=== PATIENT | female | born 1935 | race Caucasian/White ===

== ENCOUNTER 2017-03-30 06:13 | Day surgery (SDC) | payer MEDICARE, BC ==
[~2017-03-30] VITALS: Ht 162.6 cm; Wt 91.0 kg
[~2017-03-30 06:13] MED LIST: ALEN70 PO; ATOR40TA PO; DICLOFENAC SOD150 ML TP; FOLI1 PO; GLIP5 PO; HYDCHL25 PO; MELO7.5 PO; METF500 PO; METTREX2.5 PO; PRED1 PO; PRED5 PO; Prinivil10 MG PO
== END 2017-03-30 08:19 | disposition home or self-care (01) ==
LOC: ORSCSDS 06:13
PROVIDERS: Ophthalmology
PROC: 08RJ3JZ Replacement of Right Lens with Synthetic Substitute, Percutaneous Approach (ICD-10-PCS; principal; 2017-03-30 07:30)
DX: H25.11 Age-related nuclear cataract, right eye (principal); I10 Essential (primary) hypertension; J44.9 Chronic obstructive pulmonary disease, unspecified; E11.9 Type 2 diabetes mellitus without complications; Z79.899 Other long term (current) drug therapy
CPT/HCPCS: 82947; J2250; J3301; J7040; V2632

== ENCOUNTER 2017-05-11 07:04 | Day surgery (SDC) | payer MEDICARE, BC ==
[~2017-05-11] VITALS: Ht 162.6 cm; Wt 90.6 kg
[2017-05-11] MEDS ORDERED: METF500 PO (07:34)
== END 2017-05-11 09:43 | disposition home or self-care (01) ==
LOC: ORSCSDS 07:04
PROVIDERS: Ophthalmology
PROC: 08RK3JZ Replacement of Left Lens with Synthetic Substitute, Percutaneous Approach (ICD-10-PCS; principal; 2017-05-11 08:30)
DX: H25.12 Age-related nuclear cataract, left eye (principal); J44.9 Chronic obstructive pulmonary disease, unspecified; E11.9 Type 2 diabetes mellitus without complications; M06.9 Rheumatoid arthritis, unspecified; Z79.84 Long term (current) use of oral hypoglycemic drugs; Z79.899 Other long term (current) drug therapy
CPT/HCPCS: 82947; J2250; J3010; J3301; J7040; V2632

== ENCOUNTER 2017-07-15 08:17 | Day surgery (SDC) | payer MEDICARE, BC | END 2017-07-15 22:55 | disposition home or self-care (01) | LOC: MOI US 08:17 | PROC: 0HBT3ZX Excision of Right Breast, Percutaneous Approach, Diagnostic (ICD-10-PCS; principal; 2017-07-15) | DX: C50.911 Malignant neoplasm of unspecified site of right female breast (principal); Z17.0 Estrogen receptor positive status [ER+] | CPT/HCPCS: 19083; 77065; 88305; 88360; G0279 ==

== ENCOUNTER → 2020-02-05 | Outpatient (CLI) | payer MEDICARE, BC ==
[2020-02-05 09:51] LABS: Anion Gap 3 mmol/L (6-16); Blood Urea Nitrogen 13 mg/dL (8-24); Bun/Creatinine Ratio 25.8 (12.0-20.0); CO2, Blood 31 mmol/L (21-32); Calcium, Blood 9.5 mg/dL (8.5-10.1); Chloride, Blood 106 mmol/L (98-108); Free Thyroxine 0.96 ng/dL (0.70-1.60); Glomerular Filtration Rate >60 (60-); Glucose, Blood 127 mg/dL (70-99); Magnesium, Blood 2.1 mg/dL (1.6-2.4); Potassium, Blood 4.4 mmol/L (3.5-5.5); Sodium, Blood 140 mmol/L (136-145)
== END | disposition home or self-care (01) ==
LOC: LAB SHORT 07:40 → OLS 07:40 → LAB FUT 03-08 13:20
PROVIDERS: Internal Medicine Cardiovascular Disease
DX: R00.2 Palpitations (principal)
CPT/HCPCS: 36415; 80048; 83735; 84439; 84443

== ENCOUNTER → 2021-02-23 | Outpatient (CLI) | payer MEDICARE, BC | END | disposition home or self-care (01) | LOC: LAB 11:22 → LAB SHORT 11:22 → LAB FUT 07-30 14:10 | DX: I10 Essential (primary) hypertension (principal) | CPT/HCPCS: 82043 ==

== ENCOUNTER 2021-04-12 04:34 | Inpatient (IN) | payer MEDICARE, BC ==
[~2021-04-12] VITALS: Ht 162.6 cm; Wt 84.9 kg
[~2021-04-12 04:34] MED LIST changes: +METF500C PO
[2021-04-12 05:06] LABS: BASOPHILS ABSOLUTE AUTO 0.02 K/mm3 (0.00-0.23); BASOPHILS PERCENT AUTO 0 % (0-2); EOSINOPHILS ABSOLUTE AUTO 0.07 K/mm3 (0.00-0.68); EOSINOPHILS PERCENT AUTO 1 % (0-6); Hematocrit 44.2 % (33.0-51.0); Hemoglobin 14.5 g/dL (11.5-16.0); IMMATURE GRAN ABSOLUTE AUTO 0.03 K/mm3 (0.00-0.10); IMMATURE GRAN PERCENT AUTO 0 % (0-1); LYMPHOCYTES ABSOLUTE AUTO 1.64 K/mm3 (0.84-5.20); LYMPHOCYTES PERCENT AUTO 21 % (21-46); MONOCYTES ABSOLUTE AUTO 0.54 K/mm3 (0.16-1.47); MONOCYTES PERCENT AUTO 7 % (4-13); Mean Corpuscular HGB 29.7 pg (26.0-34.0); Mean Corpuscular HGB Conc 32.8 g/dL (31.5-36.5); Mean Corpuscular Volume 91 fL (80-100); Mean Platelet Volume 9.7 fL (9.1-12.4); NEUTROPHILS ABSOLUTE AUTO 5.52 K/mm3 (1.96-9.15); NEUTROPHILS PERCENT AUTO 71 % (41-73); Platelet Count 221 K/mm3 (150-400); RDW Coefficient Variation 12.5 % (11.7-14.2); RDW Standard Deviation 41.9 fL (35.1-46.3); Red Blood Cell Count 4.88 M/mm3 (3.80-5.20); White Blood Cell Count 7.82 K/mm3 (4.00-11.30)
[2021-04-12 05:33] LABS: Alanine Aminotransfer (ALT/SGP 35 U/L (12-78); Albumin, Blood 3.7 g/dL (3.4-5.0); Alk Phos 97 U/L (50-136); Anion Gap 9 mmol/L (6-16); Aspartate Aminotrans (AST/SGOT 68 U/L (12-37); Bilirubin, Total 0.6 mg/dL (0.1-1.0); Blood Urea Nitrogen 11 mg/dL (8-24); Bun/Creatinine Ratio 29.5 (12.0-20.0); CO2, Blood 25 mmol/L (21-32); Calcium, Blood 9.1 mg/dL (8.5-10.1); Chloride, Blood 103 mmol/L (98-108); Creatinine, Blood 0.37 mg/dL (0.40-1.00); Globulin, Blood 3.7 g/dL (2.2-4.0); Glomerular Filtration Rate >60 (60-); Glucose, Blood 216 mg/dL (70-99); Potassium, Blood 4.8 mmol/L (3.5-5.5); Sodium, Blood 137 mmol/L (136-145); Total Protein, Blood 7.4 g/dL (6.4-8.2); Troponin I 0.046 ng/mL (0.000-0.040)
[2021-04-12 05:43] LABS: Influenza A, PCR NEGATIVE (NEGATIVE); Influenza B, PCR NEGATIVE (NEGATIVE); Resp Syncytial Virus, PCR NEGATIVE (NEGATIVE)
[2021-04-12 05:44] LABS: SARS-Cov-2 (COVID-19) PCR, MMC POSITIVE (NEGATIVE)
--- NOTE | 2021-04-12 18:18 | NUR ---
1720 RECEIVED PT TO RM 327 VIA GURNEY FROM ER. PT ABLE TO TX SELF TO BED. PT ADMITTED FOR SEPSIS PNM R/T COVID. PT TO ER WITH C/O INCREASED DIFFICULTY GETTING TO THE BTHRM D/T INCREASED SOB. PT TO ER WITH BIOX IN 80'S. PT PLACED ON 3L O2, WITH IMPROVEMENT. HX HTN, DM, AND R/A. PT IS A&O, PLEASANT AND CO-OP, BUT VERY MECHOOPDA. SEPSIS BOLUS GIVEN IN ER. PT ON LR AT 100cc/HR. PT LIVES WITH HER . USES A CANE AND FWW AT BASELINE. CURRENTLY WAITING FOR DINNER TRAY. PT REPORTS NOT BEING GIVEN ANYTHING TO EAT SINCE 5 PM YESTERDAY, WHEN SHE WAS AT HOME. DENIED FURTHER NEEDS AT THIS TIME. CALL LT IN REACH.
[2021-04-12] MEDS ORDERED: ANASTROZOLE1 M7 PO (19:11)
[2021-04-12] MEDS ORDERED: SERT50 PO (19:13)
[2021-04-12] MEDS ORDERED: OMEP20ER PO (19:16)
[2021-04-12] MEDS ORDERED: METO25ER PO (19:17)
[2021-04-12] MEDS ORDERED: ASPI81CH PO (19:17)
[2021-04-13 04:36] LABS: BASOPHILS ABSOLUTE AUTO 0.01 K/mm3 (0.00-0.23); BASOPHILS PERCENT AUTO 0 % (0-2); EOSINOPHILS PERCENT AUTO 0 % (0-6); Hematocrit 40.4 % (33.0-51.0); IMMATURE GRAN ABSOLUTE AUTO 0.01 K/mm3 (0.00-0.10); IMMATURE GRAN PERCENT AUTO 0 % (0-1); LYMPHOCYTES ABSOLUTE AUTO 0.69 K/mm3 (0.84-5.20); LYMPHOCYTES PERCENT AUTO 16 % (21-46); MONOCYTES ABSOLUTE AUTO 0.31 K/mm3 (0.16-1.47); MONOCYTES PERCENT AUTO 7 % (4-13); Mean Corpuscular HGB 29.5 pg (26.0-34.0); Mean Corpuscular HGB Conc 32.2 g/dL (31.5-36.5); Mean Corpuscular Volume 92 fL (80-100); Mean Platelet Volume 9.7 fL (9.1-12.4); NEUTROPHILS ABSOLUTE AUTO 3.42 K/mm3 (1.96-9.15); NEUTROPHILS PERCENT AUTO 77 % (41-73); Platelet Count 195 K/mm3 (150-400); RDW Coefficient Variation 12.2 % (11.7-14.2); RDW Standard Deviation 41.1 fL (35.1-46.3); White Blood Cell Count 4.44 K/mm3 (4.00-11.30)
[2021-04-13 05:19] LABS: Alanine Aminotransfer (ALT/SGP 28 U/L (12-78); Albumin, Blood 2.9 g/dL (3.4-5.0); Alk Phos 81 U/L (50-136); Anion Gap 7 mmol/L (6-16); Aspartate Aminotrans (AST/SGOT 15 U/L (12-37); Bilirubin, Total 0.4 mg/dL (0.1-1.0); Blood Urea Nitrogen 13 mg/dL (8-24); Bun/Creatinine Ratio 35.2 (12.0-20.0); CO2, Blood 26 mmol/L (21-32); Calcium, Blood 8.5 mg/dL (8.5-10.1); Chloride, Blood 105 mmol/L (98-108); Creatinine, Blood 0.37 mg/dL (0.40-1.00); Globulin, Blood 2.9 g/dL (2.2-4.0); Glomerular Filtration Rate >60 (60-); Glucose, Blood 257 mg/dL (70-99); Sodium, Blood 138 mmol/L (136-145); Total Protein, Blood 5.8 g/dL (6.4-8.2)
--- NOTE | 2021-04-13 06:02 | NUR ---
SHIFT SUMMARY: PATIENT HAS SLEPT WELL THIS SHIFT. MAINTAINING 02 SAT IN THE HIGH 90'S ON 3L NS. NO REPORTS OF PAIN. ONE ASSIST TO THE BSC DUE TO LINES BEING TRIPPING HAZARDS. PATIENT REMAINS IN ISOLATION FOR COVID.
--- NOTE | 2021-04-13 18:43 | NUR ---
SHIFT SUMMARY A/O X4, VSS, TOLERATING PO, AMBULATES c ASSISTANCE, UP TO CHAIR FOR MEALS, WALKS TO BATHROOM, DID WELL c PT/OT, NO ACUTE EVENTS THIS SHIFT. CALL LIGHT IN REACH, WILL CTM AND REPORT TO MITCHELL RN.
[2021-04-14] MEDS ORDERED: MELO7.5 PO (04:22)
--- NOTE | 2021-04-14 06:54 | NUR ---
SHIFT SUMMARY: PATIENT IS ON 2L NC MAINTAINING SATS IN THE HIGH 90'S. UP TO THE BSC WITH ASSIST OF ONE WITH LINES AND TUBBING. LACTATED RINGERS ARE INFUSING @ 100. PATIENT IS USING IS AND FLUTTER BUT CONTINUES TO NEED ENCOURAGEMENT. PATIENT LOST IV ACCESS DUE TO SLEEPING ON HER HAND. NEW IV ESTABLISHED WITH USE OF US. PATIENT REMAINS IN ENHANCED ISOLATION FOR COVID.
--- NOTE | 2021-04-14 13:08 | NUR ---
1. Who did you speak with? Spoke with patient's Demetra 2. What is the patient's prior level of functions? Patient lives independently in an apartment with her . Daughter Yris Ferrer lives five minutes away. Patient able to perform ADLs with minimal assistance. She has a carpenter cradle and dolly who comes in to help housekeeping needs. There are 15 stairs going up to the apartment. Patient uses a cane when needed. Patient's is presently in rehab at [facility]. 3. What is the patient's current living situation? Patient lives with independently with spouse. 4. Is the patient and/or family able to provide transportation to and from doctor's appointments and greens picker prescriptions? Patient able to drive and has transportation. 5. Does patient still drive? Yes 6. POA/PCP/NOK: NOK: Asa and daughter Yris Ferrer ([phone]). PCP: Dr. Nevaeh GALVAN 7. ANTICIPATED DISCHARGE NEEDS/GOALS: Home -Patient able to manage medication -Preferred Pharmacy [facility] on [address] 8. List barriers to discharge: No barriers on this date; at [facility] 9. Discharge Plan: Home and follow up with [facility] PCP Dr. Herring 10. PCP Follow up appointment: Will be scheduled within seven calendar days of discharge. 11. OTHER COMMENTS: Patient is not a
[2021-04-14] MEDS ORDERED: XARELTO20 MG PO (14:18)
[2021-04-14] MEDS ORDERED: ALBU90OI INH (14:28)
[2021-04-14] MEDS ORDERED: AZIT500 PO (14:45)
--- NOTE | 2021-04-14 17:11 | NUR ---
DISCHARGE SUMMARY PATIENT DISCHARGED HOME WITH HOME HEALTH. PATIENT'S MEDICATIONS FAXED TO PREFERRED PHARMACY AND PATIENT'S DAUGHTER PICKED THEM UP BEFORE PICKING UP PATIENT. REVIEWED DISCHARGE PAPERWORK AND MEDICATION WITH PATIENT, ALL QUESTIONS ANSWERED. PATIENT HOME O2 EVAL DONE AND O2 NOT NEEDED AT HOME. PATIENT AND ALL HER BELONGINGS TAKEN DOWN VIA WHEELCHAIR TO PERSONAL VEHICLE.
--- NOTE | 2021-04-14 17:33 | NUR ---
Per Dr. Guerrero discharge appropriate on: 04/14/21. Discharged discussed with patient and initially had some opposition, but is in agreement with discharge and does not oppose. Patient is discharged to her residence with Home Health. Transportation to residence provided by family (daughter Yris). Summer from [facility] contacted and notified of discharge today. DME: Home Oxygen evaluation completed; no home Oxygen required. Patient reminded to contact her PCP if he has any questions regarding medication management or social service needs and to go to urgent care if condition worsens. Patient is COVID positive. [facility] will contact patient to schedule telehealth hospital PCP follow up with Dr. Vanessa Packer. No barriers to discharge at this time.
== END 2021-04-14 17:05 | disposition home health service (06) | DRG 871 ==
LOC: ER 04:34 → ERHOLD 08:00 → MEDS 17:03
PROVIDERS: Emergency Medicine; ADMIT Hospitalist
PROC: 8E0ZXY6 Isolation (ICD-10-PCS; principal; 2021-04-12)
DX: A41.89 Other specified sepsis (principal); U07.1 COVID-19; J12.82 Pneumonia due to coronavirus disease 2019; J96.01 Acute respiratory failure with hypoxia; J44.0 Chronic obstructive pulmonary disease with (acute) lower respiratory infection; E87.2 Acidosis; I24.8 Other forms of acute ischemic heart disease; D84.821 Immunodeficiency due to drugs; R65.20 Severe sepsis without septic shock; M06.9 Rheumatoid arthritis, unspecified; E78.5 Hyperlipidemia, unspecified; E11.9 Type 2 diabetes mellitus without complications; I11.9 Hypertensive heart disease without heart failure; H60.90 Unspecified otitis externa, unspecified ear; F32.A Depression, unspecified; E66.9 Obesity, unspecified; M85.80 Other specified disorders of bone density and structure, unspecified site; Z68.31 Body mass index [BMI] 31.0-31.9, adult; Z79.52 Long term (current) use of systemic steroids; M19.90 Unspecified osteoarthritis, unspecified site; Z96.651 Presence of right artificial knee joint; Z28.21 Immunization not carried out because of patient refusal; Z88.8 Allergy status to other drugs, medicaments and biological substances; Z79.84 Long term (current) use of oral hypoglycemic drugs; Z79.899 Other long term (current) drug therapy; Z90.49 Acquired absence of other specified parts of digestive tract; Z90.89 Acquired absence of other organs; Z98.890 Other specified postprocedural states; Z90.710 Acquired absence of both cervix and uterus
CPT/HCPCS: 0241U; 36415; 71045; 80053; 82947; 83605; 83880; 84145; 84484; 85025; 85379; 87040; 87070; 87205; 93005; 93010; 94640; 96365; 96366; 96375; 97110; 97162; 97165; 97535; 99285-25; A9270; J0456; J0696; J1650; J2920; J2930; J7050; J7120

== ENCOUNTER 2021-04-22 15:01 | Inpatient (IN) | payer MEDICARE, BC ==
[~2021-04-22] VITALS: Ht 162.6 cm; Wt 80.1 kg
[~2021-04-22 15:01] MED LIST changes: +ALBU90OI INH; +ANASTROZOLE1 M7 PO; +ASPI81CH PO; +AZIT500 PO; +METO25ER PO; +OMEP20ER PO; +SERT50 PO; +XARELTO20 MG PO
[2021-04-22 16:05] LABS: BASOPHILS ABSOLUTE AUTO 0.02 K/mm3 (0.00-0.23); BASOPHILS PERCENT AUTO 0 % (0-2); EOSINOPHILS ABSOLUTE AUTO 0.01 K/mm3 (0.00-0.68); EOSINOPHILS PERCENT AUTO 0 % (0-6); Hematocrit 38.1 % (33.0-51.0); Hemoglobin 12.7 g/dL (11.5-16.0); IMMATURE GRAN ABSOLUTE AUTO 0.02 K/mm3 (0.00-0.10); IMMATURE GRAN PERCENT AUTO 0 % (0-1); LYMPHOCYTES ABSOLUTE AUTO 0.95 K/mm3 (0.84-5.20); LYMPHOCYTES PERCENT AUTO 19 % (21-46); MONOCYTES ABSOLUTE AUTO 0.29 K/mm3 (0.16-1.47); MONOCYTES PERCENT AUTO 6 % (4-13); Mean Corpuscular HGB 29.2 pg (26.0-34.0); Mean Corpuscular HGB Conc 33.3 g/dL (31.5-36.5); Mean Corpuscular Volume 88 fL (80-100); NEUTROPHILS ABSOLUTE AUTO 3.73 K/mm3 (1.96-9.15); NEUTROPHILS PERCENT AUTO 74 % (41-73); Platelet Count 227 K/mm3 (150-400); RDW Coefficient Variation 12.4 % (11.7-14.2); RDW Standard Deviation 39.8 fL (35.1-46.3); Red Blood Cell Count 4.35 M/mm3 (3.80-5.20); White Blood Cell Count 5.02 K/mm3 (4.00-11.30)
[2021-04-22 16:30] LABS: Alanine Aminotransfer (ALT/SGP 30 U/L (12-78); Albumin, Blood 3.1 g/dL (3.4-5.0); Albumin/Globulin Ratio 0.9 (0.8-1.8); Alk Phos 90 U/L (50-136); Anion Gap 8 mmol/L (6-16); Aspartate Aminotrans (AST/SGOT 25 U/L (12-37); Bilirubin, Total 0.5 mg/dL (0.1-1.0); Blood Urea Nitrogen 10 mg/dL (8-24); Bun/Creatinine Ratio 34.2 (12.0-20.0); CO2, Blood 25 mmol/L (21-32); Calcium, Blood 8.8 mg/dL (8.5-10.1); Chloride, Blood 104 mmol/L (98-108); Creatinine, Blood 0.29 mg/dL (0.40-1.00); Globulin, Blood 3.4 g/dL (2.2-4.0); Glomerular Filtration Rate >60 (60-); Glucose, Blood 206 mg/dL (70-99); Potassium, Blood 3.2 mmol/L (3.5-5.5); Sodium, Blood 137 mmol/L (136-145); Total Protein, Blood 6.5 g/dL (6.4-8.2)
--- NOTE | 2021-04-22 23:45 | NUR ---
ARRIVAL TO ICU PT ARRIVES VIA GURNEY TO ICU 4. PT INTUBATED WITH VENT SETTINGS AC/VC 16/350/8/50%. PT RECEIVING PROPOFOL AND LEVOPHED 10MCG/MIN. WHILE MOVING PT OVER TO BED, PT BEGINS TO WAKEN AND MOVES UPPER EXTREMITIES TOWARD ETT. BILAT WRIST RESTRAINTS IN PLACE. HR 80S-120S AFIB ON MONITOR. SBP 120S.
[2021-04-23 02:04] LABS: CPK Creatine Kinase 62 U/L (26-193)
[2021-04-23 02:49] LABS: Source, Urine Foley catheter
[2021-04-23 02:51] LABS: Bilirubin, Urine Neg (Neg); Blood, Urine Neg (Neg); Glucose Qualitative, Urine 1+ (Neg); Ketones, Urine 2+ (Neg); Leukocyte Esterase, Urine Neg (Neg); Nitrite, Urine Neg (Neg); Protein, Urine 2+ (Neg); Urobilinogen, Urine 1+ (Normal); pH, Urine 6.5 (5.0-8.0)
[2021-04-23 03:04] LABS: Appearance, Urine Clear (Clear); Bacteria Rare /hpf; Color, Urine Yellow (P-Yellow); Red Blood Cells, Urine 0-2 /hpf (0-2); Squamous Epithelial Cells Rare /hpf (Few); White Blood Cells, Urine 0-2 /hpf (0-5)
[2021-04-23 03:54] LABS: PCO2 Arterial 39.2 mmHg (35-45); PO2 Arterial 71.5 mmHg (80-100); pH Blood Arterial 7.41 (7.35-7.45)
--- NOTE | 2021-04-23 06:05 | NUR ---
SHIFT SUMMARY PT REMAINS INTUBATED WITH VENT SETTINGS AC/VC 16/350/8/40%. PT RECEIVING PROPOFOL 50MCG/KG/MIN, LEVOPHED 3MCG/MIN AND NS TKO. PT CURRENTLY RECEIVING KCL. OGT CONNECTED TO LOW INT SUCTION. ROBLES PATENT AND DRAINING REY URINE. TALKED TO DAUGHTER ANGELICA ON PHONE IN EARLY AM, UPDATED ON PT'S CONDITION. DAUGHTER STS SHE HAD CONVERSATION WITH PT REGARDING VENTILATORS YESTERDAY AND THE PT STATED SHE "WOULDN'T WANT THAT". PLAN FOR PALLIATIVE CARE TO BECOME INVOLVED AND DISCUSS CASE WITH ANGELICA AND FAMILY. PLAN FOR ECHO THIS AM. WILL REPORT TO ONCOMING RN.
[2021-04-23 06:47] LABS: BASOPHILS ABSOLUTE AUTO 0.03 K/mm3 (0.00-0.23); BASOPHILS PERCENT AUTO 1 % (0-2); EOSINOPHILS ABSOLUTE AUTO 0.03 K/mm3 (0.00-0.68); EOSINOPHILS PERCENT AUTO 1 % (0-6); Hemoglobin 11.1 g/dL (11.5-16.0); Mean Corpuscular HGB 29.2 pg (26.0-34.0); Mean Corpuscular HGB Conc 32.6 g/dL (31.5-36.5); Mean Corpuscular Volume 90 fL (80-100); Mean Platelet Volume 10.2 fL (9.1-12.4); Platelet Count 243 K/mm3 (150-400); RDW Coefficient Variation 12.9 % (11.7-14.2); RDW Standard Deviation 42.2 fL (35.1-46.3); White Blood Cell Count 5.83 K/mm3 (4.00-11.30)
[2021-04-23 06:52] LABS: IMMATURE GRAN ABSOLUTE AUTO 0.02 K/mm3 (0.00-0.10); IMMATURE GRAN PERCENT AUTO 0 % (0-1); LYMPHOCYTES ABSOLUTE AUTO 1.83 K/mm3 (0.84-5.20); LYMPHOCYTES PERCENT AUTO 31 % (21-46); MONOCYTES ABSOLUTE AUTO 0.34 K/mm3 (0.16-1.47); MONOCYTES PERCENT AUTO 6 % (4-13); NEUTROPHILS ABSOLUTE AUTO 3.58 K/mm3 (1.96-9.15); NEUTROPHILS PERCENT AUTO 62 % (41-73)
--- NOTE | 2021-04-23 07:11 | NUR ---
TOOK OVER CARE OF PT AT 0700 ON 04/23/21. PT IS CURRENTLY BRADYCARDIC WITH HR IN THE 50'S. PT IS VENTILATED WITH VOLUME CONTROL SETTINGS OF 16/350/8/35%. PT CURRENTLY HAS 50 OF PROPOFOL ANF 3 OF LEVO RUNNING. PT IS STILL IN ISOLATION FROM PREVIOUS ADMIT OF COVID.
[2021-04-23 07:14] LABS: Alanine Aminotransfer (ALT/SGP 44 U/L (12-78); Albumin, Blood 2.5 g/dL (3.4-5.0); Albumin/Globulin Ratio 0.9 (0.8-1.8); Alk Phos 153 U/L (50-136); Anion Gap 8 mmol/L (6-16); Aspartate Aminotrans (AST/SGOT 53 U/L (12-37); Bilirubin, Total 0.4 mg/dL (0.1-1.0); Blood Urea Nitrogen 12 mg/dL (8-24); CO2, Blood 25 mmol/L (21-32); Calcium, Blood 7.9 mg/dL (8.5-10.1); Chloride, Blood 106 mmol/L (98-108); Creatinine, Blood 0.52 mg/dL (0.40-1.00); Globulin, Blood 2.7 g/dL (2.2-4.0); Glomerular Filtration Rate >60 (60-); Glucose, Blood 203 mg/dL (70-99); Potassium, Blood 3.5 mmol/L (3.5-5.5); Sodium, Blood 139 mmol/L (136-145); Total Protein, Blood 5.2 g/dL (6.4-8.2)
[2021-04-23 07:18] LABS: CPK Creatine Kinase 53 U/L (26-193)
--- NOTE | 2021-04-23 10:46 | NUR ---
PT PLACED ON PRESSURE SUPPORT 02/25 30% FiO2
--- NOTE | 2021-04-23 15:28 | NUR ---
PROVIDER NOTIFIED OF PROLONGED QT.
--- NOTE | 2021-04-23 18:09 | NUR ---
PT ON VENTILATOR ON PRESSURE SUPPORT 10/23 35% SINCE 1030 THIS MORNING. 35 OF PROPOFOL RUNNING. NEURO; PT ABLE TO FOLLOW ALL COMMANDS DURING SEDATION HOLIDAY, PUPILS EQUAL AND REACTIVE. ALL BRAINSTEM REFLEXES PRESENT RESP: PT HAS PERIODS OF IRREGULAR BREATHING, THEN NORMALIZES. LUNG SOUNDS IN BASES ARE ABSENT, CLEAR IN BILAT UPPER LOBES. MINIMAL SECRETIONS OF BEACH/RED COLOR. SPUTUM CULTURE SENT TODAY. SEE CTPE RESULTS. CXR SHOWED WORSENING PNA FROM PREVIOUS ADMIT. CV: PT HAS A HR RANGING BETWEEN 46-76. QT IS PROLONGED, MAG LEVEL SENT TO OUTSIDE FACILITY. SHOULD RESULT IN AM. LEVO OFF SINCE AROUND 1030. ALL PULSES PRESENT. SCD'S IN PLACE GI/: OG PLACED TO LOWS WITH BILE OUTPUT. ROBLES IN PLACE WITH 50-100ML/HR OUTPUT. 40 OF LASIX GIVEN TODAY FOR PULMONARY EDEMA.
[2021-04-24 03:51] LABS: BASOPHILS PERCENT AUTO 0 % (0-2); EOSINOPHILS PERCENT AUTO 0 % (0-6); Hematocrit 33.5 % (33.0-51.0); Hemoglobin 11.1 g/dL (11.5-16.0); Mean Corpuscular HGB 29.4 pg (26.0-34.0); Mean Corpuscular HGB Conc 33.1 g/dL (31.5-36.5); Mean Corpuscular Volume 89 fL (80-100); Mean Platelet Volume 10.2 fL (9.1-12.4); Platelet Count 214 K/mm3 (150-400); RDW Coefficient Variation 12.6 % (11.7-14.2); Red Blood Cell Count 3.78 M/mm3 (3.80-5.20); White Blood Cell Count 2.46 K/mm3 (4.00-11.30)
[2021-04-24 04:10] LABS: Anion Gap 7 mmol/L (6-16); Blood Urea Nitrogen 16 mg/dL (8-24); Bun/Creatinine Ratio 36.7 (12.0-20.0); CO2, Blood 27 mmol/L (21-32); Calcium, Blood 7.9 mg/dL (8.5-10.1); Chloride, Blood 107 mmol/L (98-108); Creatinine, Blood 0.44 mg/dL (0.40-1.00); Glomerular Filtration Rate >60 (60-); Glucose, Blood 242 mg/dL (70-99); Potassium, Blood 3.3 mmol/L (3.5-5.5); Sodium, Blood 141 mmol/L (136-145)
[2021-04-24 04:15] LABS: IMMATURE GRAN ABSOLUTE AUTO 0.02 K/mm3 (0.00-0.10); IMMATURE GRAN PERCENT AUTO 1 % (0-1); LYMPHOCYTES ABSOLUTE AUTO 0.85 K/mm3 (0.84-5.20); LYMPHOCYTES PERCENT AUTO 35 % (21-46); MONOCYTES PERCENT AUTO 4 % (4-13); NEUTROPHILS ABSOLUTE AUTO 1.49 K/mm3 (1.96-9.15); NEUTROPHILS PERCENT AUTO 61 % (41-73)
--- NOTE | 2021-04-24 06:48 | NUR ---
SHIFT SUMMARY: NO SIGNIFICANT CHANGES T/O SHIFT. PT CONTINUES TO BE ON PROPOFOL FOR SEDATION. PT ABLE TO RESPOND TO VERBAL COMMANDS ON SEDATION VACATION WITH PROPOFOL AT 15MCG/KG/MIN, AFTER 5 MINUTES PT UNABLE TO TOLERATE VENT, PROPOFOL INCREASED. PT HAS BEEN IN SINUS ARRYTHMIA, PAC'S, HR BETWEEN 60'S. PT ABHINAV'S DOWN INTO THE 40'S AT TIMES, DOES NOT MAINTAIN THERE. BP STABLE. OGT TO LIS, GREEN BILE NOTED. ROBLES PATENT DRAINING TO GRAVITY 350ML, YELLOW/CLEAR URINE NOTED.
--- NOTE | 2021-04-24 07:26 | NUR ---
PT RESTING ON VENTILATOR, SET ON PRESSURE SUPPORT THROUGHOUT THE NIGHT WITH SETTINGS OF 8/5 35% FiO2. PT HAS 40 OF PROPOFOL RUNNING, OTHERWISE STABLE AND TOLERATING TREATMENTS AT THIS TIME.
--- NOTE | 2021-04-24 10:05 | NUR ---
PT VENT SETTINGS CHANGED TO PRESSURE SUPPORT 10/5 35% FiO2 BY DR. ELIZABETH
--- NOTE | 2021-04-24 17:38 | NUR ---
SUMMARY VENT SETTINGS 10/8 35% FiO2, SEDATED WITH 50 OF PROPOFOL NEURO; PT FOLLOWED COMMANDS WITH ALL EXTREMETIES DURING SEDATION HOLIDAY, PUPILS EQUAL, BRISK, AND ROUND. LUNGS; DIMINISHED BASES, CLEAR BILAT UPPER LOBES- INTERMITTENT COARSE CRACKLES. MINIMAL TO NO SECRETIONS UPON SUCTIONING. GI/; SMEAR BM TODAY, 50-75ML/HR YELLOW URINE OUTPUT. CARDIAC; CONTINUED PROLONGED QT, IRREGLAR HR 46-70'S. PULSES PRESENT THROUGHOUT. BUE EDEMA WORSENEING TO +2.
--- NOTE | 2021-04-24 20:00 | NUR ---
ASSUMED CARE OF PT AT 1915. REPORT RECEIVED. PT PRESENTS IN BED. INTUBATED AND ON PRESSURE SUPPORT. RT HAS COME TO THE ROOM AND CHANGED PT BACK TO AC 16, Tv 350, PEEP 8, FIO2 35%. PT MAINTAINS SATURATIONS > 90 PERCENT WITH THIS. HAVE SUCTIONED PER ETT. NO SECRETIONS RETURNED. PT ON PROPOFOL AT 50 MCG'S/KG/MIN WITH RESULTING SAS 3. PT IN NO APPARENT DISTRESS. WILL REVIEW CHART AND PLAN OF CARE FOR THIS PT.
--- NOTE | 2021-04-25 | NUR ---
PT DOES RESPOND TO ORAL CARE. DOES RESIST MODERATELY. PT CONTINUES WITH ETCO2 30-40. SATURATIONS > 90 PERCENT. PROPOFOL HAS BEEN REDUCED TO 45 MCG'S/KG/MIN. PT MAINTAINS SAS 3. WILL CONTINUE TO MONITOR.
[2021-04-25 05:00] LABS: BASOPHILS PERCENT AUTO 0 % (0-2); EOSINOPHILS PERCENT AUTO 0 % (0-6); Hematocrit 34.3 % (33.0-51.0); Hemoglobin 11.1 g/dL (11.5-16.0); IMMATURE GRAN ABSOLUTE AUTO 0.03 K/mm3 (0.00-0.10); IMMATURE GRAN PERCENT AUTO 1 % (0-1); LYMPHOCYTES ABSOLUTE AUTO 0.68 K/mm3 (0.84-5.20); LYMPHOCYTES PERCENT AUTO 21 % (21-46); MONOCYTES ABSOLUTE AUTO 0.21 K/mm3 (0.16-1.47); MONOCYTES PERCENT AUTO 7 % (4-13); Mean Corpuscular HGB 29.2 pg (26.0-34.0); Mean Corpuscular HGB Conc 32.4 g/dL (31.5-36.5); Mean Corpuscular Volume 90 fL (80-100); Mean Platelet Volume 10.2 fL (9.1-12.4); NEUTROPHILS ABSOLUTE AUTO 2.31 K/mm3 (1.96-9.15); NEUTROPHILS PERCENT AUTO 72 % (41-73); Platelet Count 250 K/mm3 (150-400); RDW Coefficient Variation 12.6 % (11.7-14.2); RDW Standard Deviation 41.5 fL (35.1-46.3); White Blood Cell Count 3.23 K/mm3 (4.00-11.30)
--- NOTE | 2021-04-25 05:16 | NUR ---
PT IN PROCESS OF SEDATION VACATION. 15 MINUTES SINCE START, PT HAS NOT RESPONDED. WILL CONTINUE VACATION AND ASSESS PT'S ABILITY TO FOLLOW COMMANDS. OGT CONTINUES TO LOW WALL SUCTION. BILE COLORED LIQUID RETURNED. DURING BEDBATH, PT'S MEPILEX DRESSING TO COCYX AND HER SACRAL AREA PEELED BACK TO INSPECT SKIN INTEGRITY. NO OPEN AREAS AND SKIN HEALTHY. NO REDNESS OBSERVED. DID REPLACE MEPILIX DRESSING TO PROVIDE FOR PROTECTION OF SKIN INTEGRITY.
[2021-04-25 05:21] LABS: Alanine Aminotransfer (ALT/SGP 30 U/L (12-78); Albumin, Blood 2.3 g/dL (3.4-5.0); Albumin/Globulin Ratio 0.7 (0.8-1.8); Alk Phos 113 U/L (50-136); Anion Gap 8 mmol/L (6-16); Aspartate Aminotrans (AST/SGOT 16 U/L (12-37); Bilirubin, Total 0.3 mg/dL (0.1-1.0); Blood Urea Nitrogen 29 mg/dL (8-24); Bun/Creatinine Ratio 54.3 (12.0-20.0); CO2, Blood 26 mmol/L (21-32); Calcium, Blood 8.2 mg/dL (8.5-10.1); Chloride, Blood 107 mmol/L (98-108); Creatinine, Blood 0.53 mg/dL (0.40-1.00); Globulin, Blood 3.1 g/dL (2.2-4.0); Glomerular Filtration Rate >60 (60-); Glucose, Blood 279 mg/dL (70-99); Potassium, Blood 3.5 mmol/L (3.5-5.5); Sodium, Blood 141 mmol/L (136-145); Total Protein, Blood 5.4 g/dL (6.4-8.2)
--- NOTE | 2021-04-25 06:18 | NUR ---
PT BACK TO 45 MCG'S PROPOFOL/KG/MIN. WITH SEDATION VACATION, PT DOES NOT FOLLOW COMMANDS. DOES OPEN HER EYES AND BUT WILL NOT AUTOMATIC RIVETING MACHINE OPERATOR OR WIGGLE TOES. DOES HAVE A SCOWL ON HER FACE AND MAY CHOOSE TO NOT FOLLOW COMMANDS. URINE OUTPUT ONLY 300 ML FOR THE NIGHT. WILL CONTINUE TO MONITOR PT, AND WILL REPORT OFF TO ONCOMING RN.
--- NOTE | 2021-04-25 07:49 | NUR ---
TOOK OVER CARE OF PT AT 0705 04/25/21, PT RESTING ON VENTILATOR WITH ASSIST CONTROL SETTINGS OF 16/350/8 35% FiO2 AND 40 OF PROPFOL RUNNING ON THE PUMP. PT BRADYCARDIC WITH HR 47-50, OTHERWISE STABLE VITALS AT THIS TIME.
--- NOTE | 2021-04-25 10:40 | NUR ---
PT PLACED ON PRESSURE SUPPORT /8 35%, PROPOFOL AT 30
--- NOTE | 2021-04-25 17:21 | NUR ---
VITAL HIGH PROTIEN TUBEW FEED STARTED AT 1700 AT 25ML/HR WITH 30ML Q4 FLUSHES PROGRAMMED IN PUMP. GOAL OF 40, INCREASE BY 10-20ML Q8
--- NOTE | 2021-04-25 17:23 | NUR ---
SUMMARY VENT PS 10/8 35% FiO2, 25 PROPOFOL NEURO- NO SEDATION HOLIDAY TODAY DT EXPECTED EXTUBATION AND PT'S AGITATION THAT HAS BEEN REQUIRING ATIVAN PUSHES AFTERWARDS. INSTEAD SLOWLY DECREASED PROPOFOL THROUGHOUT SHIFT. PT OPENS EYES TO VOICE AND MOVES ALL EXTREMETIES PURPOSEFULLY. PUPILS REACTIVE, ROUND, AND EQUAL. PT FURROWS BROWS WHEN ASKED TO FOLLOW A COMMAND. LUNGS- CLEAR BILAT UPPER LOABES, DIMINISHED BASED. MINIMAL/SCANT SECRETIONS. CARDIAC- QT INTERVAL STILL GREATER THAN .5, NO MAG REPLACEMENT ORDERED TODAY, PROVIDERS AWARE. PT HAS BEEN ABHINAV 40-50'S MOST OF THE SHIFT. PULSES PRESENT THROUGHOUT. GI/- PT HAD A TOTAL OF 950 OF YELLOW URINE OUT THIS SHIFT. OG HAD 250 OF BILE OUTPUT BEFORE PLACED ON TUBE FEED AT 1700. RUNNING AT 25ML/HR, GOAL OF 40. PT BG'S HAVE BEEN MID 200'S, PROVIDER AWARE, STILL ON LOW DOSE INSULIN SCALE. SKIN- APPEARS PT MAY BE DEVEOLPING A YEAST INFECTION. GROIN IS MOIST AND RED. POWDER HAS BEEN APPLIED. MICOTIN ORDER OUT OF ORDER PER PHARMACY.
--- NOTE | 2021-04-25 20:00 | NUR ---
ASSUMED CARE OF PT AT 1915. REPORT RECEIVED. PT PRESENTS IN BED INTUBATED. RESPIRATORY HAD COVERTED PT TO AC/VC 16, Tv 350, PEEP 8, FIO2 35%. PT ON PROPOFOL AT 35 MCG'S/KG/MIN FOR SEDATION. PT MAINTAINS SAS 3-4. NO S/S DISTRESS TO NOTE. PT MAINTAINS > 90 PERCENT SATURATION WITH CURRENT VENT SETTINGS. WILL REVIEW CHART AND PLAN OF CARE FOR THIS PT.
--- NOTE | 2021-04-26 | NUR ---
PT HAS SMALL BOWEL MOVEMENT. FULL BEDBATH DONE AT THAT TIME, AND LINEN CHANGE. PT AWAKENS SOME AND BECOMES SOMEWHAT ANXIOUS. MEPILEX DRESSING TO COCCYX/SACRAL AREA PEELED BACK TO INSPECT SKIN. NO REDNESS OR BREAKDOWN TO NOTE. REPLACED DRESSING. WILL CONTINUE TO MONITOR PT.
--- NOTE | 2021-04-26 02:59 | NUR ---
RESPIRATORY THERAPY TO ROOM TO CHANGE PT BACK TO PRESSURE SUPPORT WITH SOME ANTICIPATION OF BEING EXTUBATED ON DAYSHIFT. PT CONTINUES ON TUBE FEED WITH LESS THAN 5 ML RESIDUALS.
[2021-04-26 03:32] LABS: BASOPHILS PERCENT AUTO 0 % (0-2); EOSINOPHILS PERCENT AUTO 0 % (0-6); Hematocrit 35.2 % (33.0-51.0); Hemoglobin 11.1 g/dL (11.5-16.0); IMMATURE GRAN ABSOLUTE AUTO 0.02 K/mm3 (0.00-0.10); IMMATURE GRAN PERCENT AUTO 0 % (0-1); LYMPHOCYTES ABSOLUTE AUTO 0.53 K/mm3 (0.84-5.20); LYMPHOCYTES PERCENT AUTO 11 % (21-46); MONOCYTES PERCENT AUTO 6 % (4-13); Mean Corpuscular HGB 28.4 pg (26.0-34.0); Mean Corpuscular HGB Conc 31.5 g/dL (31.5-36.5); Mean Corpuscular Volume 90 fL (80-100); Mean Platelet Volume 10.1 fL (9.1-12.4); NEUTROPHILS ABSOLUTE AUTO 4.06 K/mm3 (1.96-9.15); NEUTROPHILS PERCENT AUTO 83 % (41-73); Platelet Count 279 K/mm3 (150-400); RDW Coefficient Variation 12.4 % (11.7-14.2); RDW Standard Deviation 40.6 fL (35.1-46.3); Red Blood Cell Count 3.91 M/mm3 (3.80-5.20); White Blood Cell Count 4.91 K/mm3 (4.00-11.30)
[2021-04-26 03:45] LABS: Albumin, Blood 2.3 g/dL (3.4-5.0); Anion Gap 6 mmol/L (6-16); Blood Urea Nitrogen 33 mg/dL (8-24); Bun/Creatinine Ratio 74.7 (12.0-20.0); CO2, Blood 29 mmol/L (21-32); Calcium, Blood 8.2 mg/dL (8.5-10.1); Chloride, Blood 107 mmol/L (98-108); Creatinine, Blood 0.44 mg/dL (0.40-1.00); Glomerular Filtration Rate >60 (60-); Glucose, Blood 327 mg/dL (70-99); Phosphorus, Blood 2.2 mg/dL (2.5-4.9); Potassium, Blood 3.6 mmol/L (3.5-5.5); Sodium, Blood 142 mmol/L (136-145)
--- NOTE | 2021-04-26 04:24 | NUR ---
RESPIRATORY THERAPY HAS CHANGED PT TO PRESSURE SUPPORT AND HAD TO RETURN HER TO AC SETTINGS SECONDARY TO PT HAVING APNEIC EPISODE WHICH HAD TRIGGERED VENT BACK TO AC SETTINGS. PT WAS ON 30 MCG'S/KG/MIN PROPOFOL. AFTER THIS, PT WAS PLACED TO SEDATION VACATION WHEREAS SHE BECOMES VERY ANXIOUS. DID REQUIRE HAVING A STOOL CLEANUP DURING THIS TIME, WHEREASE SHE AGGRESSIVELY ATTEMPTS TO GET AHOLD OF HER ETT. PT ALSO ATTEMPTS TO KICK STAFF, AND SLAP STAFF. MUCH EFFORT GIVEN TO REASSURE PT, AND HAVE IT WHERE SHE COULD UNDERSTAND THE CLEANING, AND THAT SHE WAS A PATIENT IN ICU. THIS DID NOT HELP MUCH. PT PRESENTLY BACK TO 30 MCG'S/KG/MIN PROPOFOL. AGAIN IS TOLERATING VENT WELL. DOES RESIST ORAL CARE, AND TURNS BUT WILL RETURN TO RESTING WHEN NOT DISTURBED. WILL CONTINUE TO MONITOR PT.
--- NOTE | 2021-04-26 08:15 | NUR ---
INITIAL ASSESSMENT PATIENT INTUBATED AND SEDATED. PATIENT RESPONDS TO NOXIOUS STIMULI. PATIENT WITHDRAWS ALL EXTREMITIES FROM PAIN. PATIENT ANXIOUS AND IRRITABLE OFF OF SEDATION. PATIENT AFEBRILE. NO SIGNS OF PAIN NOTED. PATIENT ON VENT SETTINGS OF AC 16, TV 350, PEEP 8 AND 35% FIO2. LUNGS CLEAR AND DIMINISHED THROUGHOUT. BREATHS SHALLOW. NO SPUTUM NOTED WITH ETT SUCTIONING. PATIENT IN SB, HR IN THE 40S. SBP 120S TO 130S. EDEMA NOTED TO EXTREMITIES, MOSTLY HANDS. ABDOMEN MILDLY DISTENDED, SOFT, WITH HYPOACTIVE BOWEL SOUNDS NOTED. OG IN PLACE. VHP INFUSING AT GOAL RATE OF 40 MLS/ HOUR WITH 30 ML WATER FLUSH Q4H. LAST BM TODAY. ROBLES IN PLACE DRAINING YELLOW COLORED URINE. COCCYX REDDENED, BLANCHEABLE; MEPILEX IN PLACE. SCATTERED BRUISES NOTED. GROIN FOLDS REDDENED. SKIN PALE, COOL, FRAGILE. PROPOFOL INFUSING AT 25 MCG/KG/ MINUTE. BED LOW, CALL LIGHT IN REACH. WILL CONTINUE TO MONITOR PATIENT FREQUENTLY THROUGHOUT SHIFT.
--- NOTE | 2021-04-26 08:45 | NUR ---
TUBE FEED TURNED OFF BY DR. ELIZABETH.
--- NOTE | 2021-04-26 12:00 | NUR ---
DR. ELIZABETH INFORMED THAT PATIENT OFF TF SINCE EXTUBATED BUT DOES NOT HAVE MAINTENANCE FLUIDS OR CLINIMIX INFUSING. INFORMED THAT PHOSPHORUS 2.2 AND POTASSIUM 3.6. INFORMED THAT HR DOWN TO 30S ON FOLDER OPERATOR. NO ORDERS RECEIVED. DR. ELIZABETH STATED HE WOULD LOOK AT PATIENT'S CHART AND PLACE ORDERS.
--- NOTE | 2021-04-26 12:00 | NUR ---
PATIENT EXTUBATED AT 1015. PATIENT SATTING 90% AND GREATER ON 6 L NC. PATIENT ONLY ORIENTED TO SELF. PATIENT VERY IRRITABLE, AGITATED AND ANXIOUS. PATIENT IS NOT FOLLOWING COMMANDS AT THIS TIME. SPEECH GARBLED AND RASPY. PATIENT HAS TEMP OF 99.1 DEGREES FAHRENHEIT. HR IN THE 80S. SBP IN THE 160S. OG REMOVED WHEN PATIENT EXTUBATED. SON AND DAUGHTER CALLED AND INFORMED THAT PATIENT EXTUBATED. NO OTHER ACUTE CHANGES TO NOTE ON AT THIS TIME. WILL CONTINUE TO MONITOR.
--- NOTE | 2021-04-26 16:30 | NUR ---
PATIENT AFEBRILE. PATIENT VERY [place]. DAUGHTER BROUGHT HEARING AIDES IN. PATIENT MOSTLY ORIENTED TO SELF, FAMILY, FOLLOWING DIRECTIONS AND THAT SHE IS IN [place]. PATIENT DOES STILL BECOME CONFUSED OFF AND ON. PATIENT COOPERATIVE. HR IN THE 70S. SBP IN THE 150S. PVCS AND PACS NOTED. PATIENT ON 6 L HF NC. WILL CONTINUE TO MONITOR.
--- NOTE | 2021-04-26 19:11 | NUR ---
SHIFT SUMMARY PATIENT INTUBATED AND SEDATED THIS AM. PATIENT AGITATED AND ANXIOUS WHEN INTUBATED. PATIENT EXTUBATED AT 1015. PATIENT DELIRIOUS, AGITATED, UPSET, CONFUSED AFTER EXTUBATION. PATIENT TRYING TO CRAWL OUT OF BED AND PULL AT LINES AND IVS SO WAS PLACED IN VEST AND SOFT WRIST RESTRAINTS. PATIENT DAUGHTER CALLED AND LET VISIT. EITHER VISIT WITH DAUGHTER OR PATIENT'S MIND CLEARING IMPROVED COOPERATION AND RELAXED PATIENT. PATIENT ABLE TO MOVE ALL EXTREMITIES AND NOW HELP WITH REPOSITIONING. PATIENT HAD TMAX OF 99.1 DEGREES FAHRENHEIT THIS SHIFT. PATIENT ON 6 L HF NC. PATIENT COUGHING UP BROWN SPUTUM. PATIENT IN SB TO SR WITH PACS AND PVCS. HR 40S TO 90S. SBP 120S TO 160S. OG AND TF DC'D WHEN EXTUBATED. NO BM THIS SHIFT. PATIENT NPO AT THIS TIME. ROBLES DRAINED 2450 MLS OF YELLOW COLORED URINE THIS SHIFT. NO CHANGES TO SKIN NOTED. NS INFUSING TKO. PATIENT ON SCHEDULED ZYPREXA AND ALSO HAS PRN ATIVAN AND HALDOL IF NEEDED. PATIENT RECEIVING PRN FENTANYL FOR COMPLAINTS OF BACK PAIN. PATIENT REQUESTING FREQUENT REPOSITIONS. MICONAZORB ORDERED FOR REDDENED SKIN FOLDS. ASPERCREME ORDERED FOR BACK PAIN. BLOOD SUGARS RANGED FROM 200S TO 300S. BED LOW, CALL LIGHT IN REACH. REPORT HAS BEEN GIVEN TO ASSUMING MANAGER CLINICAL PHARMACY NURSE.
--- NOTE | 2021-04-26 20:00 | NUR ---
ASSUMED CARE OF PT AT 1915. REPORT RECEIVED. PT PRESENTS IN BED. O2 ON AT 6L/M PER HIGH FLOW NASAL CANNULA. PT EXTREMELY [place]. IS ABLE TO HEAR AND UNDERSTAND THIS RN. PT VERBALLY RESPONSIVE AND IS ABLE TO MAKE HER NEEDS KNOWN. HAVE DECIDED TO REMOVE TRACE VEST, AND WRIST RESTRAINTS AND MONITOR PT FOR NEED TO REPLACE IF NEEDED. PT IS ON REMOTE CAMERA FOR SAFETY. WILL REVIEW CHART AND PLAN OF CARE FOR THIS PT.
--- NOTE | 2021-04-26 22:09 | NUR ---
HAVE TRIALED PT WITH SINGLE ICE CHIP TO SEE HOW PT IS ABLE TO MANAGE. PT HAS DONE WELL AT THIS TIME. GOOD ORAL CARE HAS BEEN DONE WITH MOISTURIZER AND CHAPSTICK FOR HER LIPS. HAS BEEN MEDICATED TWICE WITH 25 MCG FENTANYL FOR COMPLAINT OF BACK PAIN. PT MOTIONS WITH HER HANDS/FINGERS 10/10 PAIN. RESTRAINTS HAVE BEEN OFF SINCE 1999 AND PT HAS NOT MADE ANY ATTEMPTS TO GET OUT OF BED OR PULL AT LINES.
--- NOTE | 2021-04-27 02:29 | NUR ---
HAVE ALLOWED PT A FEW SIPS AND CHIPS. PT DEMONSTRATES BEING ABLE TO TAKE THESE WITHOUT COUGH OR ISSUES. WILL BE CONSERVATIVE UNTIL SWALLOW EVAL CAN BE DONE. PT REQUESTS TO BE SAT QUITE FORWARD TO ASSIST HER WITH COUGH. PLACE BED IN CHAIR POSITION AND TILTED BED FORWARD. PT ABLE TO GENERATE BETTER MORE AFFECTIVE COUGH. SHE IS ABLE TO USE YAUNKEUR TO SELF CLEAR SECRETIONS. ASPIRCREAM APPLIED TO PT'S BACK. DID PROVIDE BACK MASSAGE WHICH PT STATES HAS HELPED. PT CONTINUES WITH A SOFT RASPY VOICE. IS ABLE TO MAKE NEEDS KNOWN. WILL CONTINUE TO MONITOR PT.
[2021-04-27 04:44] LABS: BASOPHILS ABSOLUTE AUTO 0.01 K/mm3 (0.00-0.23); BASOPHILS PERCENT AUTO 0 % (0-2); EOSINOPHILS ABSOLUTE AUTO 0.01 K/mm3 (0.00-0.68); EOSINOPHILS PERCENT AUTO 0 % (0-6); Hematocrit 36.8 % (33.0-51.0); Hemoglobin 11.9 g/dL (11.5-16.0); IMMATURE GRAN ABSOLUTE AUTO 0.05 K/mm3 (0.00-0.10); IMMATURE GRAN PERCENT AUTO 1 % (0-1); LYMPHOCYTES ABSOLUTE AUTO 1.23 K/mm3 (0.84-5.20); LYMPHOCYTES PERCENT AUTO 13 % (21-46); MONOCYTES ABSOLUTE AUTO 0.82 K/mm3 (0.16-1.47); MONOCYTES PERCENT AUTO 9 % (4-13); Mean Corpuscular HGB 29.2 pg (26.0-34.0); Mean Corpuscular HGB Conc 32.3 g/dL (31.5-36.5); Mean Corpuscular Volume 90 fL (80-100); NEUTROPHILS ABSOLUTE AUTO 7.38 K/mm3 (1.96-9.15); NEUTROPHILS PERCENT AUTO 78 % (41-73); Platelet Count 315 K/mm3 (150-400); RDW Coefficient Variation 12.2 % (11.7-14.2); Red Blood Cell Count 4.08 M/mm3 (3.80-5.20)
[2021-04-27 05:00] LABS: Albumin, Blood 2.6 g/dL (3.4-5.0); Anion Gap 4 mmol/L (6-16); Blood Urea Nitrogen 27 mg/dL (8-24); Bun/Creatinine Ratio 53.5 (12.0-20.0); CO2, Blood 35 mmol/L (21-32); Calcium, Blood 8.5 mg/dL (8.5-10.1); Chloride, Blood 107 mmol/L (98-108); Creatinine, Blood 0.51 mg/dL (0.40-1.00); Glomerular Filtration Rate >60 (60-); Glucose, Blood 163 mg/dL (70-99); Sodium, Blood 146 mmol/L (136-145)
--- NOTE | 2021-04-27 06:49 | NUR ---
PT TOLERATES TURNS IN BED. HAS DONE WELL WITH ICE CHIPS. IS ABLE TO MAKE HER NEEDS KNOWN. NO BM THIS NIGHT. 300 ML URINE OUT FOR THE NIGHT. 4 L/M PER NASAL CANNULA KEEPS PT > 90 PERCENT. PT HAS RESPONDED WELL TO ASPIRCREAM AND TO BACK RUB. WILL CONTINUE TO MONITOR PT, AND WILL REPORT OFF TO ONCOMING RN.
--- NOTE | 2021-04-27 08:09 | NUR ---
ASSUMING PT CARE: PT EASILY AWAKENS WHEN STAFF ENTERS ROOM. VERY SOFT, HUSHED VOICE. SLOW TO RESPOND, @ TIMES DOES NOT RESPOND, WILL ONLY MAKE EYE CONTACT. UNABLE TO DETERMINE WHETHER THIS IS D/T PT's SAMISH OR CONFUSION OR PT IS NONPARTICIPATORY. APPEARS AGITATED @ TIMES, WAVING STAFF AWAY WHEN ASKED ASSESSMENT QUESTIONS. LS CLEAR, PT ABLE TO COUGH & DEEP BREATHE & UTILIZE YANKAUER FOR SECRETIONS.PT DENIES ANY NEEDS AT THIS TIME & IS ABLE TO USE CALL LIGHT APPROPRIATELY. WILL CONTINUE TO MONITOR & REPORT APPROPRIATE.
--- NOTE | 2021-04-27 08:45 | NUR ---
UPDATE: DR LANDIN ROUNDING. DR LANDIN @ BEDSIDE FOR AM ROUNDS. PT UNABLE TO DECIDE ON WHETHER SHE WANTS TO BE FULL CODE OR DNR. SHE EXPRESSED WISHES FOR DNR YESTERDAY & SHORTLY THEREAFTER CHANGED HER MIND. IN SPEAKING W/ DR LANDIN, PT STS SHE DOES NOT WANT TO BE INTUBATED AGAIN. @ THIS TIME PT IS SOMEWHAT CONFUSED, SHE BELIEVES THE MONTH IS "TUESDAY" & BELIEVES SHE IS @ [facility]. PT WILL REMAIN FULL CODE FOR NOW UNTIL SHE IS NO LONGER CONFUSED & STATUS CAN BE DISCUSSED W/ FAMILY.
--- NOTE | 2021-04-27 09:21 | NUR ---
UPDATE: PT MUCH MORE AWAKE, ABLE TO CALL OUT NEEDS & REQUEST REPOSITIONING & PAIN MEDS. AGITATED, BUT ABLE TO BE CONSOLED AFTER REPOSITIONED & MADE COMFORTABLE IN THE BED.
--- NOTE | 2021-04-27 09:38 | NUR ---
UPDATE: PROVIDER ROUNDS & FAMILY UPDATE DR BURT @ BEDSIDE FOR AM ROUNDS. PT ABLE TO SPEAK IN 3-4 WORD SENTENCES & RELAY HER COMPLAINTS OF NOT SLEEPING WELL & CHRONIC BACK PAIN. PLAN FOR SPEECH EVAL TODAY BEFORE ADVANCING TO LIQUIDS & PO INTAKE. PT TOLERATING ICE CHIPS WELL. PT's SON, BEATA, UPDATED ON PT PROGRESSION. OPPORTUNITY PROVIDED FOR QUESTIONS, ALL QUESTIONS ANSWERED.
--- NOTE | 2021-04-27 11:58 | NUR ---
UPDATE: PT COMPLETED SWALLOW EVAL, ORDERS PLACED FOR PUREE DIET W/ TRAY NOW. PT CHANGED FROM 3L/min HF NC to 3L/min NC & IS TOLERATING WELL, SPO2 >95%. PT CONTINUES TO HAVE MOIST PRODUCTIVE COUGH W/ THICK [place]ACH SPUTUM. SPEAKING IN 2-3 WORD SENTENCES. MUCH MORE APPROPRIATE IN FOLLOWING COMMANDS, NO LONGER AGITATED. TEARFUL @ TIMES, EXPRESSES HER SADNESS IN BEING HOSPITALIZED & SHE IS ANXIOUS TO BE HOME. EASILY CONSOLED. DAUGHTER UPDATED VIA TELEPHONE.
--- NOTE | 2021-04-27 16:35 | NUR ---
UPDATED HOSPITALIST DR. LANDIN ON PT PROGRESSION. VERBAL ORDERS GIVEN TO CHANGE PT STATUS TO MEDICAL W/ TELE. COOK COLD MEAT AWARE
--- NOTE | 2021-04-27 18:52 | NUR ---
SHIFT SUMMARY: PT RESTING IN BED W/ EYES CLOSED. MENTATION & MOOD PROGRESSED POSITIVELY T/O THE DAY. PT APPEARS MUCH MORE CALM & HAPPY, OFTEN EXPRESSING HOW THANKFUL SHE IS FOR THE CARE SHE RECEIVED. DAUGHTER DROPPED OFF NEW HEARING AID BATTERIES & PT IS MUCH MORE INTERACTIVE & APPEARS LESS CONFUSED. NO SOB OR DYSPNEA NOTED. SPO2 98% ON 3L/min VIA NC. PT ABLE TO HELP W/ TURNS W/OUT DIFF. STATUS CHANGED TO MED W/ TELE. FULL BED BATH THIS SHIFT. PLAN TO TRANSFER PT OUT ONCE AVAILABLE.
--- NOTE | 2021-04-27 21:01 | NUR ---
ASSUMED CARE PATIENT IS ALERT AND ORIENTED X4. BARROW AND SLOW TO RESPOND AT TIMES. FOLLOWS COMMANDS. 02 SATS >93% ON 2L VIA NC. THICK [place]/WHITE SECRETIONS, PATIENT USING ORAL SUCTION TO CLEAR SECRETIONS, STRONG COUGH. HR SB-SR 50s-60s. BP STABLE. 1 PERSON ASSIST WITH REPOSITIONING. MEDICATED PER EMAR FOR CHRONIC BACK PAIN. PATIENT CURRENTLY SLEEPING. CHECKED UNDER MEPILEX DRESSING FOR WOUNDS, REDNESS WITH BLANCHING. CALL LIGHT IN REACH, SEE SHIFT ASSESSMENT FOR MORE DETAIL.
--- NOTE | 2021-04-28 06:06 | NUR ---
SHIFT SUMMARY PATIENT ALERT AND ORIENTED X3-4, CONFUSED WHEN WOKEN UP. PATIENT BECAME MORE LETHARGIC THROUGH THE NIGHT BUT WOULD WAKE TO VERBAL STIMULI. 02 SATS 93% ON 4L VIA NC WHILE SLEEPING. BP STABLE. HR SB 40s-50s WITH PVCs. ROBLES DRAINING TO GRAVITY. Q2 HOUR REPOSITIONING, PATIENT ABLE TO TURN SELF, PATIENT WOULD REMOVE PILLOWS TO LAY FLAT AT TIMES. MEDICATED ONCE AT BEGINNING OF SHIFT FOR CHRONIC BACK PAIN. CALL LIGHT IN REACH.
[2021-04-28 06:24] LABS: Albumin, Blood 2.5 g/dL (3.4-5.0); Anion Gap 6 mmol/L (6-16); Blood Urea Nitrogen 20 mg/dL (8-24); Bun/Creatinine Ratio 34.7 (12.0-20.0); CO2, Blood 36 mmol/L (21-32); Calcium, Blood 8.7 mg/dL (8.5-10.1); Chloride, Blood 102 mmol/L (98-108); Creatinine, Blood 0.58 mg/dL (0.40-1.00); Glomerular Filtration Rate >60 (60-); Glucose, Blood 157 mg/dL (70-99); Phosphorus, Blood 2.9 mg/dL (2.5-4.9); Potassium, Blood 2.9 mmol/L (3.5-5.5); Sodium, Blood 144 mmol/L (136-145)
[2021-04-28 13:44] LABS: Albumin, Blood 2.7 g/dL (3.4-5.0); Anion Gap 6 mmol/L (6-16); Blood Urea Nitrogen 22 mg/dL (8-24); Bun/Creatinine Ratio 36.6 (12.0-20.0); CO2, Blood 31 mmol/L (21-32); Calcium, Blood 9.1 mg/dL (8.5-10.1); Chloride, Blood 100 mmol/L (98-108); Glomerular Filtration Rate >60 (60-); Glucose, Blood 378 mg/dL (70-99); Phosphorus, Blood 3.1 mg/dL (2.5-4.9); Potassium, Blood 4.7 mmol/L (3.5-5.5); Sodium, Blood 137 mmol/L (136-145)
--- NOTE | 2021-04-28 18:03 | NUR ---
SUMMARY PT IS A/O X4 TODAY. SHE IS VERY [place] MAKING IT DIFFICULT TO COMMUNICATE AT TIMES. DOES WELL WITH WRITING ON PAPER. UP TO CHAIR WITH FWW AND 1 PERSON MINIMAL ASSIST. PT HAS BEEN TOLERATING DIET WELL. PT HAS PRODUCTIVE COUGH WITH BEACH SPUTUM. PT CAN USE YOKOUR TO SUCTION HER OWN SPUTUM. CBG HAS BEEN HIGH TODAY. NEW INSULIN ORDERS STARTED. NO ACUTE CHANGES TODAY. PT IS MEDICAL STATUS AWAITING BED ON MEDICAL FLOOR.
--- NOTE | 2021-04-28 20:43 | NUR ---
ASSUMED CARE PATIENT IS ALERT AND ORIENTED X4, COOPERATIVE WITH CARE. 02 SATS 98% ON 4L VIA NC. STRONG COUGH WITH MODERATE SPUTUM PRODUCTION. PATIENT USING ORAL SUCTION TO HELP CLEAR SECRETIONS. HR SR CURRENTLY IN THE 80s WITH PVCs, WAS A.FIB EARLIER. BP STABLE. DENIES CP/PRESSURE. ROBLES DRANING TO GRAVITY, CURRENTLY TRYING TO BLADDER TRAIN. CATHETER CARE DONE. REDNESS ON COCCYX, REMAINS BLANCHABLE, MEPILEX DRESSING CHANGED. GROIN AREA CLEANED AND POWDER APPLIED TO REDNESS PER EMAR. ORAL CARE DONE.MEDICATED PER EMAR FOR CHRONIC BACK PAIN. PATIENT ABLE TO REPOSITION SELF, VERBAL CUES AND REMINDERS GIVEN. CALL LIGHT IN REACH.
[2021-04-29 04:20] LABS: BASOPHILS ABSOLUTE AUTO 0.01 K/mm3 (0.00-0.23); BASOPHILS PERCENT AUTO 0 % (0-2); EOSINOPHILS ABSOLUTE AUTO 0.17 K/mm3 (0.00-0.68); EOSINOPHILS PERCENT AUTO 2 % (0-6); Hematocrit 39.2 % (33.0-51.0); Hemoglobin 12.6 g/dL (11.5-16.0); IMMATURE GRAN ABSOLUTE AUTO 0.06 K/mm3 (0.00-0.10); IMMATURE GRAN PERCENT AUTO 1 % (0-1); LYMPHOCYTES PERCENT AUTO 13 % (21-46); MONOCYTES ABSOLUTE AUTO 0.64 K/mm3 (0.16-1.47); MONOCYTES PERCENT AUTO 7 % (4-13); Mean Corpuscular HGB 29.2 pg (26.0-34.0); Mean Corpuscular HGB Conc 32.1 g/dL (31.5-36.5); Mean Corpuscular Volume 91 fL (80-100); Mean Platelet Volume 9.8 fL (9.1-12.4); NEUTROPHILS ABSOLUTE AUTO 7.24 K/mm3 (1.96-9.15); NEUTROPHILS PERCENT AUTO 78 % (41-73); Platelet Count 352 K/mm3 (150-400); RDW Coefficient Variation 12.1 % (11.7-14.2); RDW Standard Deviation 40.3 fL (35.1-46.3); Red Blood Cell Count 4.32 M/mm3 (3.80-5.20); White Blood Cell Count 9.32 K/mm3 (4.00-11.30)
[2021-04-29 04:39] LABS: Albumin, Blood 2.5 g/dL (3.4-5.0); Anion Gap 5 mmol/L (6-16); Blood Urea Nitrogen 16 mg/dL (8-24); Bun/Creatinine Ratio 28.1 (12.0-20.0); CO2, Blood 33 mmol/L (21-32); Calcium, Blood 8.9 mg/dL (8.5-10.1); Chloride, Blood 101 mmol/L (98-108); Creatinine, Blood 0.57 mg/dL (0.40-1.00); Glomerular Filtration Rate >60 (60-); Glucose, Blood 229 mg/dL (70-99); Phosphorus, Blood 3.2 mg/dL (2.5-4.9); Potassium, Blood 3.6 mmol/L (3.5-5.5); Sodium, Blood 139 mmol/L (136-145)
--- NOTE | 2021-04-29 06:20 | NUR ---
SHIFT SUMMARY PATIENT SLEPT MOST THE NIGHT. A&OX4. 02 SATS 94% ON 4L NC. HR SR/A.FIB. @70s. BP STABLE. MEDICATED ONCE FOR CHRONIC BACK PAIN THIS SHIFT. SOME BLADDER TRAINING DONE, PATIENT ABLE TO STATE WHEN HER BLADDER WAS FEELING FULL. PATIENT INDEPENDENT WITH REPOSITIONING. POWERGLIDE DRESSING CHANGED. CALL LIGHT IN REACH.
--- NOTE | 2021-04-29 07:50 | NUR ---
ASSUMPTION OF CARE RECEIVED REPORT FROM REGINE JEFF, ASSUMED CARE OF PATIENT. PATIENT LAYING ON RIGHT SIDE, EYES CLOSED, EASILY AWOKE. VITALS STABLE. WILL REVIEW ORDERS AND TREAT PRESCRIBED.
--- NOTE | 2021-04-29 13:30 | NUR ---
IV REMOVAL A 20G IV LOCATED IN RIGHT UPPER ARM WAS NOTED ORIGINALLY UPON INITIAL ASSESSMENT. ATTEMPTED TO FLUSH IV FOR AM MEDICATIONS BUT IT WAS PAINFUL FOR PATIENT. NO BLOOD RETURN NOTED. REMOVED IV AT THIS TIME WITH CATHETER INTACT.
--- NOTE | 2021-04-29 17:56 | NUR ---
SHIFT SUMMARY PATIENT ALERT AND ORIENTED THROUGH SHIFT. STABLE VITAL SIGNS. REMOVED 02 AT START OF SHIFT AND PLACED ON RA. MAINTAINED SATS THROUGH DAY. FLUTTER VALVE GIVEN AND EDUCATED REGARDING USE. LASIX DOSE INCREASED. ATTEMPTED TO BLADDER TRAIN, ROBLES CLAMPED FOR AN HOUR EACH TIME. PATIENT DID NOT FEEL THE URGE TO VOID, ROBLES WOULD DRAIN 100-200ML WHEN UNCLAMPED. MOM GIVEN, AND BOWEL MOVEMENT NOTED. PATIENT WORKED WITH PHYSICAL THERAPY, UP TO CHAIR WITH EVERY MEAL. ST ADVANCED TO REGULAR ADA DIET FOR DINNER TRAY, PATIENT TOLERATED WELL. CBG ABOVE 300, TREATED PER S/S AND LONG ACTING DOSE INCREASED. WILL MONITOR AND REPORT TO ONCOMING RN.
[2021-04-30 05:26] LABS: BASOPHILS ABSOLUTE AUTO 0.01 K/mm3 (0.00-0.23); BASOPHILS PERCENT AUTO 0 % (0-2); EOSINOPHILS ABSOLUTE AUTO 0.14 K/mm3 (0.00-0.68); EOSINOPHILS PERCENT AUTO 2 % (0-6); Hematocrit 40.9 % (33.0-51.0); Hemoglobin 13.4 g/dL (11.5-16.0); IMMATURE GRAN ABSOLUTE AUTO 0.04 K/mm3 (0.00-0.10); IMMATURE GRAN PERCENT AUTO 1 % (0-1); LYMPHOCYTES ABSOLUTE AUTO 1.33 K/mm3 (0.84-5.20); LYMPHOCYTES PERCENT AUTO 16 % (21-46); MONOCYTES ABSOLUTE AUTO 0.61 K/mm3 (0.16-1.47); MONOCYTES PERCENT AUTO 7 % (4-13); Mean Corpuscular HGB 29.2 pg (26.0-34.0); Mean Corpuscular HGB Conc 32.8 g/dL (31.5-36.5); Mean Corpuscular Volume 89 fL (80-100); Mean Platelet Volume 9.9 fL (9.1-12.4); NEUTROPHILS PERCENT AUTO 75 % (41-73); Platelet Count 369 K/mm3 (150-400); RDW Coefficient Variation 12.1 % (11.7-14.2); RDW Standard Deviation 39.2 fL (35.1-46.3); Red Blood Cell Count 4.59 M/mm3 (3.80-5.20); White Blood Cell Count 8.43 K/mm3 (4.00-11.30)
--- NOTE | 2021-04-30 05:52 | NUR ---
TRANSFER TO 358 PT TRANSFERED TO 358 AT 0544 VIA ICU BED AND TRANSFERED WITH BELONGINGS. PT IS ALERT/ORIENTED X3-4, IS VERY HARD OF HEARING WHICH CAN INFLUENCE ORIENTATION ANSWERS. VSS. PT AMBULATES WITH WALKER, GAIT BELT, AND ONE PERSON ASSIST. ROBLES IN PLACE AND DRAINING TO GRAVITY. SEE SHIFT ASSESSMENT FOR FULL ASSESSMENT. REPORT GIVEN TO MEDICAL FLOOR NURSE.
[2021-04-30 06:11] LABS: Albumin, Blood 2.6 g/dL (3.4-5.0); Anion Gap 7 mmol/L (6-16); Blood Urea Nitrogen 13 mg/dL (8-24); Bun/Creatinine Ratio 25.5 (12.0-20.0); CO2, Blood 31 mmol/L (21-32); Calcium, Blood 9.2 mg/dL (8.5-10.1); Chloride, Blood 101 mmol/L (98-108); Creatinine, Blood 0.51 mg/dL (0.40-1.00); Glomerular Filtration Rate >60 (60-); Glucose, Blood 167 mg/dL (70-99); Phosphorus, Blood 3.1 mg/dL (2.5-4.9); Sodium, Blood 139 mmol/L (136-145)
[2021-04-30] MEDS ORDERED: LOSA25 PO (11:09)
[2021-04-30] MEDS ORDERED: POTCHL20ER PO (11:11)
[2021-04-30] MEDS ORDERED: FURO40 PO (11:11)
[2021-04-30] MEDS ORDERED: CIPR750 PO (11:12)
[2021-04-30] MEDS ORDERED: PRED5 PO (11:12)
--- NOTE | 2021-04-30 13:54 | NUR ---
SHIFT SUMMARY PATIENT IS ALERT AND ORIENTED X3. PATIENT IS HARD OF HEARING. PATIENT IS A ONE PERSON ASSIST TO BEDSIDE COMMODE. PATIENT HAS HAD NO ACUTE EVENTS THIS SHIFT. VITAL SIGNS REVIEWED. PATIENT IS BEING WHEELED OUT BY RIDGE FIGUEROA ACCOMPANIED BY DAUGHTER TO PERSONAL VEHICLE.
--- NOTE | 2021-04-30 15:52 | NUR ---
Per Dr. Nettles discharge appropriate. Patient does not oppose discharge. Patient discharged home to residence. Daughter Yris Ferrer notified of discharge and will provide transportation to residence. Paulette Crump contacted on resumption of Home Health services. Date of discharge: 04/30/2021 Date of admission: 04/22/2021 Provisional diagnosis at time of admission: Acute respiratory failure with hypoxia Final Diagnosis at time of discharge: Acute respiratory failure with hypoxia Location: [address] [place] [address] Transportation provided by: Daughter Yris [phone] DME Ordered: None needed (Home Oxygen evaluation: room air) Follow-ups needed: [facility] will contact patient to schedule hospital follow-up visit. Reinforced need to attend follow-up with option of telehealth appointment. Confirmed numbers: Patient [phone] Yris [phone] Provider/PCP: Dr. Theron Herring When: WITHIN 1 WEEK Specialty: RENAL FUNCTION PANEL AND MAGNESIUM When: 2 DAYS PRIOR TO HOSPITAL F/U WITH DR. HERRING Comment: Explained to patient to contact PCP if any questions regarding medication management, social service needs, and if condition worsens go to Urgent Care/ER. No barriers to discharge. Patient has a strong support network.
== END 2021-04-30 14:47 | disposition home health service (06) | DRG 871 ==
LOC: ER 15:01 → ICUW 22:55 → ICUE 22:55 → MEDS 04-30 06:07
PROVIDERS: Family Medicine; Hospitalist; Internal Medicine Critical Care Medicine; Physician Assistant; ADMIT Internal Medicine
PROC: 5A1945Z Respiratory Ventilation, 24-96 Consecutive Hours (ICD-10-PCS; principal; 2021-04-22)
PROC: 8E0ZXY6 Isolation (ICD-10-PCS; 2021-04-22)
PROC: 3E033XZ Introduction of Vasopressor into Peripheral Vein, Percutaneous Approach (ICD-10-PCS; 2021-04-22)
PROC: 0BH18EZ Insertion of Endotracheal Airway into Trachea, Via Natural or Artificial Opening Endoscopic (ICD-10-PCS; 2021-04-22)
PROC: 3E03329 Introduction of Other Anti-infective into Peripheral Vein, Percutaneous Approach (ICD-10-PCS; 2021-04-23)
PROC: XW033E5 Introduction of Remdesivir Anti-infective into Peripheral Vein, Percutaneous Approach, New Technology Group 5 (ICD-10-PCS; 2021-04-24)
PROC: 3E0333Z Introduction of Anti-inflammatory into Peripheral Vein, Percutaneous Approach (ICD-10-PCS; 2021-04-24)
PROC: XW0DXM6 Introduction of Baricitinib into Mouth and Pharynx, External Approach, New Technology Group 6 (ICD-10-PCS; 2021-04-26)
DX: A41.89 Other specified sepsis (principal); U07.1 COVID-19; J96.01 Acute respiratory failure with hypoxia; J15.1 Pneumonia due to Pseudomonas; R65.21 Severe sepsis with septic shock; J12.82 Pneumonia due to coronavirus disease 2019; I24.8 Other forms of acute ischemic heart disease; D84.9 Immunodeficiency, unspecified; J44.0 Chronic obstructive pulmonary disease with (acute) lower respiratory infection; J40 Bronchitis, not specified as acute or chronic; E11.9 Type 2 diabetes mellitus without complications; I10 Essential (primary) hypertension; E78.5 Hyperlipidemia, unspecified; F32.A Depression, unspecified; Z79.82 Long term (current) use of aspirin; Z79.899 Other long term (current) drug therapy; Z90.49 Acquired absence of other specified parts of digestive tract; Z98.890 Other specified postprocedural states; Z88.8 Allergy status to other drugs, medicaments and biological substances; Z85.3 Personal history of malignant neoplasm of breast; Z90.10 Acquired absence of unspecified breast and nipple; Z98.49 Cataract extraction status, unspecified eye; M06.9 Rheumatoid arthritis, unspecified; E87.6 Hypokalemia; E83.39 Other disorders of phosphorus metabolism
CPT/HCPCS: 31500; 36415; 36600; 51702; 71045; 71046; 71260; 80048; 80053; 80069; 81001; 82550; 82803; 82947; 83036; 83735; 83880; 84145; 84484; 85025; 86140; 87040; 87070; 87077; 87186; 87205; 92526; 92610; 93005; 93010; 93306; 94002; 94003; 94668; 96365-59; 96375-59; 97110; 97162; 97166; 97530; 97535; 99291-25; A9270; C1751; C9399; J0248; J0330; J1100; J1630; J1650; J1815; J1940; J2060; J2543; J2704; J3010; J3370; J3475; J3480; J3486; J7030; J7050; J7060; Q9967

== ENCOUNTER 2021-06-06 16:14 | Inpatient (IN) | payer MEDICARE, BC ==
[~2021-06-06] VITALS: Ht 162.6 cm; Wt 81.1 kg
[~2021-06-06 16:14] MED LIST changes: +CIPR750 PO; +FURO40 PO; +LOSA25 PO; +POTCHL20ER PO
[2021-06-06 16:39] LABS: BASOPHILS ABSOLUTE AUTO 0.03 K/mm3 (0.00-0.23); BASOPHILS PERCENT AUTO 0 % (0-2); EOSINOPHILS ABSOLUTE AUTO 0.11 K/mm3 (0.00-0.68); EOSINOPHILS PERCENT AUTO 1 % (0-6); Hematocrit 36.3 % (33.0-51.0); IMMATURE GRAN ABSOLUTE AUTO 0.09 K/mm3 (0.00-0.10); IMMATURE GRAN PERCENT AUTO 1 % (0-1); LYMPHOCYTES ABSOLUTE AUTO 2.54 K/mm3 (0.84-5.20); LYMPHOCYTES PERCENT AUTO 20 % (21-46); MONOCYTES ABSOLUTE AUTO 0.84 K/mm3 (0.16-1.47); MONOCYTES PERCENT AUTO 7 % (4-13); Mean Corpuscular HGB 28.7 pg (26.0-34.0); Mean Corpuscular HGB Conc 33.1 g/dL (31.5-36.5); Mean Corpuscular Volume 87 fL (80-100); Mean Platelet Volume 9.2 fL (9.1-12.4); NEUTROPHILS PERCENT AUTO 72 % (41-73); Platelet Count 380 K/mm3 (150-400); RDW Coefficient Variation 13.5 % (11.7-14.2); RDW Standard Deviation 42.9 fL (35.1-46.3); Red Blood Cell Count 4.18 M/mm3 (3.80-5.20); White Blood Cell Count 12.91 K/mm3 (4.00-11.30)
[2021-06-06 16:56] LABS: Alanine Aminotransfer (ALT/SGP 23 U/L (12-78); Albumin, Blood 3.4 g/dL (3.4-5.0); Albumin/Globulin Ratio 0.9 (0.8-1.8); Alk Phos 151 U/L (50-136); Anion Gap 9 mmol/L (6-16); Aspartate Aminotrans (AST/SGOT 20 U/L (12-37); Bilirubin, Total 0.4 mg/dL (0.1-1.0); Blood Urea Nitrogen 16 mg/dL (8-24); Bun/Creatinine Ratio 39.7 (12.0-20.0); CO2, Blood 24 mmol/L (21-32); Calcium, Blood 9.6 mg/dL (8.5-10.1); Chloride, Blood 102 mmol/L (98-108); Globulin, Blood 3.9 g/dL (2.2-4.0); Glomerular Filtration Rate >60 (60-); Glucose, Blood 210 mg/dL (70-99); Potassium, Blood 3.8 mmol/L (3.5-5.5); Sodium, Blood 135 mmol/L (136-145); Total Protein, Blood 7.3 g/dL (6.4-8.2)
[2021-06-06 17:17] LABS: Influenza A, PCR NEGATIVE (NEGATIVE); Influenza B, PCR NEGATIVE (NEGATIVE); Resp Syncytial Virus, PCR NEGATIVE (NEGATIVE)
[2021-06-06 17:20] LABS: SARS-Cov-2 (COVID-19) PCR, MMC POSITIVE (NEGATIVE)
--- NOTE | 2021-06-06 21:12 | NUR ---
PT HERE VIA GURNEY FROM ER. PT IS ALERT AND ORIENTED X3. DAUGHTER AT BEDSIDE. PT REQUESTING USE OF BSC - PT AMBULATED FROM ER GURNEY TO BSC - CLEAR YELLOW URINE OUT. PT AMBULATES TO BED. PT HAS BILATERIAL HEARING AIDS IN, GLASSES ON. PT DENIES ANY PAIN, EXCEPT A HEADACHE - WILL MEDICATE WITH TYLENOL PER ORDERS. PT DENIES ANY CHEST PAIN, NAUSEA, OR N/T. PT IS ON 2L OXYGEN VIA NC - VSS. PT HAS CLEAR LS UPPER LOBES, BILATERAL RHONCHI TO LUNG BASES. PT IN ENHANCED ISOLATION FOR COVID. PT REPORTS RECEIVING 2 MODERNA VACCINES - SEE ADMIT INFO. PT HAS A 20G TO LHAND CURRENT INFUSING NS AT 100 HOUR. IV TO R AC SL'D - FLUSHED. TROPONIN ELEVATED IN ER - PT DENIES ANY DISCOMFORT, NO CHEST PAIN, SHOULDER PAIN, NAUSEA, OR JAW PAIN. CALL LIGHT WITHIN REACH. BED IN LOW POSITION. FLUIDS AT BEDSIDE.
[2021-06-06] MEDS ORDERED: Ventolin5 MG/1 ML INH (21:33)
--- NOTE | 2021-06-06 21:58 | NUR ---
PT CAME WITH NORMAL SALINE INFUSING AT 100 CC HOUR. CALLED [facility], PHARMACIST - CONFIRMED BOLUS TO RUN AT 500CC HOUR UNTIL 1800 CC INFUSED. CHANGED IV BOLUS NORMAL SALINE TO BOLUS DOSE.
--- NOTE | 2021-06-07 03:40 | NUR ---
CALLED [facility] PHARMACIST WITH UPDATE PER ORDER, NORMAL SALINE 75 HOUR X1 LITER - WILL UPDATE ORDER SHORTLY. WILL REPORT THIS OFF TO AM SHIFT ALSO.
[2021-06-07 05:12] LABS: BASOPHILS ABSOLUTE AUTO 0.02 K/mm3 (0.00-0.23); BASOPHILS PERCENT AUTO 0 % (0-2); EOSINOPHILS ABSOLUTE AUTO 0.06 K/mm3 (0.00-0.68); EOSINOPHILS PERCENT AUTO 1 % (0-6); Hematocrit 30.5 % (33.0-51.0); Hemoglobin 9.7 g/dL (11.5-16.0); IMMATURE GRAN ABSOLUTE AUTO 0.03 K/mm3 (0.00-0.10); IMMATURE GRAN PERCENT AUTO 1 % (0-1); LYMPHOCYTES PERCENT AUTO 16 % (21-46); MONOCYTES ABSOLUTE AUTO 0.76 K/mm3 (0.16-1.47); MONOCYTES PERCENT AUTO 12 % (4-13); Mean Corpuscular HGB Conc 31.8 g/dL (31.5-36.5); Mean Corpuscular Volume 88 fL (80-100); Mean Platelet Volume 9.2 fL (9.1-12.4); NEUTROPHILS ABSOLUTE AUTO 4.31 K/mm3 (1.96-9.15); NEUTROPHILS PERCENT AUTO 70 % (41-73); Platelet Count 273 K/mm3 (150-400); RDW Coefficient Variation 13.7 % (11.7-14.2); RDW Standard Deviation 43.9 fL (35.1-46.3); Red Blood Cell Count 3.47 M/mm3 (3.80-5.20); White Blood Cell Count 6.18 K/mm3 (4.00-11.30)
[2021-06-07 05:40] LABS: Anion Gap 6 mmol/L (6-16); Blood Urea Nitrogen 8 mg/dL (8-24); Bun/Creatinine Ratio 25.7 (12.0-20.0); CO2, Blood 25 mmol/L (21-32); Calcium, Blood 8.4 mg/dL (8.5-10.1); Chloride, Blood 108 mmol/L (98-108); Creatinine, Blood 0.31 mg/dL (0.40-1.00); Glomerular Filtration Rate >60 (60-); Glucose, Blood 156 mg/dL (70-99); Potassium, Blood 3.5 mmol/L (3.5-5.5); Sodium, Blood 139 mmol/L (136-145)
--- NOTE | 2021-06-07 07:14 | NUR ---
SHIFT SUMMARY - NO ACUTE CHANGES THROUGHOUT THIS SHIFT. TROPONIN RESULTS CRITICAL - CN NOTIFIED DR. PAEZ - PT DENIED CHEST PAIN THROUGHOUT THE NIGHT. PT'S ONLY COMPLAINT WAS HEADACHE PAIN, WHICH SHE REPORTS HAS BEEN ONGOING FOR APPX 2 WEEKS. PT SLEPT THROUGHOUT MOST OF THE NIGHT. PT ON 2L OXYGEN VIA NC - SATS WNL. REPORT GIVEN TO AM SHIFT. CALL LIGHT WITHIN REACH. BED IN LOW POSITION. FLUIDS AT BEDSIDE. PT UP TO BSC THIS AM WITH RIDGE.
[2021-06-07 14:08] LABS: Adenovirus Not Detected (NOT DETECT); Bordetella pertussis Not Detected (NOT DETECT); Chlamydophila pneumoniae Not Detected (NOT DETECT); Coronavirus 229E Not Detected (NOT DETECT); Coronavirus HKU1 Not Detected (NOT DETECT); Coronavirus NL63 Not Detected (NOT DETECT); Coronavirus OC43 Not Detected (NOT DETECT); Human Metapneumovirus Not Detected (NOT DETECT); Human Rhinovirus/Enterovirus Not Detected (NOT DETECT); Influenza A/2009-H1 Not Detected (NOT DETECT); Influenza A/H1 Not Detected (NOT DETECT); Influenza A/H3 Not Detected (NOT DETECT); Influenza B Not Detected (NOT DETECT); Mycoplasma pneumoniae Not Detected (NOT DETECT); Parainfluenza Virus 1 Not Detected (NOT DETECT); Parainfluenza Virus 2 Not Detected (NOT DETECT); Parainfluenza Virus 3 Not Detected (NOT DETECT); Parainfluenza Virus 4 Not Detected (NOT DETECT); Respiratory Syncytial Virus Not Detected (NOT DETECT); SARS-Cov-2 (COVID-19), BioFire Detected (NOT DETECT)
--- NOTE | 2021-06-07 18:26 | NUR ---
SHIFT SUMMARY: NO ACUTE EVENTS. STATED SHE FEELS BETTER TODAY. STILL ON O2 @ 2 L/MIN NC BUT SATS ARE > 95% SO CAN PROBABLY BE TITRATED DOWN. C/O HEADACHE, TYLENOL GIVEN AND WAS EFFECTIVE. EDUCATED ABOUT PROVIDING SPUTUM SPECIMEN, BUT HAS BEEN UNABLE TO PRODUCE. GETTING UP TO BSC WITH SBA. HAD VISIT FROM HER DAUGHTER. DENIED N/V, TOLERATING PO INTAKE.
--- NOTE | 2021-06-08 02:26 | NUR ---
NIB INSPECTOR SUMMARY PATIENT HAD A FAIR SHIFT, SHE IS ALERT AND ORIENTED. SHE WAS VERY ANXIOUS AND SOB, ON CHECKING HER OXGEN LEVEL IT WAS 93-94%. THE DRAFTER LANDSCAPE INCREASED THE OXYGEN LEVEL TO 3-4L, AND CALLED THE RESPIRATORY THERAPIST. THE ONCALL PHYSICIAN WAS INFORMED FOR PT TO GET AN ANXIETY MEDICATION. THE WAS PRESCIBED AND WAS ADMINISTERED TO THE PATIENT. SHE ALSO GOT BREATHING TREATMENT THIS HELPED CALM HER DOWN. HER VITALS WERE CHECKED AND RECORDED. WILLCONTINUE TO MONITOR HER.
[2021-06-08 05:30] LABS: BASOPHILS ABSOLUTE AUTO 0.03 K/mm3 (0.00-0.23); BASOPHILS PERCENT AUTO 0 % (0-2); EOSINOPHILS ABSOLUTE AUTO 0.04 K/mm3 (0.00-0.68); EOSINOPHILS PERCENT AUTO 0 % (0-6); Hematocrit 31.2 % (33.0-51.0); Hemoglobin 9.9 g/dL (11.5-16.0); IMMATURE GRAN ABSOLUTE AUTO 0.04 K/mm3 (0.00-0.10); IMMATURE GRAN PERCENT AUTO 0 % (0-1); LYMPHOCYTES ABSOLUTE AUTO 1.09 K/mm3 (0.84-5.20); LYMPHOCYTES PERCENT AUTO 12 % (21-46); MONOCYTES ABSOLUTE AUTO 0.68 K/mm3 (0.16-1.47); MONOCYTES PERCENT AUTO 8 % (4-13); Mean Corpuscular HGB 28.3 pg (26.0-34.0); Mean Corpuscular HGB Conc 31.7 g/dL (31.5-36.5); Mean Corpuscular Volume 89 fL (80-100); Mean Platelet Volume 9.4 fL (9.1-12.4); NEUTROPHILS ABSOLUTE AUTO 7.22 K/mm3 (1.96-9.15); NEUTROPHILS PERCENT AUTO 79 % (41-73); Platelet Count 296 K/mm3 (150-400); RDW Coefficient Variation 13.7 % (11.7-14.2); RDW Standard Deviation 44.4 fL (35.1-46.3)
[2021-06-08 06:01] LABS: Alanine Aminotransfer (ALT/SGP 30 U/L (12-78); Albumin, Blood 2.7 g/dL (3.4-5.0); Albumin/Globulin Ratio 0.8 (0.8-1.8); Alk Phos 184 U/L (50-136); Anion Gap 7 mmol/L (6-16); Aspartate Aminotrans (AST/SGOT 29 U/L (12-37); Bilirubin, Total 0.3 mg/dL (0.1-1.0); Blood Urea Nitrogen 8 mg/dL (8-24); Bun/Creatinine Ratio 24.2 (12.0-20.0); CO2, Blood 26 mmol/L (21-32); Calcium, Blood 9.1 mg/dL (8.5-10.1); Chloride, Blood 106 mmol/L (98-108); Creatinine, Blood 0.33 mg/dL (0.40-1.00); Globulin, Blood 3.2 g/dL (2.2-4.0); Glomerular Filtration Rate >60 (60-); Glucose, Blood 178 mg/dL (70-99); Magnesium, Blood 1.7 mg/dL (1.6-2.4); Phosphorus, Blood 3.4 mg/dL (2.5-4.9); Potassium, Blood 3.5 mmol/L (3.5-5.5); Sodium, Blood 139 mmol/L (136-145); Total Protein, Blood 5.9 g/dL (6.4-8.2)
--- NOTE | 2021-06-08 17:10 | NUR ---
PT AOX4 AND COOPERATIVE OF CARE. PT IS ON 2L NC AND WAS LABORING A BIT IN THE AM BREATHING. ADDED MEDICATION TO EMAR FOR DIURESING. PT HAS VOIDED WELL AND IS BREATHING WITH LESS WORK. PT HAS CALLED APPROPRIATELY. PT TREATED FOR ROMERO PER EMAR. NO DISTRESS NOTED AT THIS TIME WILL CONTINUE TO MONITOR.
--- NOTE | 2021-06-08 21:50 | NUR ---
VOICED HEADACHE, RECEIVED TYLENOL REQUESTED. O2 PER NC. RECEIVED TREATMENT EARLIER FROM THE RT. IV ANTIBIOTICS INFUSING - SEE MAR FOR DETAILS. CALL LIGHT IN REACH
--- NOTE | 2021-06-09 03:49 | NUR ---
MIDDLE SCHOOL TEACHER SUMMARY ALERT AND ORIENTED, HARD OF HEARING AT HS - "TOOK OUT HEARING AIDS" PER HER STATEMENT. IV ANTIBIOTICS ADMININSTERED AND TYLENOL FOR HEADACHE AT HS. MED EFFECTIVE, HAS BEEN RESTING QUIETLY WITH FEW INTERRUPTIONS SINCE. O2 AT 1-2 L/MIN, EFFECTIVE. BREATH SOUNDS CONGESTED PER AUSCULTATION. CALL LIGHT IN REACH
[2021-06-09 06:29] LABS: BASOPHILS ABSOLUTE AUTO 0.03 K/mm3 (0.00-0.23); BASOPHILS PERCENT AUTO 0 % (0-2); EOSINOPHILS ABSOLUTE AUTO 0.09 K/mm3 (0.00-0.68); EOSINOPHILS PERCENT AUTO 1 % (0-6); Hematocrit 29.2 % (33.0-51.0); Hemoglobin 9.6 g/dL (11.5-16.0); IMMATURE GRAN ABSOLUTE AUTO 0.03 K/mm3 (0.00-0.10); IMMATURE GRAN PERCENT AUTO 0 % (0-1); LYMPHOCYTES ABSOLUTE AUTO 0.91 K/mm3 (0.84-5.20); LYMPHOCYTES PERCENT AUTO 10 % (21-46); MONOCYTES ABSOLUTE AUTO 0.94 K/mm3 (0.16-1.47); MONOCYTES PERCENT AUTO 10 % (4-13); Mean Corpuscular HGB 28.7 pg (26.0-34.0); Mean Corpuscular HGB Conc 32.9 g/dL (31.5-36.5); Mean Corpuscular Volume 87 fL (80-100); NEUTROPHILS ABSOLUTE AUTO 7.14 K/mm3 (1.96-9.15); NEUTROPHILS PERCENT AUTO 78 % (41-73); Platelet Count 318 K/mm3 (150-400); RDW Coefficient Variation 13.6 % (11.7-14.2); RDW Standard Deviation 43.3 fL (35.1-46.3); Red Blood Cell Count 3.35 M/mm3 (3.80-5.20); White Blood Cell Count 9.14 K/mm3 (4.00-11.30)
[2021-06-09 06:43] LABS: Alanine Aminotransfer (ALT/SGP 24 U/L (12-78); Albumin, Blood 2.6 g/dL (3.4-5.0); Albumin/Globulin Ratio 0.8 (0.8-1.8); Alk Phos 159 U/L (50-136); Anion Gap 8 mmol/L (6-16); Aspartate Aminotrans (AST/SGOT 9 U/L (12-37); Bilirubin, Total 0.4 mg/dL (0.1-1.0); Blood Urea Nitrogen 6 mg/dL (8-24); Bun/Creatinine Ratio 12.9 (12.0-20.0); CO2, Blood 31 mmol/L (21-32); Calcium, Blood 8.9 mg/dL (8.5-10.1); Chloride, Blood 99 mmol/L (98-108); Creatinine, Blood 0.46 mg/dL (0.40-1.00); Globulin, Blood 3.4 g/dL (2.2-4.0); Glomerular Filtration Rate >60 (60-); Glucose, Blood 160 mg/dL (70-99); Magnesium, Blood 1.6 mg/dL (1.6-2.4); Potassium, Blood 3.5 mmol/L (3.5-5.5); Sodium, Blood 138 mmol/L (136-145)
[2021-06-09 10:22] LABS: Vancomycin, Trough 4.3 ug/mL (5.0-10.0)
--- NOTE | 2021-06-09 17:35 | NUR ---
PT IS A/OX4, PLEASANT AND COOPERATIVE. UP WITH MINIMAL ASSIST TO THE BSC. PT WAS TITRATED OFF O2 TODAY AND APPEARS TO BE BREATHING EASILY AT REST ON RA. THE PT WAS MEDICATED FOR PAIN IN HER LEFT SIDE WITH TYLENOL TODAY. PTS DAUGHTER IS AT THE BEDSIDE T/O MOST OF THE DAY. PT REMINDED TO GIVE A SAMPLE FOR SPUTUM CX IF ABLE. THE PT REPORTS THAT SHE HAS NOT HAD A PRODUCTIVE COUGH YET TODAY. CALL LIGHT IN REACH. WILL CONTINUE TO MONITOR AND ASSESS FOR CHANGES
[2021-06-10] MEDS ORDERED: LOSARTAN POTASS25 M2 PO (00:42)
[2021-06-10] MEDS ORDERED: Potassium Chlo20 ME1 PO (00:42)
[2021-06-10] MEDS ORDERED: FUROSEMIDE40 MG PO (00:43)
[2021-06-10] MEDS ORDERED: MGO PO (00:44)
[2021-06-10] MEDS ORDERED: DICL75ER PO (00:44)
--- NOTE | 2021-06-10 04:42 | NUR ---
UNDERWRITING CLERKS SUPERVISOR SUMMARY AWAKE AT INTERVALS THROUGH NOCT, VOICED DISCOMFORT FOR WHICH SHE REQUESTED AND RECEIVED TYLENOL. ALSO WAS AWAKENED FOR IV ANTIBIOTICS. OTHERWISE, HAS BEEN RESTING QUIETLY WITHOUT NOTED ACUTE DISTRESS. HAS BEEN ON ROOM AIR THROUGH NOCT. CALL LIGHT IN REACH
[2021-06-10 06:15] LABS: BASOPHILS ABSOLUTE AUTO 0.02 K/mm3 (0.00-0.23); BASOPHILS PERCENT AUTO 0 % (0-2); EOSINOPHILS ABSOLUTE AUTO 0.04 K/mm3 (0.00-0.68); EOSINOPHILS PERCENT AUTO 0 % (0-6); Hematocrit 30.5 % (33.0-51.0); IMMATURE GRAN ABSOLUTE AUTO 0.04 K/mm3 (0.00-0.10); IMMATURE GRAN PERCENT AUTO 0 % (0-1); LYMPHOCYTES ABSOLUTE AUTO 0.84 K/mm3 (0.84-5.20); LYMPHOCYTES PERCENT AUTO 8 % (21-46); MONOCYTES ABSOLUTE AUTO 0.77 K/mm3 (0.16-1.47); MONOCYTES PERCENT AUTO 8 % (4-13); Mean Corpuscular HGB 28.4 pg (26.0-34.0); Mean Corpuscular HGB Conc 32.8 g/dL (31.5-36.5); Mean Corpuscular Volume 87 fL (80-100); NEUTROPHILS ABSOLUTE AUTO 8.37 K/mm3 (1.96-9.15); NEUTROPHILS PERCENT AUTO 83 % (41-73); Platelet Count 340 K/mm3 (150-400); RDW Coefficient Variation 13.6 % (11.7-14.2); RDW Standard Deviation 42.4 fL (35.1-46.3); Red Blood Cell Count 3.52 M/mm3 (3.80-5.20); White Blood Cell Count 10.08 K/mm3 (4.00-11.30)
[2021-06-10 06:38] LABS: Albumin, Blood 2.7 g/dL (3.4-5.0); Anion Gap 9 mmol/L (6-16); Blood Urea Nitrogen 10 mg/dL (8-24); Bun/Creatinine Ratio 21.4 (12.0-20.0); CO2, Blood 30 mmol/L (21-32); Calcium, Blood 8.9 mg/dL (8.5-10.1); Chloride, Blood 96 mmol/L (98-108); Creatinine, Blood 0.47 mg/dL (0.40-1.00); Glomerular Filtration Rate >60 (60-); Glucose, Blood 216 mg/dL (70-99); Magnesium, Blood 1.5 mg/dL (1.6-2.4); Phosphorus, Blood 3.7 mg/dL (2.5-4.9); Potassium, Blood 3.2 mmol/L (3.5-5.5); Sodium, Blood 135 mmol/L (136-145)
--- NOTE | 2021-06-10 17:26 | NUR ---
IS A&OX4. STATES SHE FEELS BETTER BUT STILL FEELS LIKE "THE STUFFING HAS BEEN RIPPED OUT OF HER". HER PREDNISONE DOSE WAS INCREASED TODAY WHICH INCREASED HER BG. SHE HAS BASAL/BOLUS INSULIN COVERAGE AND IS TAKING HER GLIPIZIDE PRESCRIBED. HER L ARM PIV STOPPED FLUSHING AFTER TAKING A SHOWER & WAS REMOVED TODAY. HER PG IV DRSNG WAS CHANGED TODAY AND NEW PORTS PLACED. FLUSHES WELL. VSS, IS AFEBRILE. IS INTERMITTANTLY RESTING & SITTING UP IN HER CH AT THE BEDSIDE. HER DTR VISITED TODAY. APPETITE IS GOOD.
--- NOTE | 2021-06-10 20:36 | NUR ---
PHYSICIAN COMMUNICATION CONTACTED DR HAIR TO NOTIFY HIM THAT THE PATIENT'S BLOOD SURGAR WAS 361. INFORMED HIM THAT SHE RECEIVED 5 UNITS HUMALOG PER HIGH SLIDING SCALE AND HER LONG ACTING INSULIN WAS INCREASED FROM 5 TO 15 UNITS WHICH SHE WOULD BE STARTING IN THE [facility]. NO NEW ORDERS GIVEN.
[2021-06-11 05:57] LABS: BASOPHILS ABSOLUTE AUTO 0.02 K/mm3 (0.00-0.23); BASOPHILS PERCENT AUTO 0 % (0-2); EOSINOPHILS ABSOLUTE AUTO 0.07 K/mm3 (0.00-0.68); EOSINOPHILS PERCENT AUTO 1 % (0-6); Hemoglobin 10.1 g/dL (11.5-16.0); IMMATURE GRAN ABSOLUTE AUTO 0.07 K/mm3 (0.00-0.10); IMMATURE GRAN PERCENT AUTO 1 % (0-1); LYMPHOCYTES ABSOLUTE AUTO 0.73 K/mm3 (0.84-5.20); LYMPHOCYTES PERCENT AUTO 7 % (21-46); MONOCYTES ABSOLUTE AUTO 0.75 K/mm3 (0.16-1.47); MONOCYTES PERCENT AUTO 7 % (4-13); Mean Corpuscular HGB 28.6 pg (26.0-34.0); Mean Corpuscular HGB Conc 32.6 g/dL (31.5-36.5); Mean Corpuscular Volume 88 fL (80-100); Mean Platelet Volume 9.4 fL (9.1-12.4); NEUTROPHILS ABSOLUTE AUTO 9.26 K/mm3 (1.96-9.15); NEUTROPHILS PERCENT AUTO 85 % (41-73); Platelet Count 361 K/mm3 (150-400); RDW Coefficient Variation 13.9 % (11.7-14.2); RDW Standard Deviation 44.2 fL (35.1-46.3); Red Blood Cell Count 3.53 M/mm3 (3.80-5.20)
[2021-06-11 06:27] LABS: Albumin, Blood 2.5 g/dL (3.4-5.0); Anion Gap 3 mmol/L (6-16); Blood Urea Nitrogen 14 mg/dL (8-24); Bun/Creatinine Ratio 30.8 (12.0-20.0); CO2, Blood 34 mmol/L (21-32); Calcium, Blood 8.8 mg/dL (8.5-10.1); Chloride, Blood 94 mmol/L (98-108); Creatinine, Blood 0.45 mg/dL (0.40-1.00); Glomerular Filtration Rate >60 (60-); Glucose, Blood 189 mg/dL (70-99); Magnesium, Blood 1.9 mg/dL (1.6-2.4); Phosphorus, Blood 3.4 mg/dL (2.5-4.9); Sodium, Blood 131 mmol/L (136-145)
[2021-06-11 06:42] LABS: Potassium, Blood 5.4 mmol/L (3.5-5.5)
--- NOTE | 2021-06-11 07:08 | NUR ---
SHIFT SUMMARY PATIENT ALERT AND ORIENTED. MEDICATED PER EMAR FOR PAIN. BREATHING TREATMENTS BY RT. NO ACUTE ISSUES NOTED OVERNIGHT. CALL LIGHT WITHIN REACH. REPORT GIVEN TO ONCOMING RN.
[2021-06-11 11:15] LABS: Albumin, Blood 2.6 g/dL (3.4-5.0); Anion Gap 6 mmol/L (6-16); Blood Urea Nitrogen 16 mg/dL (8-24); Bun/Creatinine Ratio 29.7 (12.0-20.0); CO2, Blood 31 mmol/L (21-32); Calcium, Blood 8.9 mg/dL (8.5-10.1); Chloride, Blood 92 mmol/L (98-108); Creatinine, Blood 0.54 mg/dL (0.40-1.00); Glomerular Filtration Rate >60 (60-); Glucose, Blood 329 mg/dL (70-99); Phosphorus, Blood 2.8 mg/dL (2.5-4.9); Potassium, Blood 3.5 mmol/L (3.5-5.5); Sodium, Blood 129 mmol/L (136-145)
[2021-06-11 13:41] LABS: Albumin, Blood 2.9 g/dL (3.4-5.0); Anion Gap 3 mmol/L (6-16); Blood Urea Nitrogen 16 mg/dL (8-24); Bun/Creatinine Ratio 24.2 (12.0-20.0); CO2, Blood 29 mmol/L (21-32); Calcium, Blood 8.9 mg/dL (8.5-10.1); Chloride, Blood 95 mmol/L (98-108); Creatinine, Blood 0.66 mg/dL (0.40-1.00); Glomerular Filtration Rate >60 (60-); Glucose, Blood 256 mg/dL (70-99); Phosphorus, Blood 2.5 mg/dL (2.5-4.9); Sodium, Blood 127 mmol/L (136-145)
[2021-06-11 16:10] LABS: Source, Urine Clean Catch
[2021-06-11 16:46] LABS: Appearance, Urine Clear (Clear); Bilirubin, Urine Neg (Neg); Blood, Urine Neg (Neg); Color, Urine Yellow (P-Yellow); Glucose Qualitative, Urine Neg (Neg); Ketones, Urine Neg (Neg); Leukocyte Esterase, Urine 1+ (Neg); Nitrite, Urine Neg (Neg); Protein, Urine Neg (Neg); Specific Gravity, Urine 1.015 (1.003-1.022); Urobilinogen, Urine NORM (Normal)
[2021-06-11 16:53] LABS: Bacteria Few /hpf; Red Blood Cells, Urine 0-2 /hpf (0-2); Squamous Epithelial Cells Few /hpf (Few)
--- NOTE | 2021-06-11 18:18 | NUR ---
SHIFT SUMMARY A&OX4. GETS UP TO RESTROOM USING WALKER AND SBA. SENT UA THIS AFTERNOON. C/O PAIN AND FEVER. MEDICATED PER MAY X2. RECEIVED BT PER RT. ON 1000ML FLUID RESTRICTION. LOW SODIUM THIS AFTERNOON. LAST NA 130. PROVIDED INSULIN COVERAGE PER MAY. GOOD APPETITE. WILL CONTINUE TO MONITOR.
--- NOTE | 2021-06-12 04:36 | NUR ---
SHIFT SUMMARY 85 YR F ADMITTED ON 06/06/21 FOR PNEUMONIA. FULL CODE. NO ACUTE CHANGES THIS SHIFT. PT USES CALL LIGHT APPROPRIATELY FOR STAND BY ASSIST TO BATHROOM. SHE IS A&O X 4 BUT IS HARD OF HEARING IF SHE DOES NOT HAVE HER HEARING AIDES IN. SHE TAKES THEM OUT TO SLEEP. NO ACUTE CHANGES THIS SHIFT. PT C/O HEADACHE AND GIVEN TYLENOL PER EMAR.
[2021-06-12 05:10] LABS: BASOPHILS ABSOLUTE AUTO 0.01 K/mm3 (0.00-0.23); BASOPHILS PERCENT AUTO 0 % (0-2); EOSINOPHILS ABSOLUTE AUTO 0.06 K/mm3 (0.00-0.68); EOSINOPHILS PERCENT AUTO 1 % (0-6); Hematocrit 30.6 % (33.0-51.0); IMMATURE GRAN ABSOLUTE AUTO 0.04 K/mm3 (0.00-0.10); IMMATURE GRAN PERCENT AUTO 1 % (0-1); LYMPHOCYTES ABSOLUTE AUTO 0.82 K/mm3 (0.84-5.20); LYMPHOCYTES PERCENT AUTO 10 % (21-46); MONOCYTES ABSOLUTE AUTO 0.65 K/mm3 (0.16-1.47); MONOCYTES PERCENT AUTO 8 % (4-13); Mean Corpuscular HGB 28.6 pg (26.0-34.0); Mean Corpuscular HGB Conc 32.7 g/dL (31.5-36.5); Mean Corpuscular Volume 87 fL (80-100); Mean Platelet Volume 9.2 fL (9.1-12.4); NEUTROPHILS ABSOLUTE AUTO 6.42 K/mm3 (1.96-9.15); NEUTROPHILS PERCENT AUTO 80 % (41-73); Platelet Count 329 K/mm3 (150-400); RDW Coefficient Variation 13.4 % (11.7-14.2); RDW Standard Deviation 42.8 fL (35.1-46.3)
[2021-06-12 05:24] LABS: Albumin, Blood 2.5 g/dL (3.4-5.0); Anion Gap 8 mmol/L (6-16); Blood Urea Nitrogen 16 mg/dL (8-24); CO2, Blood 30 mmol/L (21-32); Calcium, Blood 8.7 mg/dL (8.5-10.1); Chloride, Blood 98 mmol/L (98-108); Creatinine, Blood 0.53 mg/dL (0.40-1.00); Glomerular Filtration Rate >60 (60-); Glucose, Blood 135 mg/dL (70-99); Magnesium, Blood 1.9 mg/dL (1.6-2.4); Potassium, Blood 3.4 mmol/L (3.5-5.5); Sodium, Blood 136 mmol/L (136-145)
--- NOTE | 2021-06-12 19:24 | NUR ---
SHIFT SUMMARY A&OX4. WEANED OFF O2 THIS AFTERNOON AND TOLERATING WELL. GETS UP TO RESTROOM WITH WALKER AND SBA. C/O HEADACHE THIS AM. MEDICATED PER MAY. PLANS FOR POSSIBLE DISCHARGE TOMORROW. VSS. REPORT GIVEN TO ONCOMING RN.
--- NOTE | 2021-06-13 05:22 | NUR ---
SHIFT SUMMARY 85 YR F ADMITTED ON 06/06/21 FOR PNEUMONIA. FULL CODE. PT IS HOPING TO BE DISCHARGED TODAY SHE IS FEELING MUCH BETTER AND MOST OF HER ORIGINAL SX ARE GONE. SHE AMBULATES INDEPENDANTLY IN ROOM AND IS A&O X 4. NO SIGNIFICANT CHANGES THIS SHIFT.
[2021-06-13] MEDS ORDERED: AMOCLA875 PO (10:35)
[2021-06-13] MEDS ORDERED: VISBIOME 112.51 EACH PO (10:37)
[2021-06-13] MEDS ORDERED: LEVO750 PO (10:37)
[2021-06-13] MEDS ORDERED: BASAGLAR K100 UNIT/1 SC (10:37)
--- NOTE | 2021-06-13 16:06 | NUR ---
PATIENT DISCHARGED HOME TODAY WITH DAUGHTER. PATIENT IS NOTED TO HAVE RAPID RESPIRATIONS WHEN TALKING ABOUT GOING HOME, HOWEVER WHEN SHE IS DISTRACTED HER RESPIRATIONS ARE MORE IN THE NORMAL RANGE AND APPEAR MUCH LESS STRIDOROUS. DAUGHTER IS GOING TO STAY WITH HER AT HOME AND WILL BRING HER TO APPOINTMENT ON TUESDAY AT [facility].
--- NOTE | 2021-06-15 08:25 | NUR ---
Per Dr. Granados, patient appropriate to discharge home with home health on Tuesday, June 13. [facility] CM had previously scheduled a hospital follow up with Dr. Vanessa Packer for June 16 at 10:40am. Patient to discharge home with her daughter, daughter provides transportation and help with ADLs. All agreeable to discharge plan, deny barriers to discharge.
== END 2021-06-13 11:48 | disposition home health service (06) | DRG 871 ==
LOC: ER 16:14 → MEDS 20:30
PROVIDERS: Emergency Medicine; Family Medicine; Hospitalist; Pharmacist; ADMIT Hospitalist
DX: A41.52 Sepsis due to Pseudomonas (principal); J96.01 Acute respiratory failure with hypoxia; I21.A1 Myocardial infarction type 2; J15.1 Pneumonia due to Pseudomonas; U07.1 COVID-19; J44.0 Chronic obstructive pulmonary disease with (acute) lower respiratory infection; I42.9 Cardiomyopathy, unspecified; D84.821 Immunodeficiency due to drugs; I50.20 Unspecified systolic (congestive) heart failure; E87.1 Hypo-osmolality and hyponatremia; E87.6 Hypokalemia; E83.42 Hypomagnesemia; M06.9 Rheumatoid arthritis, unspecified; K21.9 Gastro-esophageal reflux disease without esophagitis; F32.A Depression, unspecified; E11.9 Type 2 diabetes mellitus without complications; I27.20 Pulmonary hypertension, unspecified; D64.9 Anemia, unspecified; I11.0 Hypertensive heart disease with heart failure; M85.80 Other specified disorders of bone density and structure, unspecified site; E78.5 Hyperlipidemia, unspecified; Z86.16 Personal history of COVID-19; Z88.8 Allergy status to other drugs, medicaments and biological substances; Z79.82 Long term (current) use of aspirin; Z79.84 Long term (current) use of oral hypoglycemic drugs; Z79.899 Other long term (current) drug therapy; Z79.52 Long term (current) use of systemic steroids; Z90.89 Acquired absence of other organs; Z90.49 Acquired absence of other specified parts of digestive tract; Z98.890 Other specified postprocedural states
CPT/HCPCS: 0202U; 0241U; 36415; 71045; 71046; 71260; 80048; 80053; 80069; 80202; 81001; 82947; 83605; 83735; 83880; 84100; 84145; 84295; 84484; 85025; 87040; 87077; 87086; 87186; 87449; 93005; 93010; 94640; 94760; 96374; 99285-25; A9270; C1751; J1650; J1815; J1956; J2060; J2543; J3370; J3475; J3480; J7030; J7050; J7512; Q9967

== ENCOUNTER → 2021-07-03 | Outpatient (CLI) | payer MEDICARE, BC ==
[~2021-07-03] MED LIST changes: +AMOCLA875 PO; +BASAGLAR K100 UNIT/1 SC; +DICL75ER PO; +FUROSEMIDE40 MG PO; +LEVO750 PO; +LOSARTAN POTASS25 M2 PO; +MGO PO; +Potassium Chlo20 ME1 PO; +VISBIOME 112.51 EACH PO; +Ventolin5 MG/1 ML INH
[2021-07-03 18:26] LABS: BASOPHILS ABSOLUTE AUTO 0.01 K/mm3 (0.00-0.23); BASOPHILS PERCENT AUTO 0 % (0-2); EOSINOPHILS ABSOLUTE AUTO 0.01 K/mm3 (0.00-0.68); EOSINOPHILS PERCENT AUTO 0 % (0-6); Hematocrit 31.6 % (33.0-51.0); Hemoglobin 9.9 g/dL (11.5-16.0); IMMATURE GRAN ABSOLUTE AUTO 0.04 K/mm3 (0.00-0.10); IMMATURE GRAN PERCENT AUTO 0 % (0-1); LYMPHOCYTES ABSOLUTE AUTO 0.69 K/mm3 (0.84-5.20); LYMPHOCYTES PERCENT AUTO 6 % (21-46); MONOCYTES PERCENT AUTO 4 % (4-13); Mean Corpuscular HGB 26.5 pg (26.0-34.0); Mean Corpuscular HGB Conc 31.3 g/dL (31.5-36.5); Mean Corpuscular Volume 85 fL (80-100); Mean Platelet Volume 9.6 fL (9.1-12.4); NEUTROPHILS ABSOLUTE AUTO 9.63 K/mm3 (1.96-9.15); NEUTROPHILS PERCENT AUTO 89 % (41-73); Platelet Count 329 K/mm3 (150-400); RDW Standard Deviation 43.5 fL (35.1-46.3); Red Blood Cell Count 3.74 M/mm3 (3.80-5.20); White Blood Cell Count 10.78 K/mm3 (4.00-11.30)
[2021-07-03 19:28] LABS: Alanine Aminotransfer (ALT/SGP 15 U/L (12-78); Albumin, Blood 2.8 g/dL (3.4-5.0); Albumin/Globulin Ratio 0.8 (0.8-1.8); Alk Phos 88 U/L (50-136); Anion Gap 9 mmol/L (6-16); Aspartate Aminotrans (AST/SGOT 9 U/L (12-37); Bilirubin, Total 0.5 mg/dL (0.1-1.0); Blood Urea Nitrogen 10 mg/dL (8-24); Bun/Creatinine Ratio 24.6 (12.0-20.0); CO2, Blood 25 mmol/L (21-32); Calcium, Blood 8.8 mg/dL (8.5-10.1); Chloride, Blood 101 mmol/L (98-108); Creatinine, Blood 0.41 mg/dL (0.40-1.00); Globulin, Blood 3.5 g/dL (2.2-4.0); Glomerular Filtration Rate >60 (60-); Glucose, Blood 283 mg/dL (70-99); Magnesium, Blood 1.4 mg/dL (1.6-2.4); Potassium, Blood 3.9 mmol/L (3.5-5.5); Sodium, Blood 135 mmol/L (136-145); Thyroid Stimulating Hormone 0.526 uIU/mL (0.360-4.800); Total Protein, Blood 6.3 g/dL (6.4-8.2)
== END | disposition home or self-care (01) ==
LOC: LAB SHORT 17:13
PROVIDERS: Hospitalist
DX: E78.5 Hyperlipidemia, unspecified (principal); M05.89 Other rheumatoid arthritis with rheumatoid factor of multiple sites
CPT/HCPCS: 80053; 83735; 84443; 85025; 85651; 86140

== ENCOUNTER 2021-07-04 09:39 | Inpatient (IN) | payer MEDICARE, BC ==
[~2021-07-04] VITALS: Ht 162.6 cm; Wt 75.7 kg
[2021-07-04 11:21] LABS: BASOPHILS ABSOLUTE AUTO 0.02 K/mm3 (0.00-0.23); BASOPHILS PERCENT AUTO 0 % (0-2); EOSINOPHILS ABSOLUTE AUTO 0.01 K/mm3 (0.00-0.68); EOSINOPHILS PERCENT AUTO 0 % (0-6); Hematocrit 32.3 % (33.0-51.0); Hemoglobin 10.5 g/dL (11.5-16.0); IMMATURE GRAN ABSOLUTE AUTO 0.05 K/mm3 (0.00-0.10); IMMATURE GRAN PERCENT AUTO 0 % (0-1); LYMPHOCYTES ABSOLUTE AUTO 0.69 K/mm3 (0.84-5.20); LYMPHOCYTES PERCENT AUTO 6 % (21-46); MONOCYTES ABSOLUTE AUTO 0.61 K/mm3 (0.16-1.47); MONOCYTES PERCENT AUTO 5 % (4-13); Mean Corpuscular HGB 27.5 pg (26.0-34.0); Mean Corpuscular HGB Conc 32.5 g/dL (31.5-36.5); Mean Corpuscular Volume 85 fL (80-100); Mean Platelet Volume 9.3 fL (9.1-12.4); NEUTROPHILS PERCENT AUTO 88 % (41-73); Platelet Count 324 K/mm3 (150-400); RDW Coefficient Variation 14.2 % (11.7-14.2); RDW Standard Deviation 43.5 fL (35.1-46.3); Red Blood Cell Count 3.82 M/mm3 (3.80-5.20); White Blood Cell Count 11.98 K/mm3 (4.00-11.30)
[2021-07-04 11:40] LABS: Alanine Aminotransfer (ALT/SGP 15 U/L (12-78); Albumin, Blood 2.9 g/dL (3.4-5.0); Albumin/Globulin Ratio 0.8 (0.8-1.8); Alk Phos 84 U/L (50-136); Anion Gap 8 mmol/L (6-16); Aspartate Aminotrans (AST/SGOT 11 U/L (12-37); Bilirubin, Total 0.6 mg/dL (0.1-1.0); Blood Urea Nitrogen 9 mg/dL (8-24); Bun/Creatinine Ratio 21.9 (12.0-20.0); CO2, Blood 26 mmol/L (21-32); Calcium, Blood 8.8 mg/dL (8.5-10.1); Chloride, Blood 102 mmol/L (98-108); Creatinine, Blood 0.41 mg/dL (0.40-1.00); Globulin, Blood 3.5 g/dL (2.2-4.0); Glomerular Filtration Rate >60 (60-); Glucose, Blood 159 mg/dL (70-99); Potassium, Blood 3.7 mmol/L (3.5-5.5); Sodium, Blood 136 mmol/L (136-145); Total Protein, Blood 6.4 g/dL (6.4-8.2)
[2021-07-04 11:55] LABS: Source, Urine Straight Cath
[2021-07-04 11:59] LABS: Bilirubin, Urine Neg (Neg); Blood, Urine Neg (Neg); Glucose Qualitative, Urine Neg (Neg); Ketones, Urine 1+ (Neg); Leukocyte Esterase, Urine Neg (Neg); Nitrite, Urine Neg (Neg); Protein, Urine Neg (Neg); Urobilinogen, Urine 3+ (Normal)
[2021-07-04 12:10] LABS: Appearance, Urine Clear (Clear); Color, Urine Yellow (P-Yellow)
--- NOTE | 2021-07-04 16:50 | NUR ---
Pt arrived to 310 via gurney from ED, her daughter is in attendence, she is able to stand and tx to bed with assist, she is breathing hard, a/ox3, [place], pleasant and cooperative with care, follows commands well, denies pain, lungs are clear dim in upper muller, course in bases, resp even and unlabored, no cough noted, hr is bounding, and irregular, 1-2+ edema noted to b/l le, pp faint, cap refill <3sec, v.s. stable, except temp is 103.5 with one thermometer and 105.5 with another, Dr. Asher notified, will get core temp and administer tylenol, tele in place running afib per monitor, pt can void without diff, btx4 abd flat soft nontender, skin is frail but c/w/d, maew, weak, charlee, will place new iv for ct angio, oriented to room layout and call system, call light in reach.
--- NOTE | 2021-07-04 17:27 | NUR ---
pt was given tylenol for temp. core temp was 102.9, recheck at this time is 102.0. waiting on iv start after a number of attempts to get ct done. pt much more relaxed and breathing is much better, currently on r/a. call light in reach.
[2021-07-04 17:49] LABS: Anti-Xa UFH, PHA Monitoring <0.10 IU/mL; International Normalized Ratio 1.18; Prothrombin Time Results 12.3 Sec (9.7-11.5)
--- NOTE | 2021-07-04 19:17 | NUR ---
pt is doing better, more relaxed, needed another iv for ct angio, after a number of attempts pcu nurse placed a power glied to armida, just returned to room from ct, and report given to oncoming nurse, no further changes. call light in reach.
--- NOTE | 2021-07-05 00:34 | NUR ---
Patient reports headache. 9/10 pain level. tylenol 650mg given PO. Pt up in bedside commode. 1 sba. tolerates it well. Pt denies dizziness, feels steady on her feet. rechecked temp temporal at 98.8.
[2021-07-05 02:09] LABS: BASOPHILS ABSOLUTE AUTO 0.03 K/mm3 (0.00-0.23); BASOPHILS PERCENT AUTO 0 % (0-2); EOSINOPHILS ABSOLUTE AUTO 0.14 K/mm3 (0.00-0.68); EOSINOPHILS PERCENT AUTO 2 % (0-6); Hemoglobin 9.6 g/dL (11.5-16.0); IMMATURE GRAN ABSOLUTE AUTO 0.06 K/mm3 (0.00-0.10); IMMATURE GRAN PERCENT AUTO 1 % (0-1); LYMPHOCYTES ABSOLUTE AUTO 1.04 K/mm3 (0.84-5.20); LYMPHOCYTES PERCENT AUTO 11 % (21-46); MONOCYTES ABSOLUTE AUTO 0.79 K/mm3 (0.16-1.47); MONOCYTES PERCENT AUTO 8 % (4-13); Mean Corpuscular HGB 27.1 pg (26.0-34.0); Mean Corpuscular Volume 85 fL (80-100); Mean Platelet Volume 9.1 fL (9.1-12.4); NEUTROPHILS ABSOLUTE AUTO 7.39 K/mm3 (1.96-9.15); NEUTROPHILS PERCENT AUTO 78 % (41-73); Platelet Count 339 K/mm3 (150-400); RDW Coefficient Variation 14.3 % (11.7-14.2); RDW Standard Deviation 44.5 fL (35.1-46.3); Red Blood Cell Count 3.54 M/mm3 (3.80-5.20); White Blood Cell Count 9.45 K/mm3 (4.00-11.30)
[2021-07-05 02:19] LABS: Anion Gap 6 mmol/L (6-16); Blood Urea Nitrogen 8 mg/dL (8-24); CO2, Blood 29 mmol/L (21-32); Calcium, Blood 8.7 mg/dL (8.5-10.1); Chloride, Blood 102 mmol/L (98-108); Creatinine, Blood 0.44 mg/dL (0.40-1.00); Glomerular Filtration Rate >60 (60-); Glucose, Blood 90 mg/dL (70-99); Magnesium, Blood 1.6 mg/dL (1.6-2.4); Potassium, Blood 3.5 mmol/L (3.5-5.5); Sodium, Blood 137 mmol/L (136-145)
--- NOTE | 2021-07-05 04:45 | NUR ---
SHIFT SUMMARY AOX3-4, FORGETFUL AT TIMES. PLEASANT AND COOPERATIVE WITH CARE. TEMP IMPROVED T/O SHIFT. VSS. LASIX AND LOSARTAN STARTED AT THE BEGINNING OF SHIFT WITH HEPARIN DRIP AND CONTINUED BOLUS FLUIDS. PT HAS BEEN VOIDING FREQUENLTY LAST NIGHT. DENIES DIZZINESS, N/T. TOLERATING PO INTAKE, DENIES N/V. O2 SATS WITHIN NORMAL LIMITS, BUT PT APPEARS OUT OF BREATH AT TIMES, LABORED BREATHING. PT REPORTS CHEST PAIN FOR ALMOST A WEEK AND SOB. PT IS A 1 SBA TO BATHROOM BUT HAS BEEN USING BSC LAST NIGHT DUE TO FREQUENT URINATION RELATED TO LASIX TX. PT SLEPT GOOD AFTER MIDNIGHT. POWERGLIDE ON YANIV INFUSING HEP DRIP WITH PX MANAGEMENT. URINE CX SENT TO LAB. LABS WERE DRAWN. CALL LIGHT WITHIN REACH. WILL CONTINUE TO MONITOR AND WILL PROVIDE REPORT TO ONCOMING NURSE.
--- NOTE | 2021-07-05 09:00 | NUR ---
pt laying in bed awake a/ox3, [place], pleasant and cooperative with care, follows commands well, denies pain, reports she is breathing better, reports she slept most of the night, lungs are clear in upper field, a bit dim/course in bases, resp even and unlabored, no cough noted, hrirr, tele in place running afib per monitor, see strip, trace edema noted to b/l le, ppp+2, cap refill <3sec, vs stable, afebrile, power glide to armida, site is clear and infusing heperin gtt as ordered, piv to left hand is very tender will remove, unable to flush, btx4, abd flat soft nontender, voids without diff, skin frail c/d/i, charlee jerez, call light in reach.
--- NOTE | 2021-07-05 18:05 | NUR ---
pt is doing better, reports she will be dismissed tomorrow, is concerned about a outpt pulminary function test scheduled for 7:00 am tomorow. hasn't been able to cancel it or reschedule due to weekend. heperin was stopped and she is now on a fluid restriction of 2l/d. no further changes this shift, call light in reach.
--- NOTE | 2021-07-05 22:46 | NUR ---
2245: AYANNA FROM TELE CALLED STATING THAT PT WAS ON VTACH 7 BEATS FOR FEW SECONDS. PT IS SLEEPING COMFORTABLE IN BED AT THIS TIME. NOTIFIED CHARGE NURSE MARY ELLEN. WILL CONTINUE TO MONITOR PT.
[2021-07-06 03:54] LABS: BASOPHILS ABSOLUTE AUTO 0.03 K/mm3 (0.00-0.23); BASOPHILS PERCENT AUTO 0 % (0-2); EOSINOPHILS ABSOLUTE AUTO 0.24 K/mm3 (0.00-0.68); EOSINOPHILS PERCENT AUTO 2 % (0-6); Hematocrit 29.4 % (33.0-51.0); Hemoglobin 9.4 g/dL (11.5-16.0); IMMATURE GRAN ABSOLUTE AUTO 0.09 K/mm3 (0.00-0.10); IMMATURE GRAN PERCENT AUTO 1 % (0-1); LYMPHOCYTES ABSOLUTE AUTO 1.04 K/mm3 (0.84-5.20); LYMPHOCYTES PERCENT AUTO 10 % (21-46); MONOCYTES ABSOLUTE AUTO 0.63 K/mm3 (0.16-1.47); MONOCYTES PERCENT AUTO 6 % (4-13); Mean Corpuscular HGB 26.8 pg (26.0-34.0); Mean Corpuscular Volume 84 fL (80-100); Mean Platelet Volume 9.4 fL (9.1-12.4); NEUTROPHILS ABSOLUTE AUTO 8.28 K/mm3 (1.96-9.15); NEUTROPHILS PERCENT AUTO 80 % (41-73); Platelet Count 355 K/mm3 (150-400); RDW Coefficient Variation 14.4 % (11.7-14.2); RDW Standard Deviation 43.7 fL (35.1-46.3); Red Blood Cell Count 3.51 M/mm3 (3.80-5.20); White Blood Cell Count 10.31 K/mm3 (4.00-11.30)
[2021-07-06 04:09] LABS: Anion Gap 7 mmol/L (6-16); Blood Urea Nitrogen 13 mg/dL (8-24); Bun/Creatinine Ratio 29.9 (12.0-20.0); CO2, Blood 27 mmol/L (21-32); Calcium, Blood 8.7 mg/dL (8.5-10.1); Chloride, Blood 100 mmol/L (98-108); Creatinine, Blood 0.44 mg/dL (0.40-1.00); Glomerular Filtration Rate >60 (60-); Glucose, Blood 141 mg/dL (70-99); Sodium, Blood 134 mmol/L (136-145)
--- NOTE | 2021-07-06 07:51 | NUR ---
SHIFT SUMMARY AOX4. AMBULATES SBA AT [facility] DUE TO LASIX BUT PT HAS BEEN STABLE. VSS. ABX GIVEN OVERNIGHT. PT REPORTS MIGRAINE, PAIN MANAGED WITH TYLENOL. TOLERATING PO INTAKE, DENIES N/V. PT REPORTS SHE COULD NOT SLEEP WELL LAST NIGHT AND FEELS OUT OF BREATH. 02 SATS FROM 91-96, DESATS INTERMITTENTLY ON 90-93% WHEN TALKING. CALL LIGHT WITHIN REACH. REPORT GIVEN TO AM NURSE.
--- NOTE | 2021-07-06 18:09 | NUR ---
END OF SHIFT SUMMARY: PATIENT DENIED SHORTNESS OF BREATH FOR MOST OF THE SHIFT. REQUESTED BREATHING TREATMENT MID-AFTERNOON. TREATMENT RESOLVED BREATHING DISCOMFORT FOR THE PATIENT. PATIENT OTHERWISE STABLE ON RA WITH SATURATIONS AT 94%. NO SHORTNESS OF BREATH NOTED WHEN THE PATIENT WAS UP TO THE CHAIR OR BEDSIDE COMMODE. LUNG SOUNDS CLEAR AND DIMINISHED DURING SHIFT. PATIENT HAS OCCASIONAL PRODUCTIVE COUGH. MEDICATED WITH PO DIURETICS THIS AM. PATIENT VOIDED MINIMAL AMOUNT WITH A BOWEL MOVEMENT. NOTIFIED DR. CONTRERAS AND MEDICATED PATIENT PER NEW ORDERS. PATIENT RESPONDED WELL TO NEW ORDER FOR BUMEX, PRODUCING 1600 MLS OF CLEAR, YELLOW URINE WITHIN THE FIRST 3 HOURS OF RECEIVING THE MEDICATION. PATIENT'S DAUGHTER AT BEDSIDE. DAUGHTER KNOWLEDGEABLE OF PATIENTS PLAN OF CARE AND SUPPORTIVE OF THE PATIENT.
[2021-07-07 04:57] LABS: BASOPHILS ABSOLUTE AUTO 0.03 K/mm3 (0.00-0.23); BASOPHILS PERCENT AUTO 0 % (0-2); EOSINOPHILS ABSOLUTE AUTO 0.17 K/mm3 (0.00-0.68); EOSINOPHILS PERCENT AUTO 2 % (0-6); Hematocrit 31.6 % (33.0-51.0); IMMATURE GRAN ABSOLUTE AUTO 0.06 K/mm3 (0.00-0.10); IMMATURE GRAN PERCENT AUTO 1 % (0-1); LYMPHOCYTES ABSOLUTE AUTO 1.39 K/mm3 (0.84-5.20); LYMPHOCYTES PERCENT AUTO 15 % (21-46); MONOCYTES ABSOLUTE AUTO 0.79 K/mm3 (0.16-1.47); MONOCYTES PERCENT AUTO 9 % (4-13); Mean Corpuscular HGB 27.1 pg (26.0-34.0); Mean Corpuscular HGB Conc 31.6 g/dL (31.5-36.5); Mean Corpuscular Volume 86 fL (80-100); Mean Platelet Volume 9.4 fL (9.1-12.4); NEUTROPHILS ABSOLUTE AUTO 6.61 K/mm3 (1.96-9.15); NEUTROPHILS PERCENT AUTO 73 % (41-73); Platelet Count 328 K/mm3 (150-400); RDW Coefficient Variation 14.2 % (11.7-14.2); RDW Standard Deviation 44.1 fL (35.1-46.3); Red Blood Cell Count 3.69 M/mm3 (3.80-5.20); White Blood Cell Count 9.05 K/mm3 (4.00-11.30)
[2021-07-07 05:38] LABS: Anion Gap 8 mmol/L (6-16); Blood Urea Nitrogen 13 mg/dL (8-24); CO2, Blood 25 mmol/L (21-32); Calcium, Blood 9.2 mg/dL (8.5-10.1); Chloride, Blood 100 mmol/L (98-108); Creatinine, Blood 0.43 mg/dL (0.40-1.00); Glomerular Filtration Rate >60 (60-); Glucose, Blood 159 mg/dL (70-99); Sodium, Blood 133 mmol/L (136-145)
--- NOTE | 2021-07-07 06:09 | NUR ---
SHIFT SUMMARY PT A/O X 4, NO C/O PAIN, MAURICIO PO, VOIDING LARGE AMOUNT OF CLEAR, YELLOW URINE. MED PER MAR X 1 FOR C/O HEADACHE, UP WITH SBA/WALKER, VSS, AFEBRILE, ABX'S PER MAR. PT COMPLIANT WITH 2000 ML FLUID RESTRICTION. BREATHING TX PER MAR PER RT X 1 FOR C/O SOB. LUNGS CLEAR, DIMINISHED, ON ROOM AIR. PT RESTED WELL, ANTICIPATE D/C WHEN MEDICALLY STABLE.
[2021-07-07] MEDS ORDERED: BUME2 PO (13:21)
--- NOTE | 2021-07-07 14:54 | NUR ---
DISCHARGE PATIENTS POWER GLIDE WAS REMOVED. SHE WAS PROVIDED WITH DISCHARGE INSTRUCTIONS. SCRIPTS FAXED TO [facility]. PATIENTS DAUGHTER IS WITH HER, AND PROVIDING A RIDE HOME. SHE WAS WHEELED OUT BY TO [facility].
== END 2021-07-07 14:11 | disposition home or self-care (01) | DRG 871 ==
LOC: ER 09:39 → MEDS 09:40 → ER 09:40 → MEDS 09:40
PROVIDERS: Emergency Medicine; Family Medicine; ADMIT Internal Medicine
DX: A41.9 Sepsis, unspecified organism (principal); J96.01 Acute respiratory failure with hypoxia; J18.9 Pneumonia, unspecified organism; I50.33 Acute on chronic diastolic (congestive) heart failure; J12.82 Pneumonia due to coronavirus disease 2019; J44.0 Chronic obstructive pulmonary disease with (acute) lower respiratory infection; E11.9 Type 2 diabetes mellitus without complications; Z79.899 Other long term (current) drug therapy; Z98.890 Other specified postprocedural states; Z88.1 Allergy status to other antibiotic agents; Z88.5 Allergy status to narcotic agent; Z88.8 Allergy status to other drugs, medicaments and biological substances; M06.9 Rheumatoid arthritis, unspecified; E78.5 Hyperlipidemia, unspecified; I11.0 Hypertensive heart disease with heart failure; Z90.49 Acquired absence of other specified parts of digestive tract; Z96.651 Presence of right artificial knee joint; Z90.10 Acquired absence of unspecified breast and nipple; Z90.710 Acquired absence of both cervix and uterus; F41.8 Other specified anxiety disorders; F32.A Depression, unspecified; Z79.4 Long term (current) use of insulin
CPT/HCPCS: 36415; 71045; 71260; 80048; 80053; 81003; 82947; 83605; 83735; 83880; 84145; 84443; 84484; 85025; 85520; 85610; 85651; 85730; 86140; 87040; 87077; 87086; 87186; 93005; 93010; 93306; 94640; 94664; 94760; 96374; 96375; 96376; 97161; 97165; 97530; 97535; 99285-25; A9270; C1751; G0378; J0692; J1644; J1815; J1940; J7030; J7512; Q9967

== ENCOUNTER → 2021-12-28 | Outpatient (CLI) | payer MEDICARE, BC ==
[~2021-12-28] MED LIST changes: +BUME2 PO
[2021-12-28 13:43] LABS: Adenovirus F 40/41 Not Detected (NOT DETECT); Astrovirus Not Detected (NOT DETECT); Campylobacter Sp Not Detected (NOT DETECT); Cryptosporidium Not Detected (NOT DETECT); Cyclospora Cayetanensis Not Detected (NOT DETECT); E. Coli O157 Not Detected (NOT DETECT); Entamoeba Histolytica Not Detected (NOT DETECT); Enteroaggregative E. coli-EAEC Not Detected (NOT DETECT); Enteropathogenic E. coli-EPEC Not Detected (NOT DETECT); Enterotoxigenic E. coli-ETEC Not Detected (NOT DETECT); Giardia Lamblia Not Detected (NOT DETECT); Norovirus GI/GII Not Detected (NOT DETECT); Plesiomonas Shigelloides Not Detected (NOT DETECT); Rotavirus A Not Detected (NOT DETECT); Salmonella Sp Not Detected (NOT DETECT); Sapovirus Not Detected (NOT DETECT); Shiga Toxin-prod E. coli-STEC Not Detected (NOT DETECT); Shigella/Enteroin E. coli-EIEC Not Detected (NOT DETECT); Vibrio Cholerae Not Detected (NOT DETECT); Vibrio Sp Not Detected (NOT DETECT); Yersinia Enterocolitica Not Detected (NOT DETECT)
== END | disposition home or self-care (01) ==
LOC: LAB 08:15 → LAB SHORT 08:15
PROVIDERS: Hospitalist
DX: R19.7 Diarrhea, unspecified (principal)
CPT/HCPCS: 87507

== ENCOUNTER 2023-05-05 13:59 | Emergency (ER) | payer MEDICARE, BC ==
[~2023-05-05] VITALS: Ht 162.6 cm; Wt 88.5 kg
[2023-05-05 14:45] LABS: BASOPHILS ABSOLUTE AUTO 0.04 K/mm3 (0.00-0.23); BASOPHILS PERCENT AUTO 1 % (0-2); EOSINOPHILS PERCENT AUTO 1 % (0-6); Hematocrit 38.9 % (33.0-51.0); Hemoglobin 13.3 g/dL (11.5-16.0); IMMATURE GRAN ABSOLUTE AUTO 0.02 K/mm3 (0.00-0.10); IMMATURE GRAN PERCENT AUTO 0 % (0-1); LYMPHOCYTES ABSOLUTE AUTO 1.19 K/mm3 (0.84-5.20); LYMPHOCYTES PERCENT AUTO 15 % (21-46); MONOCYTES ABSOLUTE AUTO 0.57 K/mm3 (0.16-1.47); MONOCYTES PERCENT AUTO 7 % (4-13); Mean Corpuscular HGB 30.6 pg (26.0-34.0); Mean Corpuscular HGB Conc 34.2 g/dL (31.5-36.5); Mean Corpuscular Volume 89 fL (80-100); Mean Platelet Volume 8.8 fL (9.1-12.4); NEUTROPHILS ABSOLUTE AUTO 6.11 K/mm3 (1.96-9.15); NEUTROPHILS PERCENT AUTO 76 % (41-73); Platelet Count 271 K/mm3 (150-400); RDW Coefficient Variation 13.2 % (11.7-14.2); Red Blood Cell Count 4.35 M/mm3 (3.80-5.20); White Blood Cell Count 8.03 K/mm3 (4.00-11.30)
[2023-05-05 15:00] LABS: Albumin, Blood 3.8 g/dL (3.4-5.0); Albumin/Globulin Ratio 1.2 (0.8-1.8); Bilirubin, Total 0.4 mg/dL (0.1-1.0); Bun/Creatinine Ratio 35.7 (12.0-20.0); Calcium, Blood 9.3 mg/dL (8.5-10.1); Creatinine, Blood 0.64 mg/dL (0.40-1.00); Globulin, Blood 3.3 g/dL (2.2-4.0); Potassium, Blood 3.8 mmol/L (3.5-5.5); Total Protein, Blood 7.1 g/dL (6.4-8.2)
[2023-05-05] MEDS ORDERED: Metoprolol Tartrate 50 MG Tab PO ONE (16:25)
[2023-05-05] MEDS ORDERED: METO100ER PO (17:31)
[2023-05-05] MEDS ORDERED: ELIQUIS5 MG PO (17:42)
[2023-05-05 18:13] VITALS: BP 121/86
== END 2023-05-05 18:14 | disposition home or self-care (01) ==
LOC: ER 13:59
PROVIDERS: Emergency Medicine
DX: I48.91 Unspecified atrial fibrillation (principal); I10 Essential (primary) hypertension; M06.9 Rheumatoid arthritis, unspecified; E11.9 Type 2 diabetes mellitus without complications; K21.9 Gastro-esophageal reflux disease without esophagitis; E78.5 Hyperlipidemia, unspecified; Z79.82 Long term (current) use of aspirin; Z79.52 Long term (current) use of systemic steroids; Z79.4 Long term (current) use of insulin; Z79.84 Long term (current) use of oral hypoglycemic drugs; Z79.899 Other long term (current) drug therapy; Z88.8 Allergy status to other drugs, medicaments and biological substances
CPT/HCPCS: 71045; 80053; 83735; 84484; 85025; 93005; 93010; 99285-25; A9270

== ENCOUNTER 2023-05-11 14:55 | Emergency (ER) | payer MEDICARE, BC ==
[~2023-05-11] VITALS: Ht 162.6 cm; Wt 86.2 kg
[~2023-05-11 14:55] MED LIST changes: +ELIQUIS5 MG PO; +METO100ER PO
[2023-05-11 18:44] LABS: Magnesium, Blood 2.1 mg/dL (1.6-2.4)
[2023-05-11 18:46] LABS: Thyroid Stimulating Hormone 1.77 uIU/mL (0.360-4.800)
[2023-05-11] MEDS ORDERED: Metoprolol Succinate 50 MG TABCR PO ONE (18:50)
[2023-05-11] MEDS ORDERED: Bumetanide 0.25 MG/ML 10ML Vial IV ONE (18:50)
[2023-05-11] MEDS ORDERED: Metoprolol Tartrate 1 MG/ML 5 ML VIAL IV PRN (18:50)
[2023-05-11 20:15] VITALS: BP 129/91
[2023-05-11] MEDS ORDERED: METO50ER PO (20:40)
== END 2023-05-11 21:00 | disposition home or self-care (01) ==
LOC: ER 14:55
PROVIDERS: Student in an Organized Health Care Education/Training Program
DX: I48.91 Unspecified atrial fibrillation (principal); R79.89 Other specified abnormal findings of blood chemistry; R06.02 Shortness of breath; I10 Essential (primary) hypertension; E78.5 Hyperlipidemia, unspecified; E11.9 Type 2 diabetes mellitus without complications; M06.9 Rheumatoid arthritis, unspecified; K21.9 Gastro-esophageal reflux disease without esophagitis; Z79.4 Long term (current) use of insulin; Z79.01 Long term (current) use of anticoagulants; Z79.82 Long term (current) use of aspirin; Z79.52 Long term (current) use of systemic steroids; Z79.899 Other long term (current) drug therapy; Z88.8 Allergy status to other drugs, medicaments and biological substances; Z79.84 Long term (current) use of oral hypoglycemic drugs
CPT/HCPCS: 36415; 71046; 80053; 83735; 83880; 84443; 84484; 93005; 93010; 96374; 96375; 99285-25; A9270

== ENCOUNTER 2023-06-21 23:36 | Inpatient (IN) | payer MEDICARE, BC ==
[~2023-06-21] VITALS: Ht 162.6 cm; Wt 82.3 kg
[~2023-06-21 23:36] MED LIST changes: +METO50ER PO
[2023-06-22 00:20] LABS: BASOPHILS ABSOLUTE AUTO 0.06 K/mm3 (0.00-0.23); BASOPHILS PERCENT AUTO 1 % (0-2); EOSINOPHILS ABSOLUTE AUTO 0.05 K/mm3 (0.00-0.68); EOSINOPHILS PERCENT AUTO 1 % (0-6); Hematocrit 38.3 % (33.0-51.0); Hemoglobin 12.7 g/dL (11.5-16.0); IMMATURE GRAN ABSOLUTE AUTO 0.03 K/mm3 (0.00-0.10); IMMATURE GRAN PERCENT AUTO 0 % (0-1); LYMPHOCYTES ABSOLUTE AUTO 1.04 K/mm3 (0.84-5.20); LYMPHOCYTES PERCENT AUTO 11 % (21-46); MONOCYTES ABSOLUTE AUTO 0.38 K/mm3 (0.16-1.47); MONOCYTES PERCENT AUTO 4 % (4-13); Mean Corpuscular HGB Conc 33.2 g/dL (31.5-36.5); Mean Corpuscular Volume 91 fL (80-100); Mean Platelet Volume 9.5 fL (9.1-12.4); NEUTROPHILS PERCENT AUTO 84 % (41-73); Platelet Count 246 K/mm3 (150-400); RDW Coefficient Variation 13.8 % (11.7-14.2); Red Blood Cell Count 4.23 M/mm3 (3.80-5.20); White Blood Cell Count 9.46 K/mm3 (4.00-11.30)
[2023-06-22 00:44] LABS: Albumin, Blood 3.8 g/dL (3.4-5.0); Albumin/Globulin Ratio 1.3 (0.8-1.8); Bilirubin, Total 0.3 mg/dL (0.1-1.0); Bun/Creatinine Ratio 38.7 (12.0-20.0); Calcium, Blood 9.5 mg/dL (8.5-10.1); Creatinine, Blood 0.91 mg/dL (0.40-1.00); Globulin, Blood 2.9 g/dL (2.2-4.0); Potassium, Blood 4.4 mmol/L (3.5-5.5); Total Protein, Blood 6.7 g/dL (6.4-8.2)
[2023-06-22] MEDS ORDERED: SPIR25 PO (00:47)
[2023-06-22] MEDS ORDERED: METTREX2.5 PO (00:48)
[2023-06-22] MEDS ORDERED: METO50ER PO (00:51)
[2023-06-22] MEDS ORDERED: ALEN70 PO (00:58)
[2023-06-22] MEDS ORDERED: ANASTROZOLE1 M7 PO (00:59)
[2023-06-22] MEDS ORDERED: GLIP5 PO (01:55)
[2023-06-22] MEDS ORDERED: MELO7.5 PO (01:56)
[2023-06-22 01:59] VITALS: BP 134/87
[2023-06-22] MEDS ORDERED: FOLI1 PO (01:59)
[2023-06-22] MEDS ORDERED: HYDROCODONE-AC1 EA19 PO (02:01)
[2023-06-22] MEDS ORDERED: Zithromax Tri-500 MG PO (02:03)
[2023-06-22] MEDS ORDERED: Ondansetron HCl 2 MG / ML 2ML Vial IV PRN (03:05)
[2023-06-22] MEDS ORDERED: Ipratropium/Albuterol SulF 2.5-0.5MG/3 ML Amp INH PRN (03:05)
[2023-06-22] MEDS ORDERED: Azithromycin 500 MG in NS 250 ML IV SCH (03:11)
[2023-06-22] MEDS ORDERED: CefTRIAXone Sodium 1,000 MG in NS 100 ML IV SCH (03:11)
[2023-06-22] MEDS ORDERED: FentaNYL Citrate 50 MCG/ML 2 ML Injection IV PRN (03:25)
[2023-06-22] MEDS ORDERED: Furosemide 10 MG/ML 4ML Vial IV SCH ×2 (04:00→09:00)
[2023-06-22 04:28] LABS: BASOPHILS ABSOLUTE AUTO 0.04 K/mm3 (0.00-0.23); BASOPHILS PERCENT AUTO 1 % (0-2); EOSINOPHILS ABSOLUTE AUTO 0.03 K/mm3 (0.00-0.68); EOSINOPHILS PERCENT AUTO 0 % (0-6); Hematocrit 36.8 % (33.0-51.0); Hemoglobin 12.3 g/dL (11.5-16.0); IMMATURE GRAN ABSOLUTE AUTO 0.02 K/mm3 (0.00-0.10); IMMATURE GRAN PERCENT AUTO 0 % (0-1); LYMPHOCYTES ABSOLUTE AUTO 1.29 K/mm3 (0.84-5.20); LYMPHOCYTES PERCENT AUTO 15 % (21-46); MONOCYTES ABSOLUTE AUTO 0.45 K/mm3 (0.16-1.47); MONOCYTES PERCENT AUTO 5 % (4-13); Mean Corpuscular HGB 29.6 pg (26.0-34.0); Mean Corpuscular HGB Conc 33.4 g/dL (31.5-36.5); Mean Corpuscular Volume 89 fL (80-100); Mean Platelet Volume 9.3 fL (9.1-12.4); NEUTROPHILS PERCENT AUTO 79 % (41-73); Platelet Count 236 K/mm3 (150-400); RDW Coefficient Variation 13.8 % (11.7-14.2); RDW Standard Deviation 44.1 fL (35.1-46.3); Red Blood Cell Count 4.15 M/mm3 (3.80-5.20); White Blood Cell Count 8.83 K/mm3 (4.00-11.30)
[2023-06-22 04:52] LABS: Albumin, Blood 3.8 g/dL (3.4-5.0); Albumin/Globulin Ratio 1.4 (0.8-1.8); Bilirubin, Total 0.5 mg/dL (0.1-1.0); Bun/Creatinine Ratio 42.2 (12.0-20.0); Calcium, Blood 9.3 mg/dL (8.5-10.1); Creatinine, Blood 0.73 mg/dL (0.40-1.00); Globulin, Blood 2.8 g/dL (2.2-4.0); Potassium, Blood 3.9 mmol/L (3.5-5.5); Total Protein, Blood 6.6 g/dL (6.4-8.2)
[2023-06-22] MEDS ORDERED: Alendronate Sodium 70 MG Tablet PO SCH (05:55)
[2023-06-22] MEDS ORDERED: HYDROcodone 5-APAP 325 TAB PO PRN (05:55)
--- NOTE | 2023-06-22 06:36 | NUR ---
T/F AND SUMMARY: REPORT RECIEVED FROM GAEL (DRUM SANDER) AT 0130 AND PT T/F TO ROOM 340 AT 0150. SHE TRANSFERRED SELF FROM RHOBOKEN TO BATHROOM THEN BED AND WAS NOTED TO HAVE STEADY GAIT. PT OBSERVED SOB AT REST BUT IS WORSE W/EXERTION SO SBA IS RECOMMENDED AND PT IS AGREEABLE. SHE WAS ORIENTED TO ROOM AND CALL SYSTEM, IS A/OX4 AND HAS BEEN PLEASANT AND COOPERATIVE W/CARE. PT ADMITTED FOR ONGOING PNM AFTER FAILING OUPATIENT PO ANTIBIOTIC TREATMENT. SHE C/O OF RESPIRATORY DISTRESS SINCE "GETTING SICK AGAIN IN [place]" BUT SAYS SOB AND PLEURITIC PAIN "BECAME UNBEARABLE" IN THE PAST 2 WEEKS. SHE DOESN'T TOLERATE FLAT LYING POSITION AND WAS OBSERVED TO BECOME TACHYPNEIC, DYSPNEIC AND ANXIOUS. BNP IS 841 AND ECHO IS SCHEDULED FOR THIS AM. IV ABX WERE RECEIVED AND FENTANYL 25MCG IV PRN WAS PROVIDED FOR TOLERABLE RELIEF OF BACK/PLEURITIC PAIN. SHE WAS ALSO GIVEN LASIX 4OMG IV PER EMAR W/PUREWIC PLACED FOR URGENCY, FREQUENCY AND HEAVY URINE OUTPUT. LS ARE COARSE W/BEACH, BLOOD TINGED PRODUCTIVE SPUTUM. COVID TEST IS STILL PENDING W/ENHANCED ISO IN PLACE UNTIL RULED OUT. SHE REFUSED TEST INITIALLY ASKING "TO THINK ON IT" BECAUSE SHE WASN'T FEELING WELL OR "UP FOR THE SWAB" AT THE TIME. WILL ENSURE STAFF ARE AWARE. PE STUDY IN ER WAS (-). NO ACUTE CHANGES, VSS/AFEBRILE. WCTM AND REPORT TO DAY RN.
[2023-06-22] MEDS ORDERED: Insulin Human Lispro 100 Units/ML 3ML Syringe SC SCH (07:30)
--- NOTE | 2023-06-22 07:48 | NUR ---
assumed care of pt- Report recieved from night vahe [place]. Pt in bed having an echo done at the start of shift. Attempted flu swab pt refused, will notify . Lung sound coarse and crackly t/o this morning. Denies n/t states she has neuropathy. Sttes she is having rib pain, much worse with pressure, difficulty holding still for the echo. No other s&s of distress noted at this time.
[2023-06-22 08:15] VITALS: BP 124/81
[2023-06-22] MEDS ORDERED: Insulin Glargine-Yfgn 100 Unit/mL 3 ML SYR SC SCH (09:00)
[2023-06-22] MEDS ORDERED: Metoprolol Succinate 50 MG TABCR PO SCH (09:00)
[2023-06-22] MEDS ORDERED: Spironolactone 25 MG Tab PO SCH (09:00)
[2023-06-22] MEDS ORDERED: Aspirin 81 MG Chew PO SCH (09:00)
[2023-06-22] MEDS ORDERED: Anastrozole 1 MG TAB PO SCH (09:00)
[2023-06-22] MEDS ORDERED: Enoxaparin 40 MG/0.4 ML SYR SC SCH (09:00)
[2023-06-22] MEDS ORDERED: Losartan Potassium 25 MG Tab PO SCH (09:00)
[2023-06-22] MEDS ORDERED: Apixaban 5 MG Tab PO SCH (09:00)
[2023-06-22] MEDS ORDERED: Sertraline HCl 50 MG Tab PO SCH (09:00)
--- NOTE | 2023-06-22 10:15 | NUR ---
BEDSIDE GLENNALOW- PT WAS OFFERED WATER BY CUP WITH NO ISSUE, BY STRAW WAS ALSO NO ISSUE, KATIE CRACKERS, KATIE CRACKERS WITH PUDDING, APPLESAUCE AND MILK. PT HAD NO SIGN OF CHOKING OR ASPIRATION. PT TOOK HER MEDS WHOLE WITH WATER WITHOUT DIFFICULTY. AWARE. ORDER RECIEVED FOR DIET.
[2023-06-22 10:36] VITALS: BP 138/83
--- NOTE | 2023-06-22 11:00 | NUR ---
SPOKE TO DR RODRIGUEZ- WHEN MORNING MEDS WERE BEING GIVEN PT STATED SHE TAKES 200MG OF METOPROLOL, HER DAUGHTER WAS AT THE BEDSIDE AND SUPPORTS THAT THE PT TAKES 200MG OF METOPROLOL ONCE A DAY IN THE AM. PPT REFUSED TO TAKE THE ELEQUIS STATING SHE DOES NOT TAKE THAT MED. PT HAD IV LASIX ORDERED AT 80 MG DAILY. SPOKE TO DR RODRIGUEZ THE PT RECIEVED 40MG IV LASIX AT 0340, ORDER RECIEVED TO HOLD TODAYS DOSE OF LASIX, INCREASE THE PT METOPROLOL TO HER STATED HOME DOSE, AND A DIET ORDER WAS RECIEVED.
[2023-06-22] MEDS ORDERED: Metoprolol Succinate 50 MG TABCR PO ONE (11:05)
[2023-06-22 12:55] LABS: Adenovirus Not Detected (NOT DETECT); Bordetella pertussis Not Detected (NOT DETECT); Chlamydophila pneumoniae Not Detected (NOT DETECT); Coronavirus 229E Not Detected (NOT DETECT); Coronavirus HKU1 Not Detected (NOT DETECT); Coronavirus NL63 Not Detected (NOT DETECT); Coronavirus OC43 Not Detected (NOT DETECT); Human Metapneumovirus Not Detected (NOT DETECT); Human Rhinovirus/Enterovirus Not Detected (NOT DETECT); Influenza A/2009-H1 Not Detected (NOT DETECT); Influenza A/H1 Not Detected (NOT DETECT); Influenza A/H3 Not Detected (NOT DETECT); Influenza B Not Detected (NOT DETECT); Mycoplasma pneumoniae Not Detected (NOT DETECT); Parainfluenza Virus 1 Not Detected (NOT DETECT); Parainfluenza Virus 2 Not Detected (NOT DETECT); Parainfluenza Virus 3 Not Detected (NOT DETECT); Parainfluenza Virus 4 Not Detected (NOT DETECT); Respiratory Syncytial Virus Not Detected (NOT DETECT); SARS-Cov-2 (COVID-19), BioFire Not Detected (NOT DETECT)
[2023-06-22 15:51] VITALS: BP 114/86
--- NOTE | 2023-06-22 17:34 | NUR ---
SHIFT SUMMARY- PT ALERT AND ORIENTED, NO ACUTE CHANGE T/O THE SHIFT. SHE HAS HAD EPISODES OF SOB, USUALLY ACCOMPANIED WITH PAIN MED AND BREATHING Tx REQUEST. PT MEDICATED WITH NORCO TWICE. RESP PANEL COMPLETED, NEGATIVE RESULTS. ISOLATION DC'D. PT DAUGHTER IS INVOLVED IN HER CARE AND WAS PRESENT WHEN THE DR CAME TO SEE THE PT. HE EXPLAINED TO HER THE IV ABX WERE DC'D IN FAVOR OF DIURIESING THE PT THE TESTS ARE LEANING TOWARDS FLUID OVERLOAD RATHER THAN PNEUMONIA. IV LASIX WAS GIVEN THIS AM AT 0340 SO 9 AM DOSE WAS HELD, SEE PERVIOUS NOTES FOR DETAILS. PT IN BED, CALL LIGHT IN REACH NO S&S OF DISTRESS NOTED.
[2023-06-22 20:06] VITALS: BP 135/97
[2023-06-23 02:43] VITALS: BP 124/105
--- NOTE | 2023-06-23 05:10 | NUR ---
PT ALERT AND ORIENTED WITH QUICK VERBAL RESPONSE. PT AMBULATED INDEPENDANTLY WITH NO EPISODES OF INCONTINENCE. PT COMPLAINED OF CIRCUMFERENTIAL PAIN JUST BELOW THE BREAST LINE, MEDICATED PER EMAR. PT SLEPT FOR ROUGHLY 4 HOURS BUT WAS AWOKEN DUE TO SOB. PT WAS GIVEN A BREATHING TREATMENT BY RT WITH IMPROVMENT IN WORK OF BREATHING. PT COMPLAINED OF RISING CICUMFRETIAL PAIN. PT STATED IT WAS A 7 AND WAS SHARP. PT MEDICATED PER EMAR BUT REMAINED AWAKE THE REST OF THE NIGHT. PT PROVIDED WITH FRESH WATER. PT DENIED ANY FURTHER NEEDS.
[2023-06-23 05:13] LABS: BASOPHILS ABSOLUTE AUTO 0.07 K/mm3 (0.00-0.23); BASOPHILS PERCENT AUTO 1 % (0-2); EOSINOPHILS ABSOLUTE AUTO 0.22 K/mm3 (0.00-0.68); EOSINOPHILS PERCENT AUTO 2 % (0-6); Hematocrit 39.5 % (33.0-51.0); Hemoglobin 13.2 g/dL (11.5-16.0); IMMATURE GRAN ABSOLUTE AUTO 0.04 K/mm3 (0.00-0.10); IMMATURE GRAN PERCENT AUTO 0 % (0-1); LYMPHOCYTES ABSOLUTE AUTO 1.52 K/mm3 (0.84-5.20); LYMPHOCYTES PERCENT AUTO 15 % (21-46); MONOCYTES ABSOLUTE AUTO 0.82 K/mm3 (0.16-1.47); MONOCYTES PERCENT AUTO 8 % (4-13); Mean Corpuscular HGB 29.9 pg (26.0-34.0); Mean Corpuscular HGB Conc 33.4 g/dL (31.5-36.5); Mean Corpuscular Volume 90 fL (80-100); Mean Platelet Volume 9.5 fL (9.1-12.4); NEUTROPHILS ABSOLUTE AUTO 7.57 K/mm3 (1.96-9.15); NEUTROPHILS PERCENT AUTO 74 % (41-73); Platelet Count 252 K/mm3 (150-400); RDW Standard Deviation 45.1 fL (35.1-46.3); Red Blood Cell Count 4.41 M/mm3 (3.80-5.20); White Blood Cell Count 10.24 K/mm3 (4.00-11.30)
[2023-06-23 05:49] LABS: Bun/Creatinine Ratio 37.4 (12.0-20.0); Calcium, Blood 9.5 mg/dL (8.5-10.1); Creatinine, Blood 0.62 mg/dL (0.40-1.00); Potassium, Blood 3.9 mmol/L (3.5-5.5)
--- NOTE | 2023-06-23 05:54 | NUR ---
CTA/DANCE INSTRUCTOR SHIFT SUMMARY IN DANCE INSTRUCTOR NOTES
[2023-06-23 07:43] VITALS: BP 137/98
[2023-06-23 08:22] VITALS: BP 133/93
[2023-06-23] MEDS ORDERED: Atorvastatin 40 MG Tab PO SCH (09:00)
[2023-06-23] MEDS ORDERED: PredniSONE 5 MG Tab PO SCH (09:00)
[2023-06-23] MEDS ORDERED: Metoprolol Succinate 50 MG TABCR PO SCH (09:00)
[2023-06-23 09:23] VITALS: BP 117/84
--- NOTE | 2023-06-23 09:27 | NUR ---
SPOKE TO DR RODRIGUEZ- PT SBP AFTER THE LASIX IS 117. RECIEVED ORDER TO GIVE PO METOPROLOL AAND HOLD LOSARTAN AND SSPIRONOLACTONE TODAY.
[2023-06-23 15:36] VITALS: BP 128/78
--- NOTE | 2023-06-23 19:10 | NUR ---
SHIFT SUMMARY- PT HAS HAD NO ACUTE ISSUES T/O THE DAY TODAY. SHE RECIEVED HER IV LASIX THIS MORNING AFTER HER NEW IV WAS PLACED. BP WAS DOWN TO 117 AFTER THE LASIX SOME MEDS WERE HELD PER DR RODRIGUEZ. PT HAD A SHOWER TODAY AND SHE STATED SHE HAD A LARGE BM AT THE TIME OF BEDSIDE REPORT. PT HAS BEEN INDEPENDENT IN THE ROOM SINCE HER SHOWER. PT SITTING AT THE EOB AFTER BEDSIDE REPORT NO S&S OF DISTRESS.
[2023-06-23 19:38] VITALS: BP 131/99
[2023-06-23] MEDS ORDERED: Insulin Human Lispro 100 Units/ML 3ML Syringe SC SCH (21:00)
--- NOTE | 2023-06-24 04:37 | NUR ---
SHIFT SUMMARY. PATIENT IS ALERT ON AND ORIENTED. PATIENT [place], WEARS HEARING AIDES AND GLASSES. PATIENT REPORTS SHE HAD A BM DURING THE DAY. PATIENT TOLERATED HER PO MEDICATIONS WITH WATER. PATIENT SLEPT WELL T/O NIGHT. PATIENT C/O PAIN; PAIN ASSESSED AND MEDICATED PER EMAR X1. PATIENTS BED IS LOCKED IN THE LOWEST POSITION [facility] CALL LIGHT IN REACH. NO S/S OF DISTRESS NOTED. CARE IS ONGOING.
[2023-06-24 04:41] VITALS: BP 134/88
[2023-06-24 07:27] VITALS: BP 142/84
[2023-06-24] MEDS ORDERED: Isosorbide Mononitrate 30 MG TABCR PO SCH (11:00)
[2023-06-24] MEDS ORDERED: Digoxin 0.25 MG Tab PO SCH (11:00)
[2023-06-24] MEDS ORDERED: Metolazone 2.5 MG Tab PO SCH (11:00)
[2023-06-24 16:04] VITALS: BP 111/85
--- NOTE | 2023-06-24 16:29 | NUR ---
SHIFT SUMMARY PT AxOx4. PLEASANT AND COOPERATIVE WITH CARE. PT REPORTED DYSPNEA, ESPECIALLY WITH EXERTION THIS SHIFT. LUNG SOUNDS FINE CRACKLES IN DAVID BASES. PT PARTICIPATED IN PHYS THERAPY TODAY. SHE IS INDEPENDENT IN THE ROOM. PT WAS GIVEN IV DIUERETICS THIS SHIFT ALONG WITH STARTING NEW CARDIAC MEDS. PT TOLERATED WELL. VITALS REVIEWED. PT REPORTED PAIN LATE IN AFTERNOON OF PLEURITIC/BACK REGIONS. PT REPORTS THIS A CHRONIC PAIN, BUT FELT BECAUSE SHE DIDN'T TAKE ANY PAIN MEDS ALL DAY THAT IT WAS DIFFICULT TO CATCH UP ON. PT WAS PROVIDED PAIN MEDICATION PER EMAR AT THAT TIME WITH REPORTED DECREASE IN PAIN. TELE ORDERED TODAY, PT RUNNING AFIB AT 103 PER MEDICAL I D SALES. PT IS CURRENTLY RESTING IN BED WITH CALL LIGHT IN REACH. DENIES ANY NEEDS AT THIS TIME.
[2023-06-24] MEDS ORDERED: Bumetanide 0.25 MG/ML 4ML ViaL IV SCH (18:00)
[2023-06-24] MEDS ORDERED: Spironolactone 25 MG Tab PO SCH (18:00)
[2023-06-24 18:23] LABS: Bun/Creatinine Ratio 39.2 (12.0-20.0); Calcium, Blood 9.8 mg/dL (8.5-10.1); Creatinine, Blood 0.69 mg/dL (0.40-1.00); Potassium, Blood 3.9 mmol/L (3.5-5.5)
[2023-06-24 19:27] VITALS: BP 116/74
[2023-06-25 03:28] VITALS: BP 134/85
[2023-06-25 04:51] LABS: BASOPHILS ABSOLUTE AUTO 0.06 K/mm3 (0.00-0.23); BASOPHILS PERCENT AUTO 1 % (0-2); EOSINOPHILS ABSOLUTE AUTO 0.21 K/mm3 (0.00-0.68); EOSINOPHILS PERCENT AUTO 2 % (0-6); Hematocrit 40.3 % (33.0-51.0); Hemoglobin 13.7 g/dL (11.5-16.0); IMMATURE GRAN ABSOLUTE AUTO 0.04 K/mm3 (0.00-0.10); IMMATURE GRAN PERCENT AUTO 1 % (0-1); LYMPHOCYTES ABSOLUTE AUTO 1.36 K/mm3 (0.84-5.20); LYMPHOCYTES PERCENT AUTO 16 % (21-46); MONOCYTES ABSOLUTE AUTO 0.78 K/mm3 (0.16-1.47); MONOCYTES PERCENT AUTO 9 % (4-13); Mean Corpuscular HGB 29.9 pg (26.0-34.0); Mean Corpuscular Volume 88 fL (80-100); Mean Platelet Volume 9.4 fL (9.1-12.4); NEUTROPHILS ABSOLUTE AUTO 6.22 K/mm3 (1.96-9.15); NEUTROPHILS PERCENT AUTO 72 % (41-73); Platelet Count 267 K/mm3 (150-400); RDW Coefficient Variation 13.8 % (11.7-14.2); RDW Standard Deviation 43.5 fL (35.1-46.3); Red Blood Cell Count 4.58 M/mm3 (3.80-5.20); White Blood Cell Count 8.67 K/mm3 (4.00-11.30)
[2023-06-25 05:10] LABS: Albumin, Blood 3.9 g/dL (3.4-5.0); Albumin/Globulin Ratio 1.4 (0.8-1.8); Bilirubin, Total 0.8 mg/dL (0.1-1.0); Bun/Creatinine Ratio 34.4 (12.0-20.0); Calcium, Blood 9.6 mg/dL (8.5-10.1); Creatinine, Blood 0.73 mg/dL (0.40-1.00); Globulin, Blood 2.7 g/dL (2.2-4.0); Potassium, Blood 3.1 mmol/L (3.5-5.5); Total Protein, Blood 6.6 g/dL (6.4-8.2)
--- NOTE | 2023-06-25 05:19 | NUR ---
PT A/OX4, COOPERATIVE WITH PLEASANT AFFECT. VS WNL, CONTINUES TO REPORT DYSPNEA WITH EXERTION. SKIN INTACT; RASH UNDER BREASTS AND IN GROIN AREA CLEARED. IV IN LFA, FLUSHES FREELY, DRESSING CDI. PT HAS VOIDED 1025 CC IN PAST 12 HRS. PAIN WELL CONTROLLED WITH PRN NORCO Q6. NO INSULIN REQUIRED LAST NIGHT. LASIX D/ISMAEL AND BUMEX ADDED YESTERDAY. PT TOOK HER ELIQUIS LAST NIGHT BUT STATES SHE WISHES TO SPEAK WITH PROVIDER ABOUT D/CING IT TODAY. STATES SHE DOES NOT WANT TO TAKE IT DUE TO COST. PT IS INDEPENDENT, SEVERLY POINT LAY [place] AND WEARS HEARING AIDS. PT HAS SLEPT WELL THIS NIGHT. BED IN LOW POSITION AND CALL LIGHT WITHIN REACH.
[2023-06-25] MEDS ORDERED: Potassium Chloride 40 MEQ in NS 250 ML IV ONE (05:55)
[2023-06-25] MEDS ORDERED: NS 250 ML IV PRN (06:20)
[2023-06-25 07:44] VITALS: BP 129/84
[2023-06-25] MEDS ORDERED: Spironolactone 50 MG Tab PO SCH (09:00)
[2023-06-25 15:33] VITALS: BP 114/76
--- NOTE | 2023-06-25 18:30 | NUR ---
SHIFT SUMMARY PT INDEPENDENT IN ROOM. REPORTS CONTINUED PAIN IN A BAND AROUND DIAPHRAGM AREA. FEELS LIKE SHE HASN'T LOST ANY FLUID WT ESPECIALLY AROUND THAT AREA. DID LET PT KNOW HER WT IS GOING DOWN SO SHE IS LOOSING SOME FLUID WT. NO APPARENT SOB BUT REPORTS SOB HAS ONLY IMPROVED A TINY AMOUNT SINCE ARRIVAL TO HOSPITAL. PT MONITERING HER FLUID INTAKE SINCE SEEING MD TODAY.
[2023-06-25 20:58] VITALS: BP 128/78
[2023-06-26 03:39] VITALS: BP 115/79
[2023-06-26 04:34] LABS: BASOPHILS ABSOLUTE AUTO 0.08 K/mm3 (0.00-0.23); BASOPHILS PERCENT AUTO 1 % (0-2); EOSINOPHILS ABSOLUTE AUTO 0.23 K/mm3 (0.00-0.68); EOSINOPHILS PERCENT AUTO 2 % (0-6); Hematocrit 42.9 % (33.0-51.0); Hemoglobin 14.8 g/dL (11.5-16.0); IMMATURE GRAN ABSOLUTE AUTO 0.04 K/mm3 (0.00-0.10); IMMATURE GRAN PERCENT AUTO 0 % (0-1); LYMPHOCYTES ABSOLUTE AUTO 1.84 K/mm3 (0.84-5.20); LYMPHOCYTES PERCENT AUTO 17 % (21-46); MONOCYTES ABSOLUTE AUTO 1.02 K/mm3 (0.16-1.47); MONOCYTES PERCENT AUTO 9 % (4-13); Mean Corpuscular HGB 29.8 pg (26.0-34.0); Mean Corpuscular HGB Conc 34.5 g/dL (31.5-36.5); Mean Corpuscular Volume 86 fL (80-100); Mean Platelet Volume 9.5 fL (9.1-12.4); NEUTROPHILS ABSOLUTE AUTO 7.63 K/mm3 (1.96-9.15); NEUTROPHILS PERCENT AUTO 70 % (41-73); Platelet Count 289 K/mm3 (150-400); RDW Coefficient Variation 13.9 % (11.7-14.2); RDW Standard Deviation 42.6 fL (35.1-46.3); Red Blood Cell Count 4.97 M/mm3 (3.80-5.20); White Blood Cell Count 10.84 K/mm3 (4.00-11.30)
[2023-06-26 04:56] LABS: Bun/Creatinine Ratio 43.5 (12.0-20.0); Calcium, Blood 10.3 mg/dL (8.5-10.1); Creatinine, Blood 0.85 mg/dL (0.40-1.00); Potassium, Blood 3.4 mmol/L (3.5-5.5)
[2023-06-26 07:27] VITALS: BP 109/81
--- NOTE | 2023-06-26 07:34 | NUR ---
SENIOR DESIGNER/ART DIRECTOR SUMMARY NO ACUTE CHANGES. PT A/OX4. ABLE TO MAKE NEEDS KNOWN. PT RCVD NORCO Q6 PER EMAR FOR ABD/BAND PAIN. CALL LIGHT IN REACH.
[2023-06-26] MEDS ORDERED: Potassium Chloride 20 MEQ/15 ML UDC PO ONE (07:45)
[2023-06-26] MEDS ORDERED: Methotrexate Sod 2.5 MG Tab PO SCH (09:00)
[2023-06-26 12:52] VITALS: BP 105/68
[2023-06-26] MEDS ORDERED: Digoxin 0.25 MG Tab PO SCH (13:00)
[2023-06-26] MEDS ORDERED: dilTIAZem HCL 120 MG CAP.CD PO SCH (13:00)
[2023-06-26 15:14] VITALS: BP 109/69
--- NOTE | 2023-06-26 18:44 | NUR ---
SHIFT SUMMARY PT INDEPENDENT IN ROOM. SPOKE WITH DR. CALLAHAN ABOUT PTS HEART RATE SUSTAINING OVER 100 THROUGH THE MORNING DESPITE HER SCHEDULED MORNING MEDS. NEW MEDS ORDERED AND GIVEN WITH HEART RATE DROPPING TO 90'S DURING THE AFTERNOON. DAUGHTER IN TO VISIT FOR A TIME THIS AFTERNOON. MEDICATED FOR PAIN ONLY ONCE TODAY DUE TO PT STATING HER PAIN SEEMED BETTER THIS MORNING AND DIDN'T WANT TO TAKE IT TIL SHE NEEDED IT. PRUNE JUICE WITH BUTTER AND APPLE JUICE GIVEN THIS MORNING DUE TO NO BM BUT HASN'T HAD A BM YET. APPEARED MORE SOB WITH HEART RATE ELEVATED LIKE IT WAS THIS MORNING. SHOWER HELD AND SPONGE BATH GIVEN.
[2023-06-26 20:39] VITALS: BP 129/87
[2023-06-26] MEDS ORDERED: Bisacodyl 10 MG Supp PR PRN (20:45)
[2023-06-26] MEDS ORDERED: Magnesium Hydroxide Conc 10 ML UDC PO PRN (20:45)
[2023-06-26] MEDS ORDERED: Docusate Sodium 100 MG Cap PO SCH (21:00)
[2023-06-26] MEDS ORDERED: Sennosides 8.6 MG Tab PO SCH (21:00)
[2023-06-27 02:59] VITALS: BP 137/75
[2023-06-27 06:01] LABS: BASOPHILS ABSOLUTE AUTO 0.06 K/mm3 (0.00-0.23); BASOPHILS PERCENT AUTO 1 % (0-2); EOSINOPHILS ABSOLUTE AUTO 0.12 K/mm3 (0.00-0.68); EOSINOPHILS PERCENT AUTO 1 % (0-6); Hemoglobin 14.9 g/dL (11.5-16.0); IMMATURE GRAN ABSOLUTE AUTO 0.08 K/mm3 (0.00-0.10); IMMATURE GRAN PERCENT AUTO 1 % (0-1); LYMPHOCYTES ABSOLUTE AUTO 1.19 K/mm3 (0.84-5.20); LYMPHOCYTES PERCENT AUTO 12 % (21-46); MONOCYTES ABSOLUTE AUTO 0.99 K/mm3 (0.16-1.47); MONOCYTES PERCENT AUTO 10 % (4-13); Mean Corpuscular HGB Conc 34.7 g/dL (31.5-36.5); Mean Corpuscular Volume 87 fL (80-100); Mean Platelet Volume 9.5 fL (9.1-12.4); NEUTROPHILS ABSOLUTE AUTO 7.95 K/mm3 (1.96-9.15); NEUTROPHILS PERCENT AUTO 76 % (41-73); Platelet Count 287 K/mm3 (150-400); RDW Coefficient Variation 13.9 % (11.7-14.2); RDW Standard Deviation 43.1 fL (35.1-46.3); Red Blood Cell Count 4.97 M/mm3 (3.80-5.20); White Blood Cell Count 10.39 K/mm3 (4.00-11.30)
[2023-06-27 06:33] LABS: Bun/Creatinine Ratio 50.1 (12.0-20.0); Calcium, Blood 10.1 mg/dL (8.5-10.1); Creatinine, Blood 0.94 mg/dL (0.40-1.00); Potassium, Blood 3.4 mmol/L (3.5-5.5)
--- NOTE | 2023-06-27 06:41 | NUR ---
JAVA LEAD ENGINEER SUMMARY PT A/OX4. PT C/O OF CONSTIPATION. NEW ORDERS FOR BOWEL CARE AT START OF SHIFT. ADMINISTERED STOOL SOFTNER AND MILK OF MAG. PT HAD LARGE BM THIS MORNING. PT ON TELE; PHONE CALL FROM [facility] TO ADVISE PT ALERTING TO ST DEPRESSION. PT ASTYMPTOMATIC--DENIES CP OR SOB. HR HAS RANGED FROM 70'S-90'S T/O THE NIGHT; AFIB, BBB, MULTIFOCAL PVCS. PT ON FLUID RESTRICTION. DAILY WEIGHT COMPLETE THIS MORNING. PT INDEPENDENT IN THE ROOM. ABLE TO MAKE NEEDS KNOWN.
[2023-06-27 07:29] VITALS: BP 127/90
[2023-06-27] MEDS ORDERED: Lactulose 20 GM/30 ML UDC PO ONE (12:00)
[2023-06-27 15:08] VITALS: BP 118/59
--- NOTE | 2023-06-27 18:07 | NUR ---
SUMMARY- pt is AAOX4, she ambulates indepedantly to the commode. New order of one time dose of lactulose admin pt stated no bm this shift. pt requested pain medication in the am. pain managed this shift. pt is on a fluid restriction and compliant. no acute events. pt on rm air. call light is within reach.
[2023-06-27 19:26] VITALS: BP 123/66
[2023-06-28] MEDS ORDERED: Potassium Chloride 20 MEQ/15 ML UDC PO SCH (01:00)
[2023-06-28 02:15] VITALS: BP 122/76
--- NOTE | 2023-06-28 04:08 | NUR ---
FIELD SUPPORT SPECIALIST SUMARY PT A/OX4. NO ACTUE EVENTS. GAVE PT MILK OF MAG PRN WITH 2100 MEDS; PT HAD ANOTHER LARGE BOWEL MOVEMENT; PEPORTS IMPROVED FEELING AND SOME PAIN RELIEF WITH RESOLVING CONSTIPATION. NEW ORDER FOR POTASSIUM SUSPENSION--LAST POTASSIUM LAB AT 3.4. PT ON SLIDING SCALE FOR HS DOSING; PT 2100 CBG 257; ONE UNIT ORDERED PER CS; PT REFUSED THE ONE UNIT OF INSULIN. PT REMAINS ON A 1500 FLUID RESTRICTION WITH I & O'S MONITORING. OBTAINED WEIGHT THIS MORNING ON STANDING SCALE; PT IS DOWN 3.98LBS SINCE ADMISSION. PT IS ON TELE IN AFIB WITH RATE FLUCTUATING FROM 60-90'S. PT ABLE TO MAKE NEEDS KNOWN. CALL LIGHT IN REACH.
[2023-06-28 07:27] VITALS: BP 122/83
[2023-06-28] MEDS ORDERED: Insulin Glargine-Yfgn 100 Unit/mL 3 ML SYR SC SCH (09:00)
[2023-06-28] MEDS ORDERED: Bumetanide 1 MG Tab PO SCH (09:00)
[2023-06-28] MEDS ORDERED: GlipiZIDE 5 MG TabCR PO SCH (14:00)
[2023-06-28] MEDS ORDERED: MetFORMIN HCl 500 mg PO SCH (14:00)
[2023-06-28 15:20] VITALS: BP 118/57
--- NOTE | 2023-06-28 16:34 | NUR ---
PT IS A/OX4, [place]OP[place]. PLEASANT AND COOPERATIVE. THE PT IS UP IND TO THE BATHROOM. THE PT DENIED ANY PAIN, SOB, N/V SO FAR T/O THIS SHIFT. THE THE PTS DAUGHTER WAS AT THE BEDSIDE FOR MOST OF THE DAY. CALL LIGHT IN REACH. BED IN THE LOW POSITION
[2023-06-28 19:49] VITALS: BP 125/59
--- NOTE | 2023-06-29 04:29 | NUR ---
WAREHOUSE INSULATION WORKER SUMMARY PT A&O X4, PLEASANT. PT MEDICATED FOR ABDOMINAL/BACK PAIN WITH GOOD RELIEF. TELE AFIB 81 WITH OCCASIONAL PVC'S. PT SLEPT THROUGH THE NIGHT. NO COUGING NOTED. LUNGS CLEAR-DIMINISHED. NO ACUTE CHANGES OVERNIGHT. 06/29/23 LENARD GUERRA RN
[2023-06-29 05:06] VITALS: BP 123/68
[2023-06-29 05:33] LABS: BASOPHILS ABSOLUTE AUTO 0.08 K/mm3 (0.00-0.23); BASOPHILS PERCENT AUTO 1 % (0-2); EOSINOPHILS ABSOLUTE AUTO 0.18 K/mm3 (0.00-0.68); EOSINOPHILS PERCENT AUTO 2 % (0-6); Hematocrit 43.2 % (33.0-51.0); IMMATURE GRAN ABSOLUTE AUTO 0.06 K/mm3 (0.00-0.10); IMMATURE GRAN PERCENT AUTO 1 % (0-1); LYMPHOCYTES ABSOLUTE AUTO 1.38 K/mm3 (0.84-5.20); LYMPHOCYTES PERCENT AUTO 13 % (21-46); MONOCYTES ABSOLUTE AUTO 0.88 K/mm3 (0.16-1.47); MONOCYTES PERCENT AUTO 8 % (4-13); Mean Corpuscular HGB 29.6 pg (26.0-34.0); Mean Corpuscular HGB Conc 34.7 g/dL (31.5-36.5); Mean Corpuscular Volume 85 fL (80-100); Mean Platelet Volume 9.5 fL (9.1-12.4); NEUTROPHILS ABSOLUTE AUTO 8.13 K/mm3 (1.96-9.15); NEUTROPHILS PERCENT AUTO 76 % (41-73); Platelet Count 298 K/mm3 (150-400); RDW Coefficient Variation 13.7 % (11.7-14.2); RDW Standard Deviation 42.3 fL (35.1-46.3); Red Blood Cell Count 5.06 M/mm3 (3.80-5.20); White Blood Cell Count 10.71 K/mm3 (4.00-11.30)
[2023-06-29 05:44] LABS: Albumin, Blood 4.3 g/dL (3.4-5.0); Albumin/Globulin Ratio 1.4 (0.8-1.8); Bilirubin, Total 1.1 mg/dL (0.1-1.0); Bun/Creatinine Ratio 60.4 (12.0-20.0); Calcium, Blood 10.4 mg/dL (8.5-10.1); Creatinine, Blood 1.06 mg/dL (0.40-1.00); Potassium, Blood 3.7 mmol/L (3.5-5.5); Total Protein, Blood 7.3 g/dL (6.4-8.2)
[2023-06-29 09:34] VITALS: BP 139/77
[2023-06-29 15:16] VITALS: BP 125/68
--- NOTE | 2023-06-29 17:12 | NUR ---
PATIENT A/OX4, UP INDEPENDENTLY IN ROOM. LUNGS CLEAR/DIMIISHED THROUGHOUT, MAINTAINING SATS >90% ON RA. ACHS BLOOD SUGARS, TOLERATING ADA DIET. A-FLUTTER ON TELE WITH A BBB IN THE 80'S. PATIENT DENIES ANY CP OR PRESSURE. NORCO GIVEN X1 TODAY WITH STATED RELIEF OF ABDOMINAL/RIB PAIN. PATIENT COMPLIANT WITH 1.5L FLUID RESTRICTION. NO NEW CONCERNS THIS SHIFT. PATIENT LIKELY TO DC TOMORROW.
[2023-06-29 20:12] VITALS: BP 119/77
[2023-06-30 04:10] VITALS: BP 139/77
--- NOTE | 2023-06-30 04:28 | NUR ---
PT ALERT AND ORIENTED X 4 ON ASSESSMENT, PT INDEPENDENT TO BATHROOM. PT WAS SLEEPY AT START OF SHIFT, REQUESTED MEDS AND TO GO TO SLEEP. PT DENIES NEW COMPLAINTS, NO CHANGES TO CONDITION, PT SLEPT T/O SHIFT AT LOW POSITION WITH CALL LIGHT IN REACH.
[2023-06-30 05:57] LABS: BASOPHILS ABSOLUTE AUTO 0.08 K/mm3 (0.00-0.23); BASOPHILS PERCENT AUTO 1 % (0-2); EOSINOPHILS ABSOLUTE AUTO 0.13 K/mm3 (0.00-0.68); EOSINOPHILS PERCENT AUTO 1 % (0-6); Hematocrit 44.4 % (33.0-51.0); Hemoglobin 15.4 g/dL (11.5-16.0); IMMATURE GRAN ABSOLUTE AUTO 0.07 K/mm3 (0.00-0.10); IMMATURE GRAN PERCENT AUTO 1 % (0-1); LYMPHOCYTES ABSOLUTE AUTO 1.64 K/mm3 (0.84-5.20); LYMPHOCYTES PERCENT AUTO 14 % (21-46); MONOCYTES ABSOLUTE AUTO 0.97 K/mm3 (0.16-1.47); MONOCYTES PERCENT AUTO 8 % (4-13); Mean Corpuscular HGB 30.1 pg (26.0-34.0); Mean Corpuscular HGB Conc 34.7 g/dL (31.5-36.5); Mean Corpuscular Volume 87 fL (80-100); NEUTROPHILS ABSOLUTE AUTO 8.99 K/mm3 (1.96-9.15); NEUTROPHILS PERCENT AUTO 76 % (41-73); Platelet Count 310 K/mm3 (150-400); RDW Coefficient Variation 13.7 % (11.7-14.2); RDW Standard Deviation 42.8 fL (35.1-46.3); Red Blood Cell Count 5.12 M/mm3 (3.80-5.20); White Blood Cell Count 11.88 K/mm3 (4.00-11.30)
[2023-06-30 07:11] VITALS: BP 120/66
[2023-06-30] MEDS ORDERED: GlipiZIDE 5 MG TabCR PO SCH (08:00)
--- NOTE | 2023-06-30 12:50 | NUR ---
Initial palliative care consult: Ashlie is an 87 year old lady with a history of DM type 2, rheumatoid arthritis, HTN, depression, hyperlipidemia, a-fib. She was admitted on 06/21/23 with pneumonia. Ashlie was up in her room independently when this typewriter ribbon winder entered the room. She states she is looking forward to going home this afternoon when her granddaughter comes to pick her up. She reports that she is feeling much better than she was when she arrived. She lives alone and has family (dtr, Yris and Naila vernon) who come and check in on her daily. She states that she is able to manage all of her own ADLSs at this time. She states that Yris helps her with her medications. She reports that she writes down her medications to make it easier for her to manage them. This visit kept brief as pt is anxious to go home and her lunch arrived when this typewriter ribbon winder was present. Pt denies any needs at this time.
[2023-06-30] MEDS ORDERED: DILT120 PO (14:09)
[2023-06-30] MEDS ORDERED: DOCU100 PO (14:10)
[2023-06-30] MEDS ORDERED: HUMALOG KW100 UNIT/1 SC (14:11)
[2023-06-30] MEDS ORDERED: Isosorbide Mono30 MG PO (14:12)
[2023-06-30] MEDS ORDERED: IPRAT-ALBUT 0.5-3 ML INH (14:12)
[2023-06-30] MEDS ORDERED: PRED5 PO (14:13)
[2023-06-30] MEDS ORDERED: POTA20LUD PO (14:13)
[2023-06-30] MEDS ORDERED: SENN187 PO (14:14)
--- NOTE | 2023-06-30 14:40 | NUR ---
PATIENT D/C'D TO HOME WITH GRANDDAUGHTER. D/C INSTRUCTIONS AND EDUCATION DISCUSSED WITH PATIENT AND COPY PROVIDED. RX MEDICATIONS FAXED TO [facility] [address]. PATIENT DENIES ANY FURTHER QUESTIONS AND CONCERNS.
[2023-06-30 17:28] LABS: Bun/Creatinine Ratio 64.6 (12.0-20.0); Calcium, Blood 10.7 mg/dL (8.5-10.1); Creatinine, Blood 1.13 mg/dL (0.40-1.00); Potassium, Blood 3.7 mmol/L (3.5-5.5)
== END 2023-06-30 14:40 | disposition home or self-care (01) | DRG 291 ==
LOC: ER 23:36 → MEDS 23:37
PROVIDERS: Emergency Medicine; Hospitalist; Internal Medicine; ADMIT Internal Medicine
DX: I11.0 Hypertensive heart disease with heart failure (principal); I50.23 Acute on chronic systolic (congestive) heart failure; J18.9 Pneumonia, unspecified organism; E87.1 Hypo-osmolality and hyponatremia; I48.20 Chronic atrial fibrillation, unspecified; M06.9 Rheumatoid arthritis, unspecified; K21.9 Gastro-esophageal reflux disease without esophagitis; E78.5 Hyperlipidemia, unspecified; E87.6 Hypokalemia; G89.4 Chronic pain syndrome; E11.65 Type 2 diabetes mellitus with hyperglycemia; F41.3 Other mixed anxiety disorders; Z96.651 Presence of right artificial knee joint; Z85.3 Personal history of malignant neoplasm of breast; Z88.8 Allergy status to other drugs, medicaments and biological substances; Z86.16 Personal history of COVID-19; Z90.49 Acquired absence of other specified parts of digestive tract; Z90.89 Acquired absence of other organs; Z90.710 Acquired absence of both cervix and uterus; Z79.01 Long term (current) use of anticoagulants; Z79.4 Long term (current) use of insulin; Z79.82 Long term (current) use of aspirin; Z79.899 Other long term (current) drug therapy
CPT/HCPCS: 0202U; 36415; 71046; 71260; 72070; 80048; 80053; 82947; 83735; 83880; 84132; 84145; 84484; 85025; 93306; 94640; 94664; 94760; 96374; 96375; 96376; 97116; 97161; 99285-25; A9270; G0378; J0456; J0696; J1815; J1940; J3010; J3480; J7050; J7512; J8610; Q9967

== ENCOUNTER 2023-12-08 14:34 | Observation (INO) | payer MEDICARE, BC ==
[~2023-12-08] VITALS: Ht 162.6 cm; Wt 45.6 kg
[~2023-12-08 14:34] MED LIST changes: +DILT120 PO; +DOCU100 PO; +HUMALOG KW100 UNIT/1 SC; +HYDROCODONE-AC1 EA19 PO; +IPRAT-ALBUT 0.5-3 ML INH; +Isosorbide Mono30 MG PO; +POTA20LUD PO; +SENN187 PO; +SPIR25 PO; +Zithromax Tri-500 MG PO
[2023-12-08 15:33] LABS: BASOPHILS ABSOLUTE AUTO 0.07 K/mm3 (0.00-0.23); BASOPHILS PERCENT AUTO 1 % (0-2); EOSINOPHILS ABSOLUTE AUTO 0.08 K/mm3 (0.00-0.68); EOSINOPHILS PERCENT AUTO 1 % (0-6); Hematocrit 44.8 % (33.0-51.0); Hemoglobin 14.8 g/dL (11.5-16.0); IMMATURE GRAN ABSOLUTE AUTO 0.03 K/mm3 (0.00-0.10); IMMATURE GRAN PERCENT AUTO 0 % (0-1); LYMPHOCYTES ABSOLUTE AUTO 1.24 K/mm3 (0.84-5.20); LYMPHOCYTES PERCENT AUTO 14 % (21-46); MONOCYTES ABSOLUTE AUTO 0.68 K/mm3 (0.16-1.47); MONOCYTES PERCENT AUTO 8 % (4-13); Mean Corpuscular HGB 28.8 pg (26.0-34.0); Mean Corpuscular Volume 87 fL (80-100); Mean Platelet Volume 9.8 fL (9.1-12.4); NEUTROPHILS PERCENT AUTO 76 % (41-73); Platelet Count 266 K/mm3 (150-400); RDW Coefficient Variation 12.3 % (11.7-14.2); RDW Standard Deviation 39.3 fL (35.1-46.3); Red Blood Cell Count 5.13 M/mm3 (3.80-5.20)
[2023-12-08 15:50] LABS: Albumin, Blood 3.6 g/dL (3.4-5.0); Albumin/Globulin Ratio 1.3 (0.8-1.8); Bilirubin, Total 0.6 mg/dL (0.1-1.0); Creatinine, Blood 0.59 mg/dL (0.40-1.00); Globulin, Blood 2.8 g/dL (2.2-4.0); Total Protein, Blood 6.4 g/dL (6.4-8.2)
[2023-12-08] MEDS ORDERED: HydrALAZINE HCl 20 MG / ML 1ML Vial IV ONE (18:10)
[2023-12-08] MEDS ORDERED: Prochlorperazine Edisylate 10 mg Vial IV ONE (19:20)
[2023-12-08] MEDS ORDERED: Acetaminophen 325 MG TABLET PO ONE (19:20)
[2023-12-08] MEDS ORDERED: Labetalol HCL 5 MG/ML 4ML Injection (Single Dose) IV ONE (20:00)
[2023-12-08] MEDS ORDERED: FentaNYL Citrate 50 MCG/ML 2 ML Injection IV ONE ×2 (21:10→22:55)
[2023-12-09] MEDS ORDERED: FLU VACC TS2024-25(6MOS UP)/PF 45 MCG/0.5 ML SYRINGE IM SCH (01:20)
[2023-12-09] MEDS ORDERED: HYDROmorphone HCl/Pf 1MG SYR IV ONE (04:00)
[2023-12-09 05:44] LABS: BASOPHILS ABSOLUTE AUTO 0.07 K/mm3 (0.00-0.23); BASOPHILS PERCENT AUTO 1 % (0-2); EOSINOPHILS ABSOLUTE AUTO 0.07 K/mm3 (0.00-0.68); EOSINOPHILS PERCENT AUTO 1 % (0-6); Hematocrit 43.4 % (33.0-51.0); Hemoglobin 14.4 g/dL (11.5-16.0); IMMATURE GRAN ABSOLUTE AUTO 0.03 K/mm3 (0.00-0.10); IMMATURE GRAN PERCENT AUTO 0 % (0-1); LYMPHOCYTES ABSOLUTE AUTO 1.35 K/mm3 (0.84-5.20); LYMPHOCYTES PERCENT AUTO 14 % (21-46); MONOCYTES ABSOLUTE AUTO 0.82 K/mm3 (0.16-1.47); MONOCYTES PERCENT AUTO 8 % (4-13); Mean Corpuscular HGB 28.9 pg (26.0-34.0); Mean Corpuscular HGB Conc 33.2 g/dL (31.5-36.5); Mean Corpuscular Volume 87 fL (80-100); Mean Platelet Volume 9.8 fL (9.1-12.4); NEUTROPHILS ABSOLUTE AUTO 7.54 K/mm3 (1.96-9.15); NEUTROPHILS PERCENT AUTO 76 % (41-73); Platelet Count 257 K/mm3 (150-400); RDW Coefficient Variation 12.5 % (11.7-14.2); RDW Standard Deviation 39.8 fL (35.1-46.3); Red Blood Cell Count 4.99 M/mm3 (3.80-5.20); White Blood Cell Count 9.88 K/mm3 (4.00-11.30)
[2023-12-09 06:25] LABS: Albumin, Blood 3.4 g/dL (3.4-5.0); Albumin/Globulin Ratio 1.3 (0.8-1.8); Bilirubin, Total 0.6 mg/dL (0.1-1.0); Bun/Creatinine Ratio 24.4 (12.0-20.0); Creatinine, Blood 0.53 mg/dL (0.40-1.00); Globulin, Blood 2.7 g/dL (2.2-4.0); Potassium, Blood 3.6 mmol/L (3.5-5.5); Total Protein, Blood 6.1 g/dL (6.4-8.2)
[2023-12-09] MEDS ORDERED: Insulin Human Lispro 100 Units/ML 3ML Syringe SC SCH (07:30)
[2023-12-09 08:58] VITALS: BP 158/101
[2023-12-09] MEDS ORDERED: Spironolactone 25 MG Tab PO SCH (09:00)
[2023-12-09] MEDS ORDERED: Sertraline HCl 50 MG Tab PO SCH (09:00)
[2023-12-09] MEDS ORDERED: dilTIAZem HCL 120 MG CAP.CD PO SCH (09:00)
[2023-12-09] MEDS ORDERED: Apixaban 5 MG Tab PO SCH (09:00)
[2023-12-09] MEDS ORDERED: Atorvastatin 40 MG Tab PO SCH (09:00)
[2023-12-09] MEDS ORDERED: Aspirin 81 MG Chew PO SCH (09:00)
[2023-12-09] MEDS ORDERED: Losartan Potassium 25 MG Tab PO SCH (09:00)
[2023-12-09] MEDS ORDERED: Bumetanide 1 MG Tab PO SCH (09:00)
[2023-12-09] MEDS ORDERED: LORazepam 2 MG/ML 1ML Injection IV PRN (10:30)
[2023-12-09] MEDS ORDERED: Vitamin D1000 UNI1 PO (13:00)
[2023-12-09] MEDS ORDERED: B-12500 MC2 PO (13:02)
[2023-12-09] MEDS ORDERED: C COMPLEX1000 M1 PO (13:03)
[2023-12-09] MEDS ORDERED: ZINC15 PO (13:03)
[2023-12-09] MEDS ORDERED: VISBIOME 112.51 EACH PO (13:05)
[2023-12-09] MEDS ORDERED: DIGOX250 MCG PO (13:08)
[2023-12-09] MEDS ORDERED: CEFD300 PO (13:09)
[2023-12-09 15:46] VITALS: BP 111/67
--- NOTE | 2023-12-09 18:17 | NUR ---
SHIFT SUMMARY: NEW ADMIT THIS AM. TWO RN SKIN CHECK COMPLETED BY MYSELF AND ARCADIO SHARMA. ONLY SKIN ISSUE NOTED IS EXCORIATION IN ESTEFANY AREA. PT STATES SHE HAS BEEN TAKING ABX FOR EAR INFECTION AND HAS NOW CAUSED YEAST INFECTION. PT RECEIVED MRI THIS SHIFT. ONE TIME ATIVAN GIVEN PRIOR TO MRI D/T SEVERE CLAUSTERPHOBIA. FAMILY AT BEDSIDE THROUGHOUT SHIFT. CALL LIGHT IN REACH. BED IN LOWEST POSITION. PT WORKED WITH PHYSICAL THERAPY THIS SHIFT. 1P ASSIST c FWW AND GB. CALL LIGHT IN REACH. BED IN LOWEST POSITION.
[2023-12-09 19:13] VITALS: BP 109/61
[2023-12-10 05:17] VITALS: BP 127/69
--- NOTE | 2023-12-10 06:13 | NUR ---
Patient alert and oriented x3, drowsy at beginning of shift, tolerating room air and resting comfortably in bed. Patient wearing home pull-up brief, denying needing use of restroom overnight, no evidence of incontinence; will continue to monitor. Pt. tolerating room air appropriately, responding to stimuli promptly, no evidence of neurological impairment.
[2023-12-10 07:45] VITALS: BP 136/88
--- NOTE | 2023-12-10 08:59 | NUR ---
CONTACTED DR STAUFFER REGARDING HR REACHING 180 WITH ACTIVITY, SUGGESTED TO RESTART HOME BETA CATARINO. ORDERS RECEIVED.
[2023-12-10] MEDS ORDERED: Metoprolol Succinate 50 MG TABCR PO SCH (09:00)
[2023-12-10] MEDS ORDERED: Ipratropium/Albuterol SulF 2.5-0.5MG/3 ML Amp INH PRN (12:50)
[2023-12-10] MEDS ORDERED: MetFORMIN HCl 500 mg PO SCH (13:00)
[2023-12-10] MEDS ORDERED: GlipiZIDE 5 MG Tab PO SCH (13:00)
[2023-12-10] MEDS ORDERED: ELIQUIS5 M2 PO (13:07)
[2023-12-10] MEDS ORDERED: ASPI81CH PO (15:03)
[2023-12-10 15:18] VITALS: BP 120/90
--- NOTE | 2023-12-10 17:21 | NUR ---
DISCHARGE SUMMARY PATIENT DISCHARGED HOME THIS SHIFT WITH DAUGHTER TO DRIVE. IV REMOVED PRIOR WITHOUT COMPLICATION. DISHCARGE PACKET GIVEN AND REVIEWED, INCLUDING ALL EDITS, VERBALIZED UNDERSTANDING. ELIQUIS DOSING ADJUSTED PER PHARMACY RECOMMENDATIONS VIA DOC TO 2.5MG BID. PATIENT AWARE, VERBALIZED UNDERSTANDING, DAUGHTER STATED SHE WOULD ASSIST WITH CUTTING HER CURRENT PILLS, CUTTER PROVIDED. HARD SCRIPT FOR GLUCOMETER AND STRIPS PROVIDED TO PATIENT.
[2023-12-11] MEDS ORDERED: Insulin Glargine-Yfgn 100 Unit/mL 3 ML SYR SC SCH (09:00)
[2023-12-11] MEDS ORDERED: Cholecalciferol 1000 Unit Tablet (=25MCG) PO SCH (09:00)
[2023-12-11] MEDS ORDERED: Cyanocobalamin 500 MCG Tab PO SCH (09:00)
[2023-12-11] MEDS ORDERED: Ascorbic Acid 500 MG Tab PO SCH (09:00)
[2023-12-11] MEDS ORDERED: PredniSONE 5 MG Tab PO SCH (09:00)
[2023-12-11] MEDS ORDERED: Anastrozole 1 MG TAB PO SCH (09:00)
[2023-12-11] MEDS ORDERED: Misc. Tablet PO SCH (09:00)
[2023-12-12] MEDS ORDERED: Digoxin 0.25 MG Tab PO SCH (09:00)
== END 2023-12-10 15:39 | disposition home or self-care (01) ==
LOC: ER 14:34 → MEDS 14:35 → ERHOLD 14:35 → MEDS 12-09 07:55 → ENPENDDIS 12-10 12:54 → MEDS 12-10 15:39
PROVIDERS: Family Medicine; Student in an Organized Health Care Education/Training Program; ADMIT Internal Medicine
DX: G45.9 Transient cerebral ischemic attack, unspecified (principal); I10 Essential (primary) hypertension; E11.9 Type 2 diabetes mellitus without complications; I48.20 Chronic atrial fibrillation, unspecified; J44.9 Chronic obstructive pulmonary disease, unspecified; E78.5 Hyperlipidemia, unspecified; K21.9 Gastro-esophageal reflux disease without esophagitis; Z79.01 Long term (current) use of anticoagulants; Z79.4 Long term (current) use of insulin; Z79.84 Long term (current) use of oral hypoglycemic drugs; Z79.899 Other long term (current) drug therapy; Z88.8 Allergy status to other drugs, medicaments and biological substances
CPT/HCPCS: 70450; 70496; 70498; 70551; 80053; 82947; 85025; 85651; 85730; 93005; 93010; 93306; 96374-59; 96375; 96375-59; 96376-59; 97161; 97530; 99285-25; A9270; G0378; J0360; J0780; J1170; J1815; J2060; J3010; Q9967

== ENCOUNTER → 2025-01-21 | Outpatient (CLI) | payer MEDICARE, BC ==
[~2025-01-21] MED LIST changes: +B-12500 MC2 PO; +C COMPLEX1000 M1 PO; +CEFD300 PO; +DIGOX250 MCG PO; +ELIQUIS5 M2 PO; +Vitamin D1000 UNI1 PO; +ZINC15 PO
[2025-01-21 11:55] LABS: BASOPHILS ABSOLUTE AUTO 0.06 K/mm3 (0.00-0.23); BASOPHILS PERCENT AUTO 1 % (0-2); EOSINOPHILS ABSOLUTE AUTO 0.11 K/mm3 (0.00-0.68); EOSINOPHILS PERCENT AUTO 1 % (0-6); Hematocrit 43.0 % (33.0-51.0); Hemoglobin 14.9 g/dL (11.5-16.0); IMMATURE GRAN ABSOLUTE AUTO 0.04 K/mm3 (0.00-0.10); IMMATURE GRAN PERCENT AUTO 1 % (0-1); LYMPHOCYTES ABSOLUTE AUTO 1.71 K/mm3 (0.84-5.20); LYMPHOCYTES PERCENT AUTO 20 % (21-46); MONOCYTES ABSOLUTE AUTO 0.61 K/mm3 (0.16-1.47); MONOCYTES PERCENT AUTO 7 % (4-13); Mean Corpuscular HGB Conc 34.7 g/dL (31.5-36.5); Mean Corpuscular Volume 93 fL (80-100); NEUTROPHILS ABSOLUTE AUTO 6.00 K/mm3 (1.96-9.15); NEUTROPHILS PERCENT AUTO 70 % (41-73); NRBC ABSOLUTE 0.00 K/mm3 (0.00-0.02); NRBC Auto 0.0 /100 WBC (0.0-0.2); Platelet Count 220 K/mm3 (150-400); RDW Coefficient Variation 13.2 % (11.7-14.2); RDW Standard Deviation 45.1 fL (35.1-46.3)
[2025-01-21 12:13] LABS: Alanine Aminotransfer (ALT/SGP 27.0 U/L (12-78); Albumin, Blood 3.9 g/dL (3.4-5.0); Albumin/Globulin Ratio 1.1 (0.8-1.8); Anion Gap 13.0 mmol/L (3-11); Aspartate Aminotrans (AST/SGOT 19.0 U/L (12-37); Bilirubin, Total 0.5 mg/dL (0.1-1.0); Blood Urea Nitrogen 18.0 mg/dL (8-24); CO2, Blood 27.0 mmol/L (21-32); Calcium, Blood 9.7 mg/dL (8.5-10.1); Chloride, Blood 100.0 mmol/L (98-108); Creatinine, Blood 0.8 mg/dL (0.40-1.00); Globulin, Blood 3.4 g/dL (2.2-4.0); Glucose, Blood 269.0 mg/dL (70-99); Potassium, Blood 4.4 mmol/L (3.5-5.5); Sodium, Blood 136.0 mmol/L (136-145); Total Protein, Blood 7.3 g/dL (6.4-8.2)
== END ==
LOC: LAB 11:51 → LAB SHORT 11:51
PROVIDERS: Physician Assistant Medical
DX: R06.02 Shortness of breath (principal)
CPT/HCPCS: 80053; 84484; 85025

== ENCOUNTER → 2025-01-21 | Outpatient (CLI) | payer MEDICARE, BC | LOC: LAB SHORT 13:05 → LAB 13:05 | DX: R06.02 Shortness of breath (principal) | CPT/HCPCS: 84484 ==